=== PATIENT | female | born 1950 | race Caucasian/White ===

== ENCOUNTER 2017-04-28 20:31 | Inpatient (IN) | payer MEDICAID, MEDICARE ==
[2017-04-28 20:53] LABS: BASO # 0.1 K/uL (0.0-0.2); BASO % 1.2 % (0.0-2.0); EOS # 0.2 K/uL (0.0-0.7); EOS % 3.2 % (0.0-4.0); HEMATOCRIT 38.4 % (34.0-47.0); LYMPH # 2.4 K/uL (1.0-4.3); LYMPH % 37.8 % (20.0-40.0); MEAN CELL VOLUME 84.5 fL (81.0-99.0); MEAN CORPUSCULAR HEMOGLOBIN 29.3 pg (27.0-31.0); MEAN CORPUSCULAR HGB CONC 34.7 g/dL (33.0-37.0); MEAN PLATELET VOLUME 7.5 fL (7.2-11.7); MONO # 0.4 K/uL (0.0-0.8); MONO % 5.9 % (0.0-10.0); NRBC % 0.1 % (0.0-2.0); WHITE BLOOD COUNT 6.5 K/uL (4.8-10.8)
[2017-04-28] MEDS ORDERED: Alum-Mag Hydrox-Simethicone Susp (30 mL) PO STA (20:58)
[2017-04-28 20:59] LABS: CHLORIDE 104 mmol/L (98-107)
[2017-04-28 21:00] LABS: POTASSIUM 4.1 mmol/L (3.6-5.2); SODIUM 141 mmol/L (132-148)
[2017-04-28] MEDS ORDERED: Aluminum Hydroxide/Magnesium Hydroxide Susp (30 mL) ONE (21:01)
[2017-04-28 21:02] LABS: ALB/GLOB RATIO 1.2 (1.0-2.1); ALKALINE PHOSPHATASE 115 U/L (38-126); AST/SGOT 27 U/L (14-36); BILIRUBIN,TOTAL 0.5 mg/dL (0.2-1.3); BLOOD UREA NITROGEN 9 mg/dL (7-17); CARBON DIOXIDE 24 mmol/L (22-30); GFR AFRICAN-AMERICAN > 60; TOTAL PROTEIN 7.3 g/dL (6.3-8.3)
[2017-04-28 21:03] LABS: ALT/SGPT 38 U/L (9-52); CALCIUM 8.7 mg/dl (8.6-10.4); GLUCOSE,RANDOM 200 mg/dL (65-105)
[2017-04-28] MEDS ORDERED: Nitroglycerin 2% Ointment Foilpak UD TOP STA (21:23)
[2017-04-28] MEDS ORDERED: Nitroglycerin 2% Ointment Foilpak UD TOP ONE (21:29)
[2017-04-28 21:36] LABS: MAGNESIUM 1.8 mg/dL (1.6-2.3)
--- NOTE | 2017-04-28 21:43 | C.PDOC ---
Time Seen by Provider: 04/28/17 20:42 Chief Complaint (Nursing): Chest Pain History Per: Patient Onset/Duration Of Symptoms: Days (about 3 weeks), Intermittent Episodes Current Symptoms Are (Timing): Still Present Severity: Moderate Quality: Burning, Pressure, "Pain" Associated Symptoms: Dyspnea Modifying Factors: Other Indicated Below Alleviating Factors: None Nitro Therapy Administered: 1, Per ED, Complete Relief Additional History Per: Prior Records Past Medical History Reviewed: Historical Data, Nursing Documentation, Vital Signs Vital Signs: Last Vital Signs Temp 98.2 F 04/28/17 20:43 Pulse 88 04/28/17 21:57 Resp 18 04/28/17 21:57 BP 154/70 H 04/28/17 21:57 Pulse Ox 96 04/28/17 21:57 - Medical History PMH: Arthritis, Asthma, Bipolar Disorder, Diabetes, Gastritis, HTN, Schizophrenia Surgical History: Cholecystectomy Family History: States: Unknown Family Hx - Social History Hx Tobacco Use: No Hx Alcohol Use: No Hx Substance Use: No - Immunization History Hx Tetanus Toxoid Vaccination: No Hx Influenza Vaccination: No Hx Pneumococcal Vaccination: No Review Of Systems Except As Marked, All Systems Reviewed And Found Negative. Constitutional: Negative for: Fever Cardiovascular: Positive for: Chest Pain Respiratory: Negative for: Hemoptysis Gastrointestinal: Positive for: Nausea. Negative for: Vomiting Genitourinary: Negative for: Dysuria Musculoskeletal: Positive for: Back Pain. Negative for: Neck Pain, Leg Pain Skin: Negative for: Rash Neurological: Negative for: Weakness, Numbness, Seizures, Altered Mental Status Physical Exam - Physical Exam Appears: In Acute Distress (mild) Skin: Normal Color, Warm, Dry, No Rash Head: Atraumatic, Normacephalic Eye(s): bilateral: Normal Inspection, PERRL, EOMI Neck: Normal ROM, Supple Chest: Symmetrical, No Deformity Cardiovascular: Rhythm Regular Respiratory: Normal Breath Sounds, No Accessory Muscle Use Gastrointestinal/Abdominal: Soft, No Tenderness Back: No CVA Tenderness Extremity: Normal ROM, No Pedal Edema, No Calf Tenderness Neurological/Psych: Oriented x3, Normal Motor, Normal Sensation ED Course And Treatment - Laboratory Results Result Diagrams: 04/28/17 20:45 04/28/17 20:45 Lab Interpretation: No Acute Changes ECG: Interpreted By Me, Viewed By Me ECG Rhythm: Sinus Tachycardia, Nonspecific Changes ECG Interpretation: Abnormal Interpretation Of ECG: Prolonged QTc Rate From EC O2 Sat by Pulse Oximetry: 98 Pulse Ox Interpretation: Normal - Radiology CXR: Interpreted by Me, Viewed By Me CXR Interpretation: Yes: No Acute Disease Progress - Interventions Interventions:: Observation, Oxygen - Medications Administered Oral: Antacid, Other (Plavix) - Data Reviewed Data Reviewed: Lab, Diagnostic imaging, EKG, Old records - Patient Status Patient status: Mostly improved - Critical Care Citical Care: Excluding Proc Time Critical Care Time: 45 minutes - Continuity of Care Discussed patient case with:: Patient, ED Nurse Disposition Discussed With : Darwin Arredondo Comment: He accepted pt on his service and gave admitting orders to the nurse. Doctor Will See Patient In The: Hospital Counseled Patient/Family Regarding: Studies Performed, Diagnosis - Disposition Disposition: HOSPITALIZED Disposition Time: 22:34 Condition: FAIR - Clinical Impression Clinical Impression: Chest pain, Hypertension
[2017-04-28] MEDS: QUEtiapine 200 mg XR Tab PO SCH (23:15)
[2017-04-29] MEDS: Oxycodone/Acetaminophen 5/325 mg Tab PO PRN ×3 (03:53→21:07)
--- NOTE | 2017-04-29 08:40 | RAD ---
HISTORY: chest pain htn COMPARISON: S radiographs 01/21/2015 FINDINGS: LUNGS: No active pulmonary disease. PLEURA: No significant pleural effusion identified, no pneumothorax apparent. CARDIOVASCULAR: Normal. OSSEOUS STRUCTURES: No significant abnormalities. VISUALIZED UPPER ABDOMEN: Normal. OTHER FINDINGS: None. IMPRESSION: No acute cardiopulmonary disease or significant interval change compared to 01/21/2015 radiographs.
--- NOTE | 2017-04-29 11:22 | CP.PCM.PN ---
Subjective - Date & Time of Evaluation Date of Evaluation: 04/29/17 Time of Evaluation: 07:45 - Subjective Subjective: PGY-[address] Arredondo Patient seen and examined at bedside. Patient reports to have an episode chest pain early in the morning. Pain medication was given and pain was resolved. Patient reports she had a stress test done many years ago and does not remember the results. Patient reports that she has many family members had cardiovascular disease. Patient denies headache, fever, chills, shortness of breath, nausea, vomiting or diarrhea. Objective - Vital Signs/Intake and Output Vital Signs (last 24 hours): Temp Pulse Resp BP Pulse Ox 97.4 F L 85 20 118/64 98 04/29/17 07:15 04/29/17 07:15 04/29/17 07:15 04/29/17 07:15 04/29/17 07:15 Intake and Output: 04/29/17 04/29/17 06:59 18:59 Intake Total 240 Balance 240 - Medications Medications: Current Medications Clonazepam (Klonopin) 0.5 mg PO TID [facility] Last Admin: 04/29/17 09:52 Dose: 0.5 mg Clopidogrel Bisulfate (Plavix) 75 mg PO DAILY [facility] Last Admin: 04/29/17 09:52 Dose: 75 mg Gabapentin (Neurontin) 1,200 mg PO BID [facility] Last Admin: 04/29/17 09:52 Dose: 1,200 mg Heparin Sodium/Sodium Chloride (Heparin 18255 Units/250ml 1/2 Normal Saline) 25 ,000 units in 250 mls @ 8.981 mls/hr IV .Q24H PRN; Protocol; 12 UNITS/KG/HR PRN Reason: PROTOCOL Metoprolol Tartrate (Lopressor) 50 mg PO BID [facility] Last Admin: 04/29/17 09:52 Dose: 50 mg Nitroglycerin (Nitrostat Sl Tab) 0.4 mg SL Q5M PRN PRN Reason: chest pain Oxycodone/Acetaminophen (Percocet 5/325 Mg Tab) 1 tab PO Q4H PRN PRN Reason: Pain, moderate (4-7) Stop: 05/01/17 22:39 Last Admin: 04/29/17 08:58 Dose: 1 tab Pneumococcal Polyvalent Vaccine (Pneumovax 23 Vaccine) 0.5 ml IM .ONCE ONE Stop: 05/01/17 14:01 Quetiapine Fumarate (Seroquel Xr) 600 mg PO HS [facility] Last Admin: 04/28/17 23:15 Dose: 600 mg - Labs Labs: PT 11.6 SECONDS (9.7-12.2) 04/28/17 20:45 INR 1.0 04/28/17 20:45 APTT 34 SECONDS (21-34) 04/28/17 20:45 - Constitutional Appears: Non-toxic, No Acute Distress - Head Exam Head Exam: ATRAUMATIC - Eye Exam Eye Exam: Normal appearance - ENT Exam ENT Exam: Mucous Membranes Moist - Neck Exam Neck Exam: Normal Inspection - Respiratory Exam Respiratory Exam: Clear to Ausculation Bilateral, NORMAL BREATHING PATTERN. absent: Respiratory Distress - Cardiovascular Exam Cardiovascular Exam: REGULAR RHYTHM, +S1, +S2 - GI/Abdominal Exam GI & Abdominal Exam: Soft, Normal Bowel Sounds. absent: Tenderness - Extremities Exam Extremities Exam: Full ROM, Normal Capillary Refill, Normal Inspection. absent : Joint Swelling, Pedal Edema - Neurological Exam Neurological Exam: Alert, Awake, Oriented x3 - Psychiatric Exam Psychiatric exam: Normal Affect, Normal Mood - Skin Skin Exam: Normal Color, Warm Assessment and Plan - Assessment and Plan (Free Text) Assessment: Chest pain -Cardiology consult, Dr. Rowe help appreciated -Planned for cardiac cath on Tuesday -Positive troponin at 0.1920 x2 -EKG showed sinus tachycardia at [address] changes -CXR no active disease -Plavix 75mg po, allergic to ASA -Heparin 1000 unit/hr, after 5000 unit bolus -Nitroglycerin 0.4mg Q5m prn -O2 via NC HTN -metoprolol 50mg po BID DM -A1c 8.6 -ISS -accucheck ACHS -Januvia 100mg (pt takes Onglyza 5mg po, pharmacy confirmed) Bipolar disorder -Seroquel 600mg hs PPX -Heparin -Protonix Case discussed with Dr. Arredondo
[2017-04-29] MEDS: Heparin25000 units/250ml 1/2NS 25,000 UNITS/250 ML BAG IV PRN (12:06)
[2017-04-29] MEDS: (Novolog) Insulin Aspart, Recombinant 100 u/ml 10 ml vial SC SCH ×3 (12:44→21:51)
[2017-04-29 17:05] LABS: CHOLESTEROL 160 mg/dL (0-199)
--- NOTE | 2017-04-29 17:13 | CARD ---
APPROVED REPORT EXAM: Two-dimensional and M-mode echocardiogram with Doppler and color Doppler. Other Information Quality : GoodRhythm : NSR INDICATION Chest Pain Acute Coronary Syndrome RISK FACTORS Hypertension 2D DIMENSIONS IVSd1.3 (0.7-1.1cm)LVDd3.9 (3.9-5.9cm) PWd1.3 (0.7-1.1cm)LVDs2.7 (2.5-4.0cm) FS (%) 30.2 %LVEF (%)58.2 (>50%) M-Mode DIMENSIONS Left Atrium (MM)3.52 (2.5-4.0cm)IVSd0.96 (0.7-1.1cm) Aortic Root3.06 (2.2-3.7cm)LVDd4.86 (4.0-5.6cm) Aortic Cusp Exc.2.00 (1.5-2.0cm)PWd0.94 (0.7-1.1cm) FS (%) 32 %LVDs3.29 (2.0-3.8cm) LVEF (%)60 (>50%) Mitral Valve MV E Mweibzdk52.9cm/sMV A Jtacmyts067.1cm/sE/A ratio0.6 TDI E/Lateral E'0.0E/Medial E'0.0 LEFT VENTRICLE The left ventricle is normal size. There is mild concentric left ventricular hypertrophy. Left ventricle systolic function is normal. The Ejection Fraction is 55-60%. There is normal LV segmental wall motion. Tissue Doppler imaging reveals abnormal left ventricular diastolic dysfunction. RIGHT VENTRICLE The right ventricle is normal size. There is normal right ventricular wall thickness. The right ventricular systolic function is normal. ATRIA The left atrium size is normal. The right atrium size is normal. The interatrial septum is intact with no evidence for an atrial septal defect. AORTIC VALVE The aortic valve is normal in structure. No aortic regurgitation is present. There is no aortic valvular stenosis. There is no aortic valvular vegetation. MITRAL VALVE The mitral valve is normal in structure. There is no evidence of mitral valve prolapse. There is no mitral valve stenosis. There is no mitral valve regurgitation noted. TRICUSPID VALVE The tricuspid valve is normal in structure. There is no tricuspid valve regurgitation noted. There is no tricuspid valve prolapse or vegetation. There is no tricuspid valve stenosis. PULMONIC VALVE The pulmonic valve is not well visualized. There is no pulmonic valvular regurgitation. GREAT VESSELS The aortic root is normal in size. PERICARDIAL EFFUSION There is no significant pericardial effusion. <Conclusion> Left ventricle systolic function is normal. The Ejection Fraction is 55-60%. Hypertensive heart disease. Diastolic dysfunction. No aortic regurgitation is present. There is no mitral valve regurgitation noted. There is no tricuspid valve regurgitation noted. There is no pulmonic valvular regurgitation.
[2017-04-29] MEDS: QUEtiapine 200 mg XR Tab PO SCH (21:00)
[2017-04-29] MEDS ORDERED: QUEtiapine 200 mg XR Tab PO SCH ×2 (22:00)
--- NOTE | 2017-04-29 22:21 | HP ---
HISTORY OF PRESENT ILLNESS: A 66-year-old female admitted to the hospital with chief complaint of chest pain, which is sternal. The patient came to the emergency room, advised admission. The patient has hypertension and diabetes. The patient is a nonsmoker. PHYSICAL EXAMINATION: GENERAL: The patient is awake, obese. VITAL SIGNS: Temperature 98, pulse 90. HEENT: Within normal limits. NECK: Supple. CHEST: Symmetrical. HEART: Regular. ABDOMEN: Soft. EXTREMITIES: No edema. IMPRESSION: The patient suffers from acute coronary syndrome . Darwin Arredondo MD
--- NOTE | 2017-04-30 06:46 | CP.PCM.CON ---
History of Present Illness - History of Present Illness History of Present Illness: CC: Consult for Non St elevation [place] HPI: 66 F with strong F Hx of CAD/[place], HTN, Hyperlipidemia and Obesity admitted for chest pain radiating to back. susequently ruled in for [place] Patient allergic to ASA. started on IV Heparin, Plavix, Statins and B blockers Will check ECHO For cath Tuesday D/W Patient Review of Systems - Cardiovascular Cardiovascular: Chest Pain - Respiratory Respiratory: Dyspnea - Gastrointestinal Gastrointestinal: absent: Abdominal Pain Past Patient History - Past Medical History & Family History Past Medical History?: Yes - Past Social History Smoking Status: Former Smoker - CARDIAC Hx Cardiac Disorders: Yes Hx Angina: No Hx Atrial Fibrillation: No Hx Cardia Arrhythmia: No Hx Circulatory Problems: No Hx Congestive Heart Failure: No Hx Heart Attack: No Hx Heart Murmur: No Hx Heart Transplant: No Hx Hypercholesterolemia: No Hx Hypertension: Yes Hx Hypotension: No Hx Internal Defibrillator: No Hx Mitral Valve Prolapse: No Hx Pacemaker: No Hx Peripheral Edema: No Hx Peripheral Vascular Disease: No - PULMONARY Hx Respiratory Disorders: Yes Hx Asthma: Yes Hx Bronchitis: No Hx Chronic Obstructive Pulmonary Disease (COPD): No Hx Emphysema: No Hx Lung Cancer: No Hx Pneumonia: No Hx Pulmonary Edema: No Hx Pulmonary Embolism: No Hx Respiratory Aspiration: No Hx Respiratory Tract Infection: No Hx Sleep Apnea: No Hx Tuberculosis: No - NEUROLOGICAL Hx Neurological Disorder: No Hx Alzheimer's Disease: No HX Cerebrovascular Accident: No Hx Dementia: No Hx Dizziness: No Hx Meningitis: No Hx Migraine: No Hx Multiple Sclerosis: No Hx Paralysis: No Hx Parkinson's Disease: No Hx Seizures: No Hx Syncope: No Hx Transient Ischemic Attacks (TIA): No Hx Vertigo: No - HEENT Hx HEENT Problems: No Hx Blind: No Hx Cataracts: No Hx Deafness: No Hx Difficulty Chewing: No Hx Epistaxis: No Hx Glaucoma: No Hx Macular Degeneration: No Hx Sinusitis: No - RENAL Hx Chronic Kidney Disease: No Hx Dialysis: No Hx Kidney Stones: No Hx Neurogenic Bladder: No Hx Pyelonephritis: No Hx Renal (Kidney) Cancer: No Hx Renal Failure: No - ENDOCRINE/METABOLIC Hx Endocrine Disorders: Yes Hx Adrenal Cancer: No Hx Diabetes Insipidus: No Hx Diabetes Mellitus Type 1: No Hx Diabetes Mellitus Type 2: Yes Hx Hyperthyroidism: No Hx Hypothyroidism: No Hx Systemic Lupus Erythematosus: No - HEMATOLOGICAL/ONCOLOGICAL Hx Blood Disorders: No Hx AIDS: No Hx Anemia: No Hx Blood Transfusions: No Hx Blood Transfusion Reaction: No Hx Bruising: No Hx Cancer: No Hx Chemotherapy: No Hx Cirrhosis: No Hx Gum Bleeding: No Hx Hemophilia: No Hx Hepatitis A: No Hx Hepatitis B: No Hx Hepatitis C: No Hx Human Immunodeficiency Virus (HIV): No Hx Leukemia: No Hx Metastesis: No Hx Shingles: No Hx Sickle Cell Disease: No Hx Unexplained Bleeding: No Hx von Willebrand's Disease: No - INTEGUMENTARY Hx Dermatological Problems: No Hx Basil Cell: No Hx Whatley: No Hx Cellulitis: No Hx Eczema: No Hx Melanoma: No Hx Psoriasis: No Hx Squamous Cell: No - MUSCULOSKELETAL/RHEUMATOLOGICAL Hx Musculoskeletal Disorders: Yes Hx Arthritis: Yes Hx Back Pain: No Hx Degenerative Joint Disease: No Hx Falls: No Hx Fractures: No Hx Gout: No Hx Herniated Disk: No Hx Myasthenia Gravis: No Hx Osteoarthritis: No Hx Osteomyelitis: No Hx Osteoporosis: No Hx Rhabdomyolysis: No Hx Rheumatoid Arthritis: No Hx Spinal Stenosis: No Hx Unsteady Gait: No - GASTROINTESTINAL Hx Gastrointestinal Disorders: Yes Hx Bowel Surgery: No Hx Clostridium Difficile: No Hx Colitis: No Hx Colostomy: No Hx Constipation: No Hx Crohn's Disease: No Hx Diarrhea: No Hx Diverticulitis: No Hx Esophageal Varices: No Hx Fatty Liver Disease: No Hx Gall Bladder Disease: No Hx Gastritis: Yes Hx Gastroesophageal Reflux: No Hx Hemorrhoids: No Hx Ileostomy: No Hx Irritable Bowel: No Hx Liver Failure: No Hx Nausea: No Hx Pancreatitis: No HX Swallowing Problems: No Hx Ulcer: No Hx Vomiting: No - GENITOURINARY/GYNECOLOGICAL Hx Genitourinary Disorders: No Hx Bladder Cancer: No Hx Bladder Stone: No Hx Cervical Cancer: No Hx Hematuria: No Hx Incontinence: No Hx Ovarian Cancer: No Hx Postmenopausal Bleeding: No Hx Reproductive Disorders: No Hx Sexually Transmitted Disorders: No Hx Uterine Cancer: No Hx Urinary Tract Infection: No - PSYCHIATRIC Hx Psychophysiologic Disorder: Yes Hx Anxiety: No Hx Bipolar Disorder: Yes Hx Depression: No Hx Emotional Abuse: No Hx Hallucinations: No Hx Panic Symptoms: No Hx Paranoia: No Hx Post Traumatic Stress Disorder: No Hx Psychosis: No Hx Physical Abuse: No Hx Schizophrenia: Yes Hx Sexual Abuse: No Hx Substance Use: No - SURGICAL HISTORY Hx Surgeries: Yes Hx Abdominal Aortic Aneurysm Repair: No Hx Amputation: No Hx Angiogram: No Hx Angioplasty: No Hx Appendectomy: No Hx Arteriovenous Shunt: No Hx Arthroscopy: No Hx Bile Duct Stent: No Hx Breast Biopsy: No Hx Cataract Extraction: No Hx Cardiac Catheterization: No Hx Carotid Endarterectomy: No Hx Section: No Hx Cholecystectomy: Yes Hx Coronary Artery Bypass Graft: No Hx Coronary Stent: No Hx Dilation and Curettage: No Hx Eye Surgery: No Hx Femoral-Popliteal Bypass Graft: No Hx Gastric Bypass Surgery: No Hx Herniorrhaphy: No Hx Hysterectomy: No Hx Joint Replacement: No Hx Kidney Transplant: No Hx Liver Transplant: No Hx Mastectomy: No Hx Musculoskeletal Surgery: No Hx Open Heart Surgery: No Hx Open Reduction Internal Fixation: No Hx Orthopedic Surgery: No Hx Parathyroidectomy: No Hx Penile Implant: No Hx Pulmonary Surgery: No Hx Splenectomy: No Hx Thyroidectomy: No Hx Tonsillectomy: No Hx Tubal Ligation: No Hx Valve Replacement: No Hx Vascular Surgery: No Hx Vascular Access Device: No Meds Allergies/Adverse Reactions: Allergies Allergy/AdvReac Type Severity Reaction Status Date / Time aspirin Allergy Severe hives Verified 04/28/17 20:41 seafood Allergy Severe hives Uncoded 04/28/17 20:41 - Medications Medications: Current Medications Clonazepam (Klonopin) 0.5 mg PO TID [facility] Last Admin: 04/29/17 17:37 Dose: 0.5 mg Clopidogrel Bisulfate (Plavix) 75 mg PO DAILY [facility] Last Admin: 04/29/17 09:52 Dose: 75 mg Famotidine (Pepcid) 20 mg PO DAILY [facility] Gabapentin (Neurontin) 1,200 mg PO BID [facility] Last Admin: 04/29/17 17:37 Dose: 1,200 mg Heparin Sodium/Sodium Chloride (Heparin 64107 Units/250ml 1/2 Normal Saline) 25 ,000 units in 250 mls @ 8.981 mls/hr IV .Q24H PRN; Protocol; 12 UNITS/KG/HR PRN Reason: PROTOCOL Last Admin: 04/29/17 12:06 Dose: 12 units/kg/hr, 8.981 mls/hr Insulin Aspart (Novolog) 0 unit SC ACHS REPLACED BY [facility] PRN Reason: Protocol Last Admin: 04/29/17 21:51 Dose: Not Given Metoprolol Tartrate (Lopressor) 50 mg PO BID [facility] Last Admin: 04/29/17 17:38 Dose: 50 mg Nitroglycerin (Nitrostat Sl Tab) 0.4 mg SL Q5M PRN PRN Reason: chest pain Oxycodone/Acetaminophen (Percocet 5/325 Mg Tab) 1 tab PO Q4H PRN PRN Reason: Pain, moderate (4-7) Stop: 05/01/17 22:39 Last Admin: 04/29/17 21:07 Dose: 1 tab Pneumococcal Polyvalent Vaccine (Pneumovax 23 Vaccine) 0.5 ml IM .ONCE ONE Stop: 05/01/17 14:01 Quetiapine Fumarate (Seroquel Xr) 600 mg PO [facility] Last Admin: 04/29/17 21:00 Dose: 600 mg Sitagliptin Phosphate (Januvia) 100 mg PO DAILY [facility] Physical Exam - Head Exam Head Exam: ATRAUMATIC, NORMAL INSPECTION - Eye Exam Eye Exam: EOMI, PERRL Pupil Exam: NORMAL ACCOMODATION - ENT Exam ENT Exam: Mucous Membranes Moist, Normal Exam - Neck Exam Neck exam: Positive for: Normal Inspection - Respiratory Exam Respiratory Exam: Clear to Auscultation Bilateral, NORMAL BREATHING PATTERN - Cardiovascular Exam Cardiovascular Exam: REGULAR RHYTHM, +S1, +S2 - GI/Abdominal Exam GI & Abdominal Exam: Normal Bowel Sounds, Soft - Back Exam Back exam: NORMAL INSPECTION - Neurological Exam Neurological exam: Alert, CN II-XII Intact, Oriented x3 - Psychiatric Exam Psychiatric exam: Normal Mood - Skin Skin Exam: Warm Results - Vital Signs Recent Vital Signs: Last Vital Signs Temp 97.9 F 04/29/17 23:40 Pulse 81 04/30/17 00:26 Resp 20 04/29/17 23:40 BP 122/63 04/29/17 23:40 Pulse Ox 97 04/29/17 23:40 - Labs Result Diagrams: 05/01/17 07:18 05/01/17 07:18 Labs: Laboratory Results - last 24 hr 04/29/17 04/29/17 04/29/17 06:23 07:09 11:06 APTT POC Glucose (mg/dL) 151 H 168 H Total Creatine Kinase 51 CK-MB (Mass) 1.82 Troponin I, Quant 0.1920 H* Triglycerides Cholesterol LDL Cholesterol Direct HDL Cholesterol 04/29/17 04/29/17 04/29/17 13:46 16:21 16:54 APTT POC Glucose (mg/dL) 115 H Total Creatine Kinase 47 CK-MB (Mass) 1.47 Troponin I, Quant 0.1920 H* Triglycerides 276 H Cholesterol 160 LDL Cholesterol Direct 100 HDL Cholesterol 34 04/29/17 04/29/17 04/29/17 18:25 21:09 23:55 APTT 78 H D 86 H D POC Glucose (mg/dL) 182 H Total Creatine Kinase CK-MB (Mass) Troponin I, Quant Triglycerides Cholesterol LDL Cholesterol Direct HDL Cholesterol Assessment & Plan - Assessment and Plan (Free Text) Assessment: 1. Chest Pain 2. Non St elevation [place] 3. Obesity 4. Hx of tobacco use 5. Hyperlipidemia 6. strong F hx of CAD/[place] Patient on anti ischemic therapy For cath Tuesday
[2017-04-30] MEDS: (Novolog) Insulin Aspart, Recombinant 100 u/ml 10 ml vial SC SCH ×4 (07:33→21:55)
[2017-04-30 08:11] LABS: BASO # 0.1 K/uL (0.0-0.2); EOS # 0.2 K/uL (0.0-0.7); EOS % 3.2 % (0.0-4.0); LYMPH # 1.7 K/uL (1.0-4.3); LYMPH % 30.8 % (20.0-40.0); MEAN CELL VOLUME 83.7 fL (81.0-99.0); MEAN CORPUSCULAR HEMOGLOBIN 28.8 pg (27.0-31.0); MEAN CORPUSCULAR HGB CONC 34.4 g/dL (33.0-37.0); MEAN PLATELET VOLUME 7.5 fL (7.2-11.7); MONO # 0.4 K/uL (0.0-0.8); MONO % 6.7 % (0.0-10.0); NRBC % 0.1 % (0.0-2.0); RED CELL DISTRIBUTION WIDTH 13.2 % (11.5-14.5); WHITE BLOOD COUNT 5.6 K/uL (4.8-10.8)
[2017-04-30 08:31] LABS: ALB/GLOB RATIO 1.1 (1.0-2.1); ALKALINE PHOSPHATASE 121 U/L (38-126); ALT/SGPT 39 U/L (9-52); AST/SGOT 23 U/L (14-36); BILIRUBIN,TOTAL 0.4 mg/dL (0.2-1.3); BLOOD UREA NITROGEN 10 mg/dL (7-17); CALCIUM 9.1 mg/dl (8.6-10.4); CARBON DIOXIDE 28 mmol/L (22-30); CHLORIDE 99 mmol/L (98-107); GFR AFRICAN-AMERICAN > 60; GLUCOSE,RANDOM 148 mg/dL (65-105); POTASSIUM 4.2 mmol/L (3.6-5.2); SODIUM 138 mmol/L (132-148); TOTAL PROTEIN 6.7 g/dL (6.3-8.3)
[2017-04-30] MEDS: Oxycodone/Acetaminophen 5/325 mg Tab PO PRN ×2 (08:36→21:37)
[2017-04-30] MEDS: Heparin25000 units/250ml 1/2NS 25,000 UNITS/250 ML BAG IV PRN (17:06)
--- NOTE | 2017-04-30 21:30 | CP.PCM.PN ---
Subjective - Date & Time of Evaluation Date of Evaluation: 04/30/17 Time of Evaluation: 13:05 - Subjective Subjective: Patient seen and evaluated Feels better No more chest discomfort Objective - Vital Signs/Intake and Output Vital Signs (last 24 hours): Temp Pulse Resp BP Pulse Ox 98.5 F 81 20 123/76 95 04/30/17 16:19 04/30/17 16:19 04/30/17 16:19 04/30/17 16:19 04/30/17 16:19 Intake and Output: 04/30/17 05/01/17 18:59 06:59 Intake Total 250 Balance 250 - Medications Medications: Current Medications Clonazepam (Klonopin) 0.5 mg PO TID [facility] Last Admin: 04/30/17 17:08 Dose: 0.5 mg Clopidogrel Bisulfate (Plavix) 75 mg PO DAILY [facility] Last Admin: 04/30/17 09:46 Dose: 75 mg Famotidine (Pepcid) 20 mg PO DAILY [facility] Last Admin: 04/30/17 09:47 Dose: 20 mg Gabapentin (Neurontin) 1,200 mg PO BID [facility] Last Admin: 04/30/17 17:08 Dose: 1,200 mg Heparin Sodium/Sodium Chloride (Heparin 69504 Units/250ml 1/2 Normal Saline) 25 ,000 units in 250 mls @ 8.981 mls/hr IV .Q24H PRN; Protocol; 12 UNITS/KG/HR PRN Reason: PROTOCOL Last Admin: 04/30/17 17:06 Dose: 12 units/kg/hr, 8.981 mls/hr Insulin Aspart (Novolog) 0 unit SC ACHS [facility] PRN Reason: Protocol Last Admin: 04/30/17 19:42 Dose: Not Given Metoprolol Tartrate (Lopressor) 50 mg PO BID [facility] Last Admin: 04/30/17 17:10 Dose: 50 mg Nitroglycerin (Nitrostat Sl Tab) 0.4 mg SL Q5M PRN PRN Reason: chest pain Oxycodone/Acetaminophen (Percocet 5/325 Mg Tab) 1 tab PO Q4H PRN PRN Reason: Pain, moderate (4-7) Stop: 05/01/17 22:39 Last Admin: 04/30/17 08:36 Dose: 1 tab Pneumococcal Polyvalent Vaccine (Pneumovax 23 Vaccine) 0.5 ml IM .ONCE ONE Stop: 05/01/17 14:01 Quetiapine Fumarate (Seroquel Xr) 600 mg PO HS [facility] Last Admin: 04/29/17 21:00 Dose: 600 mg Sitagliptin Phosphate (Januvia) 100 mg PO DAILY [facility] Last Admin: 04/30/17 09:47 Dose: 100 mg - Labs Labs: 04/30/17 07:56 04/30/17 07:56 PT 11.6 SECONDS (9.7-12.2) 04/28/17 20:45 INR 1.0 04/28/17 20:45 APTT 86 SECONDS (21-34) H D 04/29/17 23:55 - Head Exam Head Exam: ATRAUMATIC, NORMAL INSPECTION, NORMOCEPHALIC - Eye Exam Eye Exam: EOMI, Normal appearance, PERRL Pupil Exam: NORMAL ACCOMODATION - ENT Exam ENT Exam: Mucous Membranes Moist, Normal Exam - Neck Exam Neck Exam: Normal Inspection - Respiratory Exam Respiratory Exam: Clear to Ausculation Bilateral, NORMAL BREATHING PATTERN - Cardiovascular Exam Cardiovascular Exam: REGULAR RHYTHM, +S1, +S2 - GI/Abdominal Exam GI & Abdominal Exam: Soft, Normal Bowel Sounds - Extremities Exam Extremities Exam: Full ROM - Neurological Exam Neurological Exam: Alert, CN II-XII Intact, Oriented x3 - Skin Skin Exam: Warm Assessment and Plan - Assessment and Plan (Free Text) Assessment: 1. Chest Pain 2. Non St elevation [place] 3. Obesity 4. Hx of tobacco use 5. Hyperlipidemia 6. strong F hx of CAD/[place] Patient on anti ischemic therapy For cath Tuesday Change Heparin IV to DVT prophylaxis
[2017-04-30] MEDS: QUEtiapine 200 mg XR Tab PO SCH (21:38)
[2017-05-01] MEDS: Oxycodone/Acetaminophen 5/325 mg Tab PO PRN ×2 (06:18→16:41)
[2017-05-01] MEDS: (Novolog) Insulin Aspart, Recombinant 100 u/ml 10 ml vial SC SCH ×4 (07:40→23:45)
[2017-05-01 07:45] LABS: BASO # 0.1 K/uL (0.0-0.2); EOS # 0.2 K/uL (0.0-0.7); EOS % 3.2 % (0.0-4.0); HEMATOCRIT 38.8 % (34.0-47.0); LYMPH # 2.2 K/uL (1.0-4.3); LYMPH % 40.1 % (20.0-40.0); MEAN CELL VOLUME 84.4 fL (81.0-99.0); MEAN CORPUSCULAR HEMOGLOBIN 28.9 pg (27.0-31.0); MEAN CORPUSCULAR HGB CONC 34.3 g/dL (33.0-37.0); MEAN PLATELET VOLUME 7.6 fL (7.2-11.7); MONO # 0.4 K/uL (0.0-0.8); MONO % 7.1 % (0.0-10.0); NRBC % 0.2 % (0.0-2.0); WHITE BLOOD COUNT 5.4 K/uL (4.8-10.8)
[2017-05-01 07:54] LABS: ALB/GLOB RATIO 1.2 (1.0-2.1); ALKALINE PHOSPHATASE 118 U/L (38-126); ALT/SGPT 33 U/L (9-52); AST/SGOT 23 U/L (14-36); BILIRUBIN,TOTAL 0.4 mg/dL (0.2-1.3); BLOOD UREA NITROGEN 12 mg/dL (7-17); CALCIUM 9.4 mg/dl (8.6-10.4); CARBON DIOXIDE 26 mmol/L (22-30); CHLORIDE 98 mmol/L (98-107); GFR AFRICAN-AMERICAN > 60; GLUCOSE,RANDOM 163 mg/dL (65-105); POTASSIUM 3.9 mmol/L (3.6-5.2); SODIUM 136 mmol/L (132-148); TOTAL PROTEIN 6.9 g/dL (6.3-8.3)
[2017-05-01] MEDS ORDERED: Pneumococcal 23-Valent Vaccine IM ONE (14:00)
--- NOTE | 2017-05-01 14:47 | US ---
PROCEDURE: Ultrasound of the Bladder HISTORY: right flank pain COMPARISON: None available. TECHNIQUE: Sonographic evaluation of the bladder was performed. FINDINGS: Unremarkable without wall thickening or intraluminal debris. No calculus or gross mass lesion. No free fluid in pelvis. Prevoid Volume: 215.6 cc. Post void residual: 36.3 cc. IMPRESSION: Unremarkable sonogram of the bladder.
[2017-05-01 17:48] LABS: RBC URINE 1 /hpf (0-3); URINE BILIRUBIN NEGATIVE (NEGATIVE); URINE BLOOD NEGATIVE (NEGATIVE); URINE COLOR Colorless (YELLOW); URINE GLUCOSE (UA) NORMAL (Normal); URINE KETONE NEGATIVE (NEGATIVE); URINE LEUKOCYTE ESTERASE NEG Leu/uL (Negative); URINE PROTEIN NEGATIVE (NEGATIVE); URINE UROBILINOGEN NORMAL mg/dL (0.2-1.0); WBC URINE 1 /hpf (0-5)
--- NOTE | 2017-05-01 19:48 | CP.PCM.PN ---
Subjective - Date & Time of Evaluation Date of Evaluation: 05/01/17 Time of Evaluation: 14:30 - Subjective Subjective: Patient seen and evaluated Denies chest pain and dyspnea Objective - Vital Signs/Intake and Output Vital Signs (last 24 hours): Temp Pulse Resp BP Pulse Ox 98.2 F 78 20 124/82 94 L 05/01/17 15:00 05/01/17 15:30 05/01/17 15:00 05/01/17 15:00 05/01/17 15:00 Intake and Output: 05/01/17 05/02/17 18:59 06:59 Intake Total 0 Balance 0 - Medications Medications: Current Medications Clonazepam (Klonopin) 0.5 mg PO TID [facility] Last Admin: 05/01/17 17:23 Dose: 0.5 mg Clopidogrel Bisulfate (Plavix) 75 mg PO DAILY [facility] Last Admin: 05/01/17 10:01 Dose: 75 mg Famotidine (Pepcid) 20 mg PO DAILY [facility] Last Admin: 05/01/17 10:01 Dose: 20 mg Gabapentin (Neurontin) 1,200 mg PO BID [facility] Last Admin: 05/01/17 17:23 Dose: 1,200 mg Heparin Sodium/Sodium Chloride (Heparin 94989 Units/250ml 1/2 Normal Saline) 25 ,000 units in 250 mls @ 8.981 mls/hr IV .Q24H PRN; Protocol; 12 UNITS/KG/HR PRN Reason: PROTOCOL Last Titration: 05/01/17 10:21 Dose: 12 units/kg/hr, 8.981 mls/hr Insulin Aspart (Novolog) 0 unit SC ACHS [facility] PRN Reason: Protocol Last Admin: 05/01/17 16:42 Dose: Not Given Metoprolol Tartrate (Lopressor) 50 mg PO BID [facility] Last Admin: 05/01/17 18:54 Dose: 50 mg Nitroglycerin (Nitrostat Sl Tab) 0.4 mg SL Q5M PRN PRN Reason: chest pain Oxycodone/Acetaminophen (Percocet 5/325 Mg Tab) 1 tab PO Q4H PRN PRN Reason: Pain, moderate (4-7) Stop: 05/01/17 22:39 Last Admin: 05/01/17 16:41 Dose: 1 tab Quetiapine Fumarate (Seroquel Xr) 600 mg PO [facility] Last Admin: 04/30/17 21:38 Dose: 600 mg Sitagliptin Phosphate (Januvia) 100 mg PO DAILY [facility] Last Admin: 05/01/17 10:02 Dose: 100 mg - Labs Labs: 05/01/17 07:18 05/01/17 07:18 PT 11.6 SECONDS (9.7-12.2) 04/28/17 20:45 INR 1.0 04/28/17 20:45 APTT 68 SECONDS (21-34) H D 05/01/17 07:18 - Head Exam Head Exam: ATRAUMATIC, NORMAL INSPECTION, NORMOCEPHALIC - Eye Exam Eye Exam: EOMI, PERRL Pupil Exam: NORMAL ACCOMODATION - ENT Exam ENT Exam: Mucous Membranes Moist, Normal Exam - Neck Exam Neck Exam: Full ROM, Normal Inspection - Respiratory Exam Respiratory Exam: Clear to Ausculation Bilateral, NORMAL BREATHING PATTERN - Cardiovascular Exam Cardiovascular Exam: REGULAR RHYTHM, +S1, +S2 - GI/Abdominal Exam GI & Abdominal Exam: Soft, Normal Bowel Sounds - Back Exam Back Exam: NORMAL INSPECTION - Neurological Exam Neurological Exam: Alert, Awake, CN II-XII Intact, Normal Gait, Oriented x3 - Psychiatric Exam Psychiatric exam: Normal Affect, Normal Mood - Skin Skin Exam: Normal Color, Warm Assessment and Plan - Assessment and Plan (Free Text) Assessment: 1. Chest Pain 2. Non St elevation VT 3. Obesity 4. Hx of tobacco use 5. Hyperlipidemia 6. strong F hx of CAD/VT Patient on anti ischemic therapy Orders written Hold Heparin from midnight NPO after mid night For cath Tomorrow
[2017-05-01] MEDS: QUEtiapine 200 mg XR Tab PO SCH (21:23)
[2017-05-02 07:34] LABS: INR 1.1
[2017-05-02 07:35] LABS: BASO # 0.1 K/uL (0.0-0.2); BASO % 1.1 % (0.0-2.0); EOS # 0.2 K/uL (0.0-0.7); EOS % 3.3 % (0.0-4.0); HEMATOCRIT 39.6 % (34.0-47.0); LYMPH # 1.8 K/uL (1.0-4.3); LYMPH % 34.2 % (20.0-40.0); MEAN CELL VOLUME 83.8 fL (81.0-99.0); MEAN CORPUSCULAR HEMOGLOBIN 28.8 pg (27.0-31.0); MEAN CORPUSCULAR HGB CONC 34.3 g/dL (33.0-37.0); MEAN PLATELET VOLUME 7.6 fL (7.2-11.7); MONO # 0.5 K/uL (0.0-0.8); MONO % 8.9 % (0.0-10.0); WHITE BLOOD COUNT 5.1 K/uL (4.8-10.8)
[2017-05-02] MEDS: (Novolog) Insulin Aspart, Recombinant 100 u/ml 10 ml vial SC SCH ×4 (08:00→22:54)
[2017-05-02 08:11] LABS: CHLORIDE 98 mmol/L (98-107); SODIUM 135 mmol/L (132-148)
[2017-05-02 08:13] LABS: ALB/GLOB RATIO 1.1 (1.0-2.1); AST/SGOT 27 U/L (14-36); BILIRUBIN,TOTAL 0.5 mg/dL (0.2-1.3); BLOOD UREA NITROGEN 11 mg/dL (7-17); CARBON DIOXIDE 27 mmol/L (22-30); GFR AFRICAN-AMERICAN > 60; TOTAL PROTEIN 7.3 g/dL (6.3-8.3)
[2017-05-02 08:14] LABS: ALKALINE PHOSPHATASE 115 U/L (38-126); ALT/SGPT 36 U/L (9-52); CALCIUM 9.4 mg/dl (8.6-10.4); GLUCOSE,RANDOM 155 mg/dL (65-105)
--- NOTE | 2017-05-02 09:28 | CP.PCM.PN ---
Subjective - Date & Time of Evaluation Date of Evaluation: 05/02/17 Time of Evaluation: 09:26 - Subjective Subjective: Medicine Note for Dr. Arredondo's Service Pt seen and examined at bedside. She has nagging chest tightness. She denies any radiation of the pain. She denies SOB. No acute events overnight reported. All other ROS negative. Pt has been maintained NPO and she is being taken for Cath today with Dr. Rowe. Objective - Vital Signs/Intake and Output Vital Signs (last 24 hours): Temp Pulse Resp BP Pulse Ox 98.1 F 96 H 20 123/74 100 05/02/17 08:35 05/02/17 08:35 05/02/17 08:35 05/02/17 08:35 05/02/17 08:35 Intake and Output: 05/02/17 05/02/17 06:59 18:59 Intake Total 0 Balance 0 - Medications Medications: Current Medications Clonazepam (Klonopin) 0.5 mg PO TID [facility] Last Admin: 05/02/17 09:22 Dose: 0.5 mg Clopidogrel Bisulfate (Plavix) 75 mg PO DAILY [facility] Last Admin: 05/01/17 10:01 Dose: 75 mg Famotidine (Pepcid) 20 mg PO DAILY [facility] Last Admin: 05/01/17 10:01 Dose: 20 mg Gabapentin (Neurontin) 1,200 mg PO BID [facility] Last Admin: 05/02/17 09:22 Dose: 1,200 mg Heparin Sodium/Sodium Chloride (Heparin 06746 Units/250ml 1/2 Normal Saline) 25 ,000 units in 250 mls @ 8.981 mls/hr IV .Q24H PRN; Protocol; 12 UNITS/KG/HR PRN Reason: PROTOCOL Last Titration: 05/01/17 10:21 Dose: 12 units/kg/hr, 8.981 mls/hr Insulin Aspart (Novolog) 0 unit SC ACHS [facility] PRN Reason: Protocol Last Admin: 05/02/17 08:00 Dose: Not Given Metoprolol Tartrate (Lopressor) 50 mg PO BID [facility] Last Admin: 05/02/17 09:23 Dose: 50 mg Nitroglycerin (Nitrostat Sl Tab) 0.4 mg SL Q5M PRN PRN Reason: chest pain Quetiapine Fumarate (Seroquel Xr) 600 mg PO HS [facility] Last Admin: 05/01/17 21:23 Dose: 600 mg Sitagliptin Phosphate (Januvia) 100 mg PO DAILY [facility] Last Admin: 05/02/17 09:22 Dose: 100 mg - Labs Labs: 05/02/17 07:18 05/02/17 07:18 PT 12.4 SECONDS (9.7-12.2) H 05/02/17 07:18 INR 1.1 05/02/17 07:18 APTT 36 SECONDS (21-34) H D 05/02/17 07:18 - Constitutional Appears: No Acute Distress - Head Exam Head Exam: ATRAUMATIC, NORMAL INSPECTION - Eye Exam Eye Exam: Normal appearance - ENT Exam ENT Exam: Mucous Membranes Moist - Respiratory Exam Respiratory Exam: Clear to Ausculation Bilateral - Cardiovascular Exam Cardiovascular Exam: REGULAR RHYTHM - GI/Abdominal Exam GI & Abdominal Exam: Soft. absent: Tenderness - Neurological Exam Neurological Exam: Alert, Awake, Oriented x3 Assessment and Plan - Assessment and Plan (Free Text) Plan: NSTEMI -Cardiac Cath today with Dr. Rowe- follow up results -Positive troponin 0.107->0.192->0.192 -EKG: sinus tachycardia at [address] changes -Echo: Diastolic disease; EF 55-60% -CXR no active disease -Plavix 75mg -No ASA- allergic -Heparin 1000 unit/hr, after 5000 unit bolus -Nitroglycerin 0.4mg Q5m prn -O2 via NC -Lipid panel Total Cholesterol: 160 LDL: 100 HDL: 34 Triglycerides: 276 HTN -metoprolol 50mg po BID DM -A1c 8.6 -ISS -accucheck ACHS -Januvia 100mg (pt takes Onglyza 5mg po, pharmacy confirmed) Bipolar disorder -Seroquel 600mg hs PPX -Heparin -Protonix Case discussed with Dr. Arredondo. All management as per Dr. Arredondo.
[2017-05-02] MEDS ORDERED: DiphenhydrAMINE 50 mg/ml Inj ONE (10:55)
[2017-05-02] MEDS ORDERED: Midazolam 2 MG/2 ML VIAL ONE (12:21)
[2017-05-02] MEDS ORDERED: Iohexol 350mg/ml 100 ML ONE (12:22)
[2017-05-02] MEDS ORDERED: Iodixanol 320 MG/ML 100 ML BOTTLE IV ONE (12:28)
[2017-05-02] MEDS ORDERED: Lidocaine 2% Inj (20ml) ONE (13:00)
--- NOTE | 2017-05-02 13:38 | CP.PCM.PN ---
Subjective - Date & Time of Evaluation Date of Evaluation: 05/02/17 Time of Evaluation: 13:38 - Subjective Subjective: Patient s/p cath L Cx mid 99% stenosis Other arteries are open EF 50% For PCI tomorrow ar [facility] Patient will come back after the procedure NPO after breakfast tomorrow Continue all meds Objective - Vital Signs/Intake and Output Vital Signs (last 24 hours): Temp Pulse Resp BP Pulse Ox 98.1 F 96 H 20 123/74 100 05/02/17 08:35 05/02/17 08:35 05/02/17 08:35 05/02/17 08:35 05/02/17 08:35 Intake and Output: 05/02/17 05/02/17 06:59 18:59 Intake Total 0 Balance 0 - Medications Medications: Current Medications Clonazepam (Klonopin) 0.5 mg PO TID [facility] Last Admin: 05/02/17 09:22 Dose: 0.5 mg Clopidogrel Bisulfate (Plavix) 75 mg PO DAILY [facility] Last Admin: 05/01/17 10:01 Dose: 75 mg Famotidine (Pepcid) 20 mg PO DAILY [facility] Last Admin: 05/01/17 10:01 Dose: 20 mg Gabapentin (Neurontin) 1,200 mg PO BID [facility] Last Admin: 05/02/17 09:22 Dose: 1,200 mg Heparin Sodium/Sodium Chloride (Heparin 50023 Units/250ml 1/2 Normal Saline) 25 ,000 units in 250 mls @ 8.981 mls/hr IV .Q24H PRN; Protocol; 12 UNITS/KG/HR PRN Reason: PROTOCOL Last Titration: 05/01/17 10:21 Dose: 12 units/kg/hr, 8.981 mls/hr Insulin Aspart (Novolog) 0 unit SC ACHS [facility] PRN Reason: Protocol Last Admin: 05/02/17 08:00 Dose: Not Given Metoprolol Tartrate (Lopressor) 50 mg PO BID [facility] Last Admin: 05/02/17 09:23 Dose: 50 mg Nitroglycerin (Nitrostat Sl Tab) 0.4 mg SL Q5M PRN PRN Reason: chest pain Quetiapine Fumarate (Seroquel Xr) 600 mg PO HS [facility] Last Admin: 05/01/17 21:23 Dose: 600 mg Sitagliptin Phosphate (Januvia) 100 mg PO DAILY [facility] Last Admin: 05/02/17 09:22 Dose: 100 mg - Labs Labs: 05/02/17 07:18 05/02/17 07:18 PT 12.4 SECONDS (9.7-12.2) H 05/02/17 07:18 INR 1.1 05/02/17 07:18 APTT 36 SECONDS (21-34) H D 05/02/17 07:18
[2017-05-02] MEDS ORDERED: Sodium Chloride 0.9% 1,000 ML IV SCH (14:15)
--- NOTE | 2017-05-02 16:40 | US ---
PROCEDURE: Ultrasound of the Kidneys HISTORY: R Flank Pain COMPARISON: None available. TECHNIQUE: Sonogram of the kidneys. FINDINGS: RIGHT KIDNEY: Measures: 10.2 x 4.2 x 4.9 cm. No obstructing calculus or hydronephrosis identified. 2.2 x 2.3 x 2.6 cm anechoic avascular lesion consistent with a cyst. LEFT KIDNEY: Measures: 10.5 x 5.4 x 6.8 cm. No obstructing calculus or hydronephrosis identified. OTHER FINDINGS: Partially imaged echogenic hepatic echotexture. Echogenic liver may be seen in setting of hepatic parenchymal disease or fatty infiltration. IMPRESSION: 2.6 cm probable right renal cyst. Partially imaged echogenic hepatic echotexture. Echogenic liver may be seen in setting of hepatic parenchymal disease or fatty infiltration.
[2017-05-02 17:07] VITALS: RESP 20
[2017-05-02] MEDS: Oxycodone/Acetaminophen 5/325 mg Tab PO PRN (19:46)
[2017-05-02] MEDS ORDERED: POLYETHYLENE GLYCOL 3350 17 GM/Dose PACKET PO ONE (21:41)
[2017-05-02] MEDS: QUEtiapine 200 mg XR Tab PO SCH (22:57)
[2017-05-03 06:36] LABS: BASO % 0.2 % (0.0-2.0); HEMATOCRIT 37.8 % (34.0-47.0); LYMPH # 1.1 K/uL (1.0-4.3); LYMPH % 12.3 % (20.0-40.0); MEAN CELL VOLUME 83.5 fL (81.0-99.0); MEAN CORPUSCULAR HEMOGLOBIN 28.6 pg (27.0-31.0); MEAN CORPUSCULAR HGB CONC 34.3 g/dL (33.0-37.0); MEAN PLATELET VOLUME 7.6 fL (7.2-11.7); MONO # 0.4 K/uL (0.0-0.8); MONO % 4.7 % (0.0-10.0); RED CELL DISTRIBUTION WIDTH 12.9 % (11.5-14.5)
[2017-05-03 07:05] LABS: CHLORIDE 99 mmol/L (98-107)
[2017-05-03 07:06] LABS: POTASSIUM 4.2 mmol/L (3.6-5.2); SODIUM 137 mmol/L (132-148)
[2017-05-03 07:08] LABS: ALB/GLOB RATIO 1.2 (1.0-2.1); ALKALINE PHOSPHATASE 114 U/L (38-126); AST/SGOT 29 U/L (14-36); BILIRUBIN,TOTAL 0.6 mg/dL (0.2-1.3); CARBON DIOXIDE 25 mmol/L (22-30); GFR AFRICAN-AMERICAN > 60; TOTAL PROTEIN 7.5 g/dL (6.3-8.3)
[2017-05-03 07:09] LABS: ALT/SGPT 40 U/L (9-52); BLOOD UREA NITROGEN 11 mg/dL (7-17); CALCIUM 9.5 mg/dl (8.6-10.4); GLUCOSE,RANDOM 225 mg/dL (65-105)
[2017-05-03] MEDS: (Novolog) Insulin Aspart, Recombinant 100 u/ml 10 ml vial SC SCH ×3 (08:29→23:10)
--- NOTE | 2017-05-03 09:15 | CP.PCM.PN ---
Subjective - Date & Time of Evaluation Date of Evaluation: 05/03/17 Time of Evaluation: 09:15 - Subjective Subjective: Medicine Note for Dr. Arredondo's Service Pt seen and examined at bedside. She was experiencing chest pain overnight that she describes as "tightness". She was given SL nitro x2 and states that this resolved her pain. She was otherwise well and does not report any other acute complaints. As per nursing staff there were no other acute events overnight, other than the aforementioned. Dr. Rowe completed a diagnostic cardia cath on this patient yesterday and identified 99% occlusion of L circumflex artery. [place] [facility]. Objective - Vital Signs/Intake and Output Vital Signs (last 24 hours): Temp Pulse Resp BP Pulse Ox 98.1 F 105 H 20 129/79 97 05/03/17 07:50 05/03/17 07:50 05/03/17 07:50 05/03/17 07:50 05/03/17 07:50 Intake and Output: 05/03/17 05/03/17 06:59 18:59 Intake Total 2160 Output Total 700 Balance 1460 - Medications Medications: Current Medications Clonazepam (Klonopin) 0.5 mg PO TID [facility] Last Admin: 05/02/17 18:13 Dose: 0.5 mg Clopidogrel Bisulfate (Plavix) 75 mg PO DAILY [facility] Last Admin: 05/02/17 14:29 Dose: 75 mg Famotidine (Pepcid) 20 mg PO DAILY [facility] Last Admin: 05/02/17 14:29 Dose: 20 mg Gabapentin (Neurontin) 1,200 mg PO BID [facility] Last Admin: 05/02/17 18:01 Dose: 1,200 mg Heparin Sodium/Sodium Chloride (Heparin 23371 Units/250ml 1/2 Normal Saline) 25 ,000 units in 250 mls @ 8.981 mls/hr IV .Q24H PRN; Protocol; 12 UNITS/KG/HR PRN Reason: PROTOCOL Last Titration: 05/01/17 10:21 Dose: 12 units/kg/hr, 8.981 mls/hr Insulin Aspart (Novolog) 0 unit SC ACHS [facility] PRN Reason: Protocol Last Admin: 05/03/17 08:29 Dose: Not Given Metoprolol Tartrate (Lopressor) 50 mg PO BID [facility] Last Admin: 05/02/17 18:13 Dose: 50 mg Nitroglycerin (Nitrostat Sl Tab) 0.4 mg SL Q5M PRN PRN Reason: chest pain Last Admin: 05/02/17 21:13 Dose: 0.4 mg Oxycodone/Acetaminophen (Percocet 5/325 Mg Tab) 1 tab PO Q4H PRN PRN Reason: Pain, moderate (4-7) Stop: 05/05/17 18:13 Last Admin: 05/02/17 19:46 Dose: 1 tab Quetiapine Fumarate (Seroquel Xr) 600 mg PO HS [facility] Last Admin: 05/02/17 22:57 Dose: 600 mg Sitagliptin Phosphate (Januvia) 100 mg PO DAILY [facility] Last Admin: 05/02/17 09:22 Dose: 100 mg - Labs Labs: 05/03/17 06:07 05/03/17 06:07 PT 12.4 SECONDS (9.7-12.2) H 05/02/17 07:18 INR 1.1 05/02/17 07:18 APTT 36 SECONDS (21-34) H D 05/02/17 07:18 - Constitutional Appears: No Acute Distress - Head Exam Head Exam: ATRAUMATIC, NORMAL INSPECTION - Eye Exam Eye Exam: EOMI, Normal appearance - ENT Exam ENT Exam: Mucous Membranes Moist - Respiratory Exam Respiratory Exam: Clear to Ausculation Bilateral, NORMAL BREATHING PATTERN - Cardiovascular Exam Cardiovascular Exam: REGULAR RHYTHM. absent: Rubs, Murmur - GI/Abdominal Exam GI & Abdominal Exam: Soft. absent: Distended, Tenderness - Neurological Exam Neurological Exam: Alert, Awake, Oriented x3 - Skin Skin Exam: Dry, Warm Assessment and Plan - Assessment and Plan (Free Text) Plan: NSTEMI -05/02- Pt continued with episodic chest pain overnight, responsive to sublingual Nitrolgycerin. Repeat EKG unchanged. -05/[address] Rowe: Left circumflex 99% occluded. EF 50%. NPO, continue medications. [place] [facility] [place] -Pt awaiting transfer [place] [facility] [place]. Follow up results. -Positive troponin 0.107-> 0.192-> 0.192 -EKG: sinus tachycardia at 102 -Echo: Diastolic disease; EF 55-60% -CXR: no active disease -Plavix 75mg PO daily -Allergy to ASA -Heparin held for procedure- PCI today w/ Dr. Rowe -Nitroglycerin 0.4mg Q5m PRN chest pain -Oxycodone/Acetaminophen 5/325mg 1 tab PO Q4H PRN moderate pain -O2 via NC -Lipid panel Total cholesterol: 160 LDL: 100 HDL: 34 Triglycerides: 276 Flank Pain -05/01 Renal US: 2.6 cm R renal cyst. (see full report) -05/01 Bladder US: Unremarkable sonogram of the bladder. (see full report) -05/01 UA: Negative -05/01 urine cx: gram positive cocci HTN -metoprolol 50mg PO BID DM with neuropathy -A1c: 8.6 -ISS -accucheck ACHS -Januvia 100mg (pt takes Onglyza 5mg po, pharmacy confirmed) -Gabapentin 1200mg PO BID Bipolar disorder with anxiety -Seroquel 600mg HS -Clonazepam 0.5mg PO TID Prophylaxis -Heparin held today for PCI -Pepcid 20mg PO daily Case discussed with Dr. Arredondo. All management as per Dr. Arredondo.
--- NOTE | 2017-05-03 14:52 | CP.PCM.PN ---
Subjective - Date & Time of Evaluation Date of Evaluation: 05/03/17 Time of Evaluation: 14:49 - Subjective Subjective: S/P successful BMS (Bare Metal Stent) of LAD Patiet is allergic to Aspirin Recommend Plavix, Statin and B blockers for life F/U Cardiology and Internal medicine in 1 month Objective - Vital Signs/Intake and Output Vital Signs (last 24 hours): Temp Pulse Resp BP Pulse Ox 98.1 F 103 H 20 142/83 97 05/03/17 07:50 05/03/17 09:35 05/03/17 07:50 05/03/17 09:35 05/03/17 07:50 Intake and Output: 05/03/17 05/03/17 06:59 18:59 Intake Total 2160 Output Total 700 Balance 1460 - Medications Medications: Current Medications Clonazepam (Klonopin) 0.5 mg PO TID [facility] Last Admin: 05/03/17 14:17 Dose: Not Given Clopidogrel Bisulfate (Plavix) 75 mg PO DAILY [facility] Last Admin: 05/03/17 09:34 Dose: 75 mg Enoxaparin Sodium (Lovenox) 40 mg SC DAILY [facility] Famotidine (Pepcid) 20 mg PO DAILY [facility] Last Admin: 05/03/17 09:35 Dose: 20 mg Gabapentin (Neurontin) 1,200 mg PO BID [facility] Last Admin: 05/03/17 09:34 Dose: 1,200 mg Sodium Chloride (Sodium Chloride 0.9%) 1,000 mls @ 100 mls/hr IV .Q10H [facility] Insulin Aspart (Novolog) 0 unit SC ACHS [facility] PRN Reason: Protocol Last Admin: 05/03/17 12:48 Dose: Not Given Metoprolol Tartrate (Lopressor) 50 mg PO BID [facility] Last Admin: 05/03/17 09:35 Dose: 50 mg Nitroglycerin (Nitrostat Sl Tab) 0.4 mg SL Q5M PRN PRN Reason: chest pain Last Admin: 05/02/17 21:13 Dose: 0.4 mg Oxycodone/Acetaminophen (Percocet 5/325 Mg Tab) 1 tab PO Q4H PRN PRN Reason: Pain, moderate (4-7) Stop: 05/05/17 18:13 Last Admin: 05/02/17 19:46 Dose: 1 tab Quetiapine Fumarate (Seroquel Xr) 600 mg PO HS [facility] Last Admin: 05/02/17 22:57 Dose: 600 mg Sitagliptin Phosphate (Januvia) 100 mg PO DAILY [facility] Last Admin: 05/03/17 09:35 Dose: Not Given - Labs Labs: 05/03/17 06:07 05/03/17 06:07 PT 12.4 SECONDS (9.7-12.2) H 05/02/17 07:18 INR 1.1 05/02/17 07:18 APTT 36 SECONDS (21-34) H D 05/02/17 07:18
[2017-05-03] MEDS: Sodium Chloride 0.9% 1,000 ML IV SCH (16:00)
[2017-05-04] MEDS: QUEtiapine 200 mg XR Tab PO SCH (01:24)
[2017-05-04] MEDS: Oxycodone/Acetaminophen 5/325 mg Tab PO PRN (01:25)
[2017-05-04] MEDS: (Novolog) Insulin Aspart, Recombinant 100 u/ml 10 ml vial SC SCH ×2 (08:25→12:09)
[2017-05-04 09:06] VITALS: TEMP 98; O2SAT 97
[2017-05-04 09:51] VITALS: BP 145/80
[2017-05-04] MEDS: Sodium Chloride 0.9% 1,000 ML IV SCH ×2 (09:52)
[2017-05-04] MEDS ORDERED: Enoxaparin 40 mg Syringe SC SCH (10:00)
--- NOTE | 2017-05-04 11:03 | CP.PCM.PN ---
Subjective - Date & Time of Evaluation Date of Evaluation: 05/04/17 Time of Evaluation: 09:00 - Subjective Subjective: PGY3 on medicine Dr. Arredondo service: Pt seen and examined at bedside this morning. Complains of mild tenderness on right wrist where the cath access was. No other complaints. DC today with Plavix , Lopressor and Atorvastatin. Objective - Vital Signs/Intake and Output Vital Signs (last 24 hours): Temp Pulse Resp BP Pulse Ox 98 F 102 H 20 145/80 97 05/04/17 07:00 05/04/17 09:50 05/04/17 07:00 05/04/17 09:50 05/04/17 07:00 Intake and Output: 05/04/17 05/04/17 06:59 18:59 Intake Total 820 Balance 820 - Medications Medications: Current Medications Clonazepam (Klonopin) 0.5 mg PO TID [facility] Last Admin: 05/04/17 09:51 Dose: 0.5 mg Clopidogrel Bisulfate (Plavix) 75 mg PO DAILY [facility] Last Admin: 05/04/17 09:51 Dose: 75 mg Enoxaparin Sodium (Lovenox) 40 mg SC DAILY [facility] Last Admin: 05/04/17 09:52 Dose: 40 mg Famotidine (Pepcid) 20 mg PO DAILY [facility] Last Admin: 05/04/17 09:51 Dose: 20 mg Gabapentin (Neurontin) 1,200 mg PO BID [facility] Last Admin: 05/04/17 09:52 Dose: 1,200 mg Sodium Chloride (Sodium Chloride 0.9%) 1,000 mls @ 100 mls/hr IV .Q10H [facility] Last Admin: 05/04/17 09:52 Dose: 100 mls/hr Insulin Aspart (Novolog) 0 unit SC ACHS [facility] PRN Reason: Protocol Last Admin: 05/04/17 08:25 Dose: 2 unit Metoprolol Tartrate (Lopressor) 50 mg PO BID [facility] Last Admin: 05/04/17 09:54 Dose: 50 mg Nitroglycerin (Nitrostat Sl Tab) 0.4 mg SL Q5M PRN PRN Reason: chest pain Last Admin: 05/02/17 21:13 Dose: 0.4 mg Oxycodone/Acetaminophen (Percocet 5/325 Mg Tab) 1 tab PO Q4H PRN PRN Reason: Pain, moderate (4-7) Stop: 05/05/17 18:13 Last Admin: 05/04/17 01:25 Dose: 1 tab Quetiapine Fumarate (Seroquel Xr) 600 mg PO HS [facility] Last Admin: 05/04/17 01:24 Dose: 600 mg Sitagliptin Phosphate (Januvia) 100 mg PO DAILY [facility] Last Admin: 05/04/17 09:51 Dose: 100 mg - Labs Labs: 05/03/17 06:07 05/03/17 06:07 PT 12.4 SECONDS (9.7-12.2) H 05/02/17 07:18 INR 1.1 05/02/17 07:18 APTT 36 SECONDS (21-34) H D 05/02/17 07:18 - Constitutional Appears: Non-toxic, No Acute Distress - Head Exam Head Exam: NORMOCEPHALIC - Eye Exam Eye Exam: Normal appearance - Respiratory Exam Respiratory Exam: Clear to Ausculation Bilateral, NORMAL BREATHING PATTERN. absent: Wheezes - Cardiovascular Exam Cardiovascular Exam: REGULAR RHYTHM, +S1, +S2. absent: Gallop, Rubs - GI/Abdominal Exam GI & Abdominal Exam: Soft, Normal Bowel Sounds - Extremities Exam Additional comments: right arm dressing c/d/i - Neurological Exam Neurological Exam: Alert, Awake, Oriented x3 Assessment and Plan - Assessment and Plan (Free Text) Assessment: NSTEMI 05/04: S/P bare metal stent placement in LAD yesterday. DC today with Plavix 75mg PO daily, Atorvastatin 20mg PO daily and Lopressor 50mg PO q12H as per Dr. Rowe. Patient instructed to follow up with Dr. Arredondo within 1 week of discharge and [address] Rowe. -05/02- Pt continued with episodic chest pain overnight, responsive to sublingual Nitrolgycerin. Repeat EKG unchanged. -05/[address] Rowe: Left circumflex 99% occluded. EF 50%. NPO, continue medications. PCI at [facility] today (05/03). -Pt awaiting transfer to [facility] [place] for PCI today. Follow up results. -Positive troponin 0.107-> 0.192-> 0.192 -EKG: sinus tachycardia at 102 -Echo: Diastolic disease; EF 55-60% -CXR: no active disease -Plavix 75mg PO daily -Allergy to ASA -Heparin held for procedure- PCI today w/ Dr. Rowe -Nitroglycerin 0.4mg Q5m PRN chest pain -Oxycodone/Acetaminophen 5/325mg 1 tab PO Q4H PRN moderate pain -O2 via NC -Lipid panel Total cholesterol: 160 LDL: 100 HDL: 34 Triglycerides: 276 Flank Pain -05/01 Renal US: 2.6 cm R renal cyst. (see full report) -05/01 Bladder US: Unremarkable sonogram of the bladder. (see full report) -05/01 UA: Negative -05/01 urine cx: gram positive cocci HTN -metoprolol 50mg PO BID DM with neuropathy -A1c: 8.6 -ISS -accucheck ACHS -Januvia 100mg (pt takes Onglyza 5mg po, pharmacy confirmed) -Gabapentin 1200mg PO BID Bipolar disorder with anxiety -Seroquel 600mg HS -Clonazepam 0.5mg PO TID Prophylaxis -Heparin held today for PCI -Pepcid 20mg PO daily Case discussed with Dr. Arredondo. All management as per Dr. Arredondo.
[2017-05-04 12:49] VITALS: PULSE 76
--- NOTE | 2017-05-04 17:10 | CP.PCM.PN ---
Subjective - Date & Time of Evaluation Date of Evaluation: 05/04/17 Time of Evaluation: 09:10 - Subjective Subjective: Patient seen and evaluated Denies chest pain and dyspnea Objective - Vital Signs/Intake and Output Vital Signs (last 24 hours): Temp Pulse Resp BP Pulse Ox 98 F 76 20 145/80 97 05/04/17 07:00 05/04/17 11:56 05/04/17 07:00 05/04/17 09:50 05/04/17 07:00 Intake and Output: 05/04/17 05/04/17 06:59 18:59 Intake Total 820 1000 Balance 820 1000 - Labs Labs: 05/03/17 06:07 05/03/17 06:07 PT 12.4 SECONDS (9.7-12.2) H 05/02/17 07:18 INR 1.1 05/02/17 07:18 APTT 36 SECONDS (21-34) H D 05/02/17 07:18 - Constitutional Appears: Well - Head Exam Head Exam: ATRAUMATIC, NORMAL INSPECTION - Eye Exam Eye Exam: EOMI, PERRL Pupil Exam: NORMAL ACCOMODATION - ENT Exam ENT Exam: Mucous Membranes Moist - Neck Exam Neck Exam: Full ROM - Respiratory Exam Respiratory Exam: Clear to Ausculation Bilateral, NORMAL BREATHING PATTERN - Cardiovascular Exam Cardiovascular Exam: REGULAR RHYTHM, +S1, +S2 - GI/Abdominal Exam GI & Abdominal Exam: Soft, Normal Bowel Sounds - Neurological Exam Neurological Exam: Alert, Oriented x3 - Psychiatric Exam Psychiatric exam: Normal Mood Assessment and Plan - Assessment and Plan (Free Text) Assessment: 1. CAD s/p L Cx stent (BMS) Patient allergic to ASA Continue Plavix for life time 2. HTN: B blockers 3. Hyperlipidemia: Statins F/U with my office in 2 -4 weeks
--- NOTE | 2017-05-10 20:02 | CARD ---
APPROVED REPORT EKG Measurement Heart [id number] <Conclusion> Sinus tachycardia ST & T wave abnormality, consider anterior ischemia Prolonged QT Abnormal ECG
--- NOTE | 2017-05-11 14:30 | CARD ---
APPROVED REPORT EKG Measurement Heart [id number] <Conclusion> Normal sinus rhythm Possible Inferior infarct, age undetermined Prolonged QT Abnormal ECG
--- NOTE | 2017-05-12 07:46 | CARDCATH ---
PROCEDURE DATE: 05/02/2017 PROCEDURES: 1. Left heart catheterization. 2. Coronary angiogram. REFERRING PHYSICIAN: Dr. Darwin Arredondo. PERFORMING PHYSICIAN: Dr. Evangelist Rowe. CLINICAL INDICATIONS: 1. Chest pain. 2. Non-ST elevated myocardial infarction. 3. Coronary artery disease. 4. Hypertension. 5. Hyperlipidemia. PROCEDURE: After informed consent, the patient was prepped and draped in the usual sterile fashion. A 2% lidocaine was given in the right groin for local anesthesia. Using micropuncture technique, a 6-Persian sheath was introduced into the right common femoral artery. Using the usual diagnostic catheter, left heart catheterization and coronary angiogram was performed. The patient tolerated the procedure well. FINDINGS: 1. Left main coronary artery is patent. 2. LAD and diagonal branches are patent. 3. Left circumflex has 99% mid concentric stenosis. Proximal and distal circumplex coronary arteries are patent. 4. Right coronary artery is dominant and patent. 5. LV ejection fraction is approximately 65%. No wall motion abnormalities noted. EDP is 18. No gradient across the aortic valve. IMPRESSION: 1. Single vessel coronary artery disease. 2. Normal LV systolic function. 3. We will consult the patient to left circumflex coronary artery. Evangelist Rowe MD
--- NOTE | 2017-05-13 11:06 | DS ---
HISTORY OF PRESENT ILLNESS: The patient is admitted to the hospital with chief complaint of generalized weakness, fatigue, tiredness. The patient came to the ER, advised admission. Treated with bedrest, supportive care, IV fluid. The patient showed improvement and discharged to be followed as outpatient. Darwin Arredondo MD
== END 2017-05-04 13:00 | disposition home or self-care (01) | DRG 853 ==
LOC: C.ER 20:31 → C.9E 22:38 → C.6T 23:06
PROVIDERS: ADMIT Internal Medicine Pulmonary Disease; ATTEND Internal Medicine Pulmonary Disease
PROC: 4A023N7 Measurement of Cardiac Sampling and Pressure, Left Heart, Percutaneous Approach (ICD-10-PCS; principal; 2017-05-02)
PROC: B2151ZZ Fluoroscopy of Left Heart using Low Osmolar Contrast (ICD-10-PCS; 2017-05-02)
PROC: B2111ZZ Fluoroscopy of Multiple Coronary Arteries using Low Osmolar Contrast (ICD-10-PCS; 2017-05-02)
PROC: 027034Z Dilation of Coronary Artery, One Artery with Drug-eluting Intraluminal Device, Percutaneous Approach (ICD-10-PCS; 2017-05-03)
DX: I21.4 Non-ST elevation (NSTEMI) myocardial infarction (principal); I25.10 Atherosclerotic heart disease of native coronary artery without angina pectoris; E11.40 Type 2 diabetes mellitus with diabetic neuropathy, unspecified; I10 Essential (primary) hypertension; J45.909 Unspecified asthma, uncomplicated; N28.1 Cyst of kidney, acquired; F20.9 Schizophrenia, unspecified; F31.9 Bipolar disorder, unspecified; F41.9 Anxiety disorder, unspecified; E66.9 Obesity, unspecified; E78.5 Hyperlipidemia, unspecified; Z82.49 Family history of ischemic heart disease and other diseases of the circulatory system; Z88.6 Allergy status to analgesic agent; Z90.49 Acquired absence of other specified parts of digestive tract; Z87.891 Personal history of nicotine dependence

== ENCOUNTER 2017-06-23 09:45 | Observation (INO) | payer MEDICARE, MEDICAID ==
[2017-06-23 09:54] VITALS: RESP 20
--- NOTE | 2017-06-23 10:08 | C.PDOC ---
History Of Present Illness 66 year old female, with history of CAD/AK, HTN, Hyperlipidemia, Obesity and HO CATH 04/2017 S/P [place], presents to the ED for evaluation of recurrent chest pain and shortness of breath which began this morning at around 0700. Patient is s/p cardiac catheterization with stent placement on April 2017. Patient notes this is the first episode of chest pain that she's had since the procedure. She admits that she used to have similar episodes of chest pain prior to undergoing the procedure. Patient notes the onset of her symptoms while at rest and that pain was relieved after taking Nitroglycerin. Patient took her Plavix this morning as prescribed. She notes she is currently asymptomatic denies nausea, vomiting, extremity numbness/weakness. Time Seen by Provider: 06/23/17 09:49 Chief Complaint (Nursing): Chest Pain History Per: Patient History/Exam Limitations: no limitations Onset/Duration Of Symptoms: Hrs Current Symptoms Are (Timing): Better Quality: "Pain" Associated Symptoms: denies: Nausea Nitro Therapy Administered: Per EMS, Per Own Supply Additional History Per: Patient Past Medical History Reviewed: Historical Data, Nursing Documentation, Vital Signs Vital Signs: Last Vital Signs Temp 98.1 F 06/23/17 09:49 Pulse 84 06/23/17 09:49 Resp 20 06/23/17 09:49 BP 114/65 06/23/17 09:49 Pulse Ox 94 L 06/23/17 11:30 - Medical History PMH: Arthritis, Asthma, Bipolar Disorder, Diabetes, Gastritis, HTN, Schizophrenia Denies: Anemia, Anxiety, Atrial Fibrillation, Bronchitis, Cardia Arrhythmia, CHF, COPD, Crohn's Disease, Dementia, Depression, Diverticulitis, Emphysema, Fractures, Gall Bladder Disease, Hypercholesterolemia, Hyperthyroidism, Hypothyroidism, Kidney Stones, Migraine, Mitral Valve Prolapse, Multiple Sclerosis, Osteoporosis, Pancreatitis, Paranoia, Parkinson's Disease, Peripheral Edema, Pneumonia, Post Traumatic Stress Disorder, Pulmonary Embolism , Chronic Kidney Disease, Rheumatoid Arthritis, Seizures, Sickle Cell Disease, Sexually Transmitted Disease, Sleep Apnea, TIA Surgical History: Cholecystectomy Denies: Appendectomy, CABG, Carotid Endarterectomy, Coronary Stent, Pacemaker , Tonsillectomy - [facility] Procedures DILATION OF 1 COR ART WITH DRUG-ELUT INTRA, PERC APPROACH (04/28/17) FLUOROSCOPY OF LEFT HEART USING LOW OSMOLAR CONTRAST (04/28/17) FLUOROSCOPY OF MULT COR ART USING L OSM CONTRAST (04/28/17) MEASURE OF CARDIAC SAMPL & PRESSURE, L HEART, PERC APPROACH (04/28/17) Family History: States: Unknown Family Hx - Social History Hx Tobacco Use: No Hx Alcohol Use: No Hx Substance Use: No - Immunization History Hx Tetanus Toxoid Vaccination: No Hx Influenza Vaccination: Yes (06/18/2017) Hx Pneumococcal Vaccination: Yes (06/18/2017) Review Of Systems Cardiovascular: Positive for: Chest Pain Respiratory: Positive for: Shortness of Breath Gastrointestinal: Negative for: Nausea, Vomiting Neurological: Negative for: Weakness, Numbness Physical Exam - Physical Exam Appears: Non-toxic, No Acute Distress Skin: Normal Color, Warm, Dry Head: Atraumatic, Normacephalic Eye(s): bilateral: Normal Inspection Oral Mucosa: Moist Neck: Supple Chest: Symmetrical, No Deformity, No Tenderness Cardiovascular: Rhythm Regular, No Murmur Respiratory: Normal Breath Sounds, No Rales, No Rhonchi, No Wheezing Extremity: Normal ROM, Capillary Refill (less than 2 seconds ) Neurological/Psych: Oriented x3, Normal Speech, Normal Cognition Gait: Steady ED Course And Treatment - Laboratory Results Result Diagrams: 06/23/17 10:42 06/23/17 10:42 ECG: Interpreted By Me ECG Rhythm: Sinus Rhythm ECG Interpretation: Abnormal Interpretation Of ECG: QTC 499 Rate From EC O2 Sat by Pulse Oximetry: 94 - Radiology CXR: Interpreted by Me, Viewed By Me, Read By Radiologist CXR Interpretation: Yes: Other (negative ) Progress Note: EKG and CXR ordered and reviewed. Progress - Re-Evaluation Re-evaluation Note: 06/23/17 11:24 REMAINS ASYMPT D/W DR HACKETT WILL ADMIT - Data Reviewed Data Reviewed: Lab, Diagnostic imaging, EKG, Old records Disposition Counseled Patient/Family Regarding: Studies Performed, Diagnosis - Disposition Disposition: HOSPITALIZED Disposition Time: 11:24 Condition: STABLE Forms: [facility] (Maltese) - Clinical Impression Clinical Impression: Chest pain - Scribe Statement The provider has reviewed the documentation as recorded by the Scribe (Daniela Membreno) Provider Attestation: All medical record entries made by the Scribe were at my direction and personally dictated by me. I have reviewed the chart and agree that the record accurately reflects my personal performance of the history, physical exam, medical decision making, and the department course for this patient. I have also personally directed, reviewed, and agree with the discharge instructions and disposition. Decision To Admit - Pt Status Changed To: Hospital Disposition Of: Observation - . Bed Request Type: Telemetry Admitting Physician: Dariwn Hackett Patient Diagnosis: Chest pain
--- NOTE | 2017-06-23 10:41 | RAD ---
PROCEDURE: CHEST RADIOGRAPH, 1 VIEW HISTORY: chest pain COMPARISON: Portable chest 04/28/2017. FINDINGS: LUNGS: No infiltrate bilaterally. PLEURA: No pneumothorax or pleural fluid seen. CARDIOVASCULAR: Cardiac silhouette appears somewhat prominent however this could be on the basis of technical magnification given frontal technique. The overall mediastinal silhouette appears stable. No pulmonary vascular derangement. OSSEOUS STRUCTURES: No significant abnormalities. VISUALIZED UPPER ABDOMEN: Normal. OTHER FINDINGS: None. IMPRESSION: No definite acute infiltrate or pleural effusion. Cardiac silhouette appears somewhat prominent which may be a function of frontal technique. Clinically correlate. No pulmonary vascular derangement.
[2017-06-23 10:49] LABS: BASO % 0.8 % (0.0-2.0); EOS # 0.2 K/uL (0.0-0.7); EOS % 3.1 % (0.0-4.0); HEMATOCRIT 34.4 % (34.0-47.0); LYMPH # 1.7 K/uL (1.0-4.3); LYMPH % 31.5 % (20.0-40.0); MEAN CELL VOLUME 84.6 fL (81.0-99.0); MEAN CORPUSCULAR HEMOGLOBIN 29.1 pg (27.0-31.0); MEAN CORPUSCULAR HGB CONC 34.4 g/dL (33.0-37.0); MEAN PLATELET VOLUME 7.5 fL (7.2-11.7); MONO # 0.4 K/uL (0.0-0.8); MONO % 7.4 % (0.0-10.0); NRBC % 0.1 % (0.0-2.0); RED CELL DISTRIBUTION WIDTH 12.9 % (11.5-14.5); WHITE BLOOD COUNT 5.5 K/uL (4.8-10.8)
[2017-06-23 10:56] LABS: INR 1.1
[2017-06-23 10:57] LABS: CHLORIDE 102 mmol/L (98-107); SODIUM 135 mmol/L (132-148)
[2017-06-23 10:58] LABS: POTASSIUM 4.1 mmol/L (3.6-5.2)
[2017-06-23 11:00] LABS: ALB/GLOB RATIO 1.1 (1.0-2.1); ALKALINE PHOSPHATASE 103 U/L (38-126); ALT/SGPT 33 U/L (9-52); AST/SGOT 23 U/L (14-36); BILIRUBIN,TOTAL 0.5 mg/dL (0.2-1.3); BLOOD UREA NITROGEN 11 mg/dL (7-17); CARBON DIOXIDE 23 mmol/L (22-30); GFR AFRICAN-AMERICAN > 60; GLUCOSE,RANDOM 175 mg/dL (65-105); TOTAL PROTEIN 7.1 g/dL (6.3-8.3)
[2017-06-23 11:01] LABS: CALCIUM 8.8 mg/dl (8.6-10.4)
[2017-06-23] MEDS ORDERED: Albuterol-Ipratrop 3 mg / 0.5 (3 ml) UD INH PRN (15:19)
[2017-06-23] MEDS ORDERED: Pantoprazole 20 mg EC Tab PO STA (15:19)
[2017-06-23] MEDS ORDERED: Pantoprazole 20 mg EC Tab PO SCH (15:30)
--- NOTE | 2017-06-23 16:28 | CP.PCM.PN ---
Subjective - Date & Time of Evaluation Date of Evaluation: 06/23/17 Time of Evaluation: 15:00 - Subjective Subjective: CC: Chest Pain HPI: Patient is a 66 year old female with a history of HTN, DM, hyperlipidemia , CAD, anxiety, is here because she started having sudden left sided chest pain that was pressure like non radiating, she also complained of associated diaphoresis, nausea, and headache. She said the pain started when she was mopping the floor and ended when the medics in the ambulance gave her some medication through the IV though she does not know what the medication is. She had a stent placed by Dr. Rowe back in April and has been taking Aspirin ever since then. She does not take Aspirin due to an allergy to aspirin. She has not seen Dr. Rowe since her hospitalization. She says she has anxiety for which she takes multiple medication and also chronic constipation. She was feeling very anxious as well while she had the chest pain. She says the pain has resolved since getting the medication through the IV by the paramedics and has not returned. PMH: see above PSH: denies FH: Denies SH: denies smoking, etoh use, or drug use. Objective - Vital Signs/Intake and Output Vital Signs (last 24 hours): Temp Pulse Resp BP Pulse Ox 98.1 F 76 20 134/78 96 06/23/17 14:24 06/23/17 14:24 06/23/17 14:24 06/23/17 14:24 06/23/17 14:24 - Medications Medications: Current Medications Albuterol/Ipratropium (Duoneb 3 Mg/0.5 Mg (3 Ml) Ud) 3 ml INH RQ4 PRN PRN Reason: Wheezing Budesonide (Pulmicort Respules) 0.5 mg INH RQ12 [facility] Clonazepam (Klonopin) 0.5 mg PO TID PRN PRN Reason: Anxiety Clopidogrel Bisulfate (Plavix) 75 mg PO DAILY [facility] Divalproex Sodium (Depakote Er) 1,500 mg PO HS [facility] Gabapentin (Neurontin) 600 mg PO BID [facility] Heparin Sodium (Porcine) (Heparin) 5,000 units SC Q8 [facility] Insulin Human Regular (Novolin R) 0 unit SC ACHS [facility] PRN Reason: Protocol Magnesium Hydroxide (Milk Of Magnesia) 30 ml PO DAILY [facility] Metformin HCl (Glucophage) 1,000 mg PO BID [facility] Metoprolol Tartrate (Lopressor) 100 mg PO BID [facility] Nitroglycerin (Nitrostat Sl Tab) 0.4 mg SL Q5M PRN PRN Reason: Other Pantoprazole Sodium (Protonix Ec Tab) 20 mg PO DAILY [facility] Quetiapine Fumarate (Seroquel) 600 mg PO HS [facility] Rosuvastatin Calcium (Crestor) 10 mg PO HS [facility] Sitagliptin Phosphate (Januvia) 50 mg PO DAILY [facility] - Labs Labs: 06/23/17 10:42 06/23/17 10:42 PT 12.6 SECONDS (9.7-12.2) H 06/23/17 10:42 INR 1.1 06/23/17 10:42 APTT 33 SECONDS (21-34) 06/23/17 10:42 - Constitutional Appears: Non-toxic, No Acute Distress - Eye Exam Eye Exam: Normal appearance, PERRL. absent: Nystagmus, Scleral icterus Pupil Exam: NORMAL ACCOMODATION - Respiratory Exam Respiratory Exam: Clear to Ausculation Bilateral. absent: Rales, Rhonchi, Wheezes - Cardiovascular Exam Cardiovascular Exam: REGULAR RHYTHM, RRR, +S1, +S2. absent: Gallop, Rubs - GI/Abdominal Exam GI & Abdominal Exam: Soft, Normal Bowel Sounds. absent: Distended, Guarding, Tenderness - Extremities Exam Extremities Exam: Normal Inspection. absent: Pedal Edema - Back Exam Back Exam: NORMAL INSPECTION. absent: CVA tenderness (L), CVA tenderness (R) - Neurological Exam Neurological Exam: Oriented x3 - Psychiatric Exam Psychiatric exam: Normal Affect, Normal Mood - Skin Skin Exam: Normal Color, Warm. absent: Pallor Assessment and Plan (1) Chest pain Assessment & Plan: EKG and labs reviewed EKG showed NSR with prolonged QT, which could be from her psych medication. Dr. Rowe consulted Admitted to tele/obs floor. Cardiac enzymes q8h x2, first set were negative Echo from April 2017 was also reviewed. continue with her plavix, and monitor her tele floor Follow up morning cbc, cmp, mag, phos, lipid panel, hbg a1c, tsh/free t4 Nitro as needed for chest pain. Status: Acute (2) CAD (coronary artery disease) Assessment & Plan: stent placed in April continue with Plavix 75mg, Dr. Rowe consulted. Lopressor 100mg bid Status: Acute (3) Diabetes mellitus Assessment & Plan: accu checks, sliding scale, hypoglycemia protocol prn, home Metformin and Januvia Hbg a1C Status: Chronic (4) Hyperlipidemia Assessment & Plan: Crestor 40mg, lipid panel Status: Chronic (5) Hypertension Assessment & Plan: Lopressor 100mg bid Status: Chronic (6) Asthma Assessment & Plan: Symbicort INH Q12H home medication and also duoneb as needed. Status: Chronic (7) Schizophrenia Assessment & Plan: Seroquel 600mg HS and also Depakoate 1500mg HS Status: Acute (8) Prophylactic measure Assessment & Plan: heparin 5000 units sc q8h, SCDS, and Pepcid 20mg Status: Acute
[2017-06-23] MEDS: (Novolin R) Insulin Human Regular 100 units/ml vial SC SCH (17:30)
[2017-06-23] MEDS: Budesonide 0.5 mg/2 ml Inhal Susp UD INH SCH (19:19)
[2017-06-23] MEDS ORDERED: Divalproex 500 mg ER Tab PO SCH (22:00)
--- NOTE | 2017-06-23 22:31 | CP.PCM.CON ---
History of Present Illness - History of Present Illness History of Present Illness: 66 F with hx of recent stent admitted with chest pain Atypocal. Tropx 2 negative EKG prolonged QT May need revision of psych medications Continue Plavix, Statins and b blockers CC: Chest Pain HPI: Patient is a 66 year old female with a history of HTN, DM, hyperlipidemia , CAD, anxiety, is here because she started having sudden left sided chest pain that was pressure like non radiating, she also complained of associated diaphoresis, nausea, and headache. She said the pain started when she was mopping the floor and ended when the medics in the ambulance gave her some medication through the IV though she does not know what the medication is. She had a stent placed by Dr. Rowe back in April and has been taking Aspirin ever since then. She does not take Aspirin due to an allergy to aspirin. She has not seen Dr. Rowe since her hospitalization. She says she has anxiety for which she takes multiple medication and also chronic constipation. She was feeling very anxious as well while she had the chest pain. She says the pain has resolved since getting the medication through the IV by the paramedics and has not returned. PMH: see above PSH: denies FH: Denies SH: denies smoking, etoh use, or drug use. Physical Examination - Constitutional Appears: Non-toxic, No Acute Distress - Eye Exam Eye Exam: Normal appearance, PERRL. absent: Nystagmus, Scleral icterus Pupil Exam: NORMAL ACCOMODATION - Respiratory Exam Respiratory Exam: Clear to Ausculation Bilateral. absent: Rales, Rhonchi, Wheezes - Cardiovascular Exam Cardiovascular Exam: REGULAR RHYTHM, RRR, +S1, +S2. absent: Gallop, Rubs - GI/Abdominal Exam GI & Abdominal Exam: Soft, Normal Bowel Sounds. absent: Distended, Guarding, Tenderness - Extremities Exam Extremities Exam: Normal Inspection. absent: Pedal Edema - Back Exam Back Exam: NORMAL INSPECTION. absent: CVA tenderness (L), CVA tenderness (R) - Neurological Exam Neurological Exam: Oriented x3 - Psychiatric Exam Psychiatric exam: Normal Affect, Normal Mood - Skin Skin Exam: Normal Color, Warm. absent: Pallor Past Patient History - Past Medical History & Family History Past Medical History?: Yes - Past Social History Smoking Status: Former Smoker - CARDIAC Hx Atrial Fibrillation: No Hx Cardia Arrhythmia: No Hx Congestive Heart Failure: No Hx Hypercholesterolemia: No Hx Hypertension: Yes Hx Mitral Valve Prolapse: No Hx Pacemaker: No Hx Peripheral Edema: No - PULMONARY Hx Asthma: Yes Hx Bronchitis: No Hx Chronic Obstructive Pulmonary Disease (COPD): No Hx Emphysema: No Hx Pneumonia: No Hx Pulmonary Embolism: No Hx Sleep Apnea: No - NEUROLOGICAL Hx Dementia: No Hx Migraine: No Hx Multiple Sclerosis: No Hx Parkinson's Disease: No Hx Seizures: No Hx Transient Ischemic Attacks (TIA): No - HEENT Hx HEENT Problems: No Hx Blind: No Hx Cataracts: No Hx Deafness: No Hx Difficulty Chewing: No Hx Epistaxis: No Hx Glaucoma: No Hx Macular Degeneration: No - RENAL Hx Chronic Kidney Disease: No Hx Kidney Stones: No - ENDOCRINE/METABOLIC Hx Hyperthyroidism: No Hx Hypothyroidism: No - HEMATOLOGICAL/ONCOLOGICAL Hx Anemia: No Hx Sickle Cell Disease: No - INTEGUMENTARY Hx Dermatological Problems: No Hx Basil Cell: No Hx [place]: No Hx Cellulitis: No Hx Eczema: No Hx Melanoma: No Hx Psoriasis: No Hx Squamous Cell: No - MUSCULOSKELETAL/RHEUMATOLOGICAL Hx Arthritis: Yes Hx Falls: No Hx Fractures: No Hx Osteoporosis: No Hx Rheumatoid Arthritis: No - GASTROINTESTINAL Hx Crohn's Disease: No Hx Diverticulitis: No Hx Gall Bladder Disease: No Hx Gastritis: Yes Hx Pancreatitis: No - GENITOURINARY/GYNECOLOGICAL Hx Sexually Transmitted Disorders: No - PSYCHIATRIC Hx Anxiety: No Hx Bipolar Disorder: Yes Hx Depression: No Hx Paranoia: No Hx Post Traumatic Stress Disorder: No Hx Schizophrenia: Yes Hx Substance Use: No - SURGICAL HISTORY Hx Appendectomy: No Hx Carotid Endarterectomy: No Hx Cholecystectomy: Yes Hx Coronary Artery Bypass Graft: No Hx Coronary Stent: No Hx Tonsillectomy: No - ANESTHESIA Hx Anesthesia: Yes Hx Anesthesia Reactions: No Meds Home Medications: Home Medication List Medication Instructions Recorded Confirmed Type Aspirin [Ecotrin] 81 mg PO DAILY #30 tablet.dr 06/25/17 Rx Clopidogrel [Plavix] 75 mg PO DAILY #30 tab 06/25/17 Rx Allergies/Adverse Reactions: Allergies Allergy/AdvReac Type Severity Reaction Status Date / Time aspirin Allergy Severe hives Verified 06/23/17 09:53 seafood Allergy Severe hives Uncoded 06/23/17 09:53 - Medications Medications: Current Medications Albuterol/Ipratropium (Duoneb 3 Mg/0.5 Mg (3 Ml) Ud) 3 ml INH RQ4 PRN PRN Reason: Wheezing Last Admin: 06/23/17 19:19 Dose: 3 ml Budesonide (Pulmicort Respules) 0.5 mg INH RQ12 [facility] Last Admin: 06/23/17 19:19 Dose: 0.5 mg Clonazepam (Klonopin) 0.5 mg PO TID PRN PRN Reason: Anxiety Clopidogrel Bisulfate (Plavix) 75 mg PO DAILY [facility] Last Admin: 06/23/17 14:30 Dose: 75 mg Divalproex Sodium (Depakote Er) 1,500 mg PO HS [facility] Last Admin: 06/23/17 21:21 Dose: Not Given Famotidine (Pepcid) 20 mg PO DAILY [facility] Gabapentin (Neurontin) 600 mg PO TID [facility] Last Admin: 06/23/17 17:53 Dose: 600 mg Heparin Sodium (Porcine) (Heparin) 5,000 units SC Q8 [facility] Last Admin: 06/23/17 21:23 Dose: 5,000 units Insulin Human Regular (Novolin R) 0 unit SC ACHS [facility] PRN Reason: Protocol Last Admin: 06/23/17 17:30 Dose: Not Given Magnesium Hydroxide (Milk Of Magnesia) 30 ml PO DAILY [facility] Metformin HCl (Glucophage) 1,000 mg PO BID [facility] Last Admin: 06/23/17 17:53 Dose: 1,000 mg Metoprolol Tartrate (Lopressor) 100 mg PO BID [facility] Last Admin: 06/23/17 17:55 Dose: 100 mg Nitroglycerin (Nitrostat Sl Tab) 0.4 mg SL Q5M PRN PRN Reason: Other Quetiapine Fumarate (Seroquel) 600 mg PO HS [facility] Last Admin: 06/23/17 21:22 Dose: 600 mg Rosuvastatin Calcium (Crestor) 10 mg PO HS [facility] Last Admin: 06/23/17 21:23 Dose: 10 mg Sitagliptin Phosphate (Januvia) 50 mg PO DAILY [facility] Last Admin: 06/23/17 14:30 Dose: 50 mg Results - Vital Signs Recent Vital Signs: Last Vital Signs Temp 98.2 F 06/23/17 15:28 Pulse 75 06/23/17 17:55 Resp 20 06/23/17 15:28 BP 160/76 H 06/23/17 17:55 Pulse Ox 96 06/23/17 15:28 - Labs Result Diagrams: 06/25/17 07:55 06/25/17 07:55 Labs: Laboratory Results - last 24 hr 06/23/17 06/23/17 06/23/17 10:42 10:42 10:42 WBC 5.5 RBC 4.07 Hgb 11.8 Hct 34.4 MCV 84.6 MCH 29.1 MCHC 34.4 RDW 12.9 Plt Count 210 MPV 7.5 Neut % (Auto) 57.2 Lymph % (Auto) 31.5 [place] % (Auto) 7.4 Eos % (Auto) 3.1 Baso % (Auto) 0.8 Neut # 3.1 Lymph # 1.7 [place] # 0.4 Eos # 0.2 Baso # 0.0 PT 12.6 H INR 1.1 APTT 33 Sodium 135 Potassium 4.1 Chloride 102 Carbon Dioxide 23 Anion Gap 15 BUN 11 Creatinine 0.7 Est GFR ( Amer) > 60 Est GFR (Non-Af Amer) > 60 POC Glucose (mg/dL) Random Glucose 175 H Calcium 8.8 Total Bilirubin 0.5 AST 23 ALT 33 Alkaline Phosphatase 103 Troponin I < 0.0120 Total Protein 7.1 Albumin 3.7 Globulin 3.3 Albumin/Globulin Ratio 1.1 06/23/17 06/23/17 06/23/17 16:47 18:09 20:58 WBC RBC Hgb Hct MCV MCH MCHC RDW Plt Count MPV Neut % (Auto) Lymph % (Auto) [place] % (Auto) Eos % (Auto) Baso % (Auto) Neut # Lymph # [place] # Eos # Baso # PT INR APTT Sodium Potassium Chloride Carbon Dioxide Anion Gap BUN Creatinine Est GFR ( Amer) Est GFR (Non-Af Amer) POC Glucose (mg/dL) 146 H 139 H Random Glucose Calcium Total Bilirubin AST ALT Alkaline Phosphatase Troponin I < 0.0120 Total Protein Albumin Globulin Albumin/Globulin Ratio Assessment & Plan - Assessment and Plan (Free Text) Assessment: (1) Chest pain Assessment & Plan: EKG and labs reviewed EKG showed NSR with prolonged QT, which could be from her psych medication. Cardiac enzymes q8h x2, first set were negative Echo from April 2017 was also reviewed. continue with her plavix, and monitor her tele floor Follow up morning cbc, cmp, mag, phos, lipid panel, hbg a1c, tsh/free t4 Nitro as needed for chest pain. Status: Acute (2) CAD (coronary artery disease) Assessment & Plan: stent placed in April continue with Plavix 75mg Lopressor 100mg bid Status: Acute (3) Diabetes mellitus Assessment & Plan: accu checks, sliding scale, hypoglycemia protocol prn, home Metformin and Januvia Hbg a1C Status: Chronic (4) Hyperlipidemia Assessment & Plan: Crestor 40mg, lipid panel Status: Chronic (5) Hypertension Assessment & Plan: Lopressor 100mg bid Status: Chronic (6) Asthma Assessment & Plan: Symbicort INH Q12H home medication and also duoneb as needed. Status: Chronic (7) Schizophrenia Assessment & Plan: Seroquel 600mg HS and also Depakoate 1500mg HS Status: Acute (8) Prophylactic measure Assessment & Plan: heparin 5000 units sc q8h, SCDS, and Pepcid 20mg Status: Acute
[2017-06-24] MEDS: Budesonide 0.5 mg/2 ml Inhal Susp UD INH SCH ×2 (07:22→19:49)
[2017-06-24 08:45] LABS: BASO % 0.7 % (0.0-2.0); EOS # 0.2 K/uL (0.0-0.7); EOS % 3.1 % (0.0-4.0); HEMATOCRIT 34.9 % (34.0-47.0); LYMPH # 1.6 K/uL (1.0-4.3); LYMPH % 28.2 % (20.0-40.0); MEAN CELL VOLUME 84.4 fL (81.0-99.0); MEAN CORPUSCULAR HEMOGLOBIN 29.2 pg (27.0-31.0); MEAN CORPUSCULAR HGB CONC 34.5 g/dL (33.0-37.0); MEAN PLATELET VOLUME 7.3 fL (7.2-11.7); MONO # 0.4 K/uL (0.0-0.8); MONO % 6.8 % (0.0-10.0); NRBC % 0.1 % (0.0-2.0); RED CELL DISTRIBUTION WIDTH 12.9 % (11.5-14.5); WHITE BLOOD COUNT 5.7 K/uL (4.8-10.8)
[2017-06-24 08:50] LABS: CHLORIDE 102 mmol/L (98-107); SODIUM 138 mmol/L (132-148)
[2017-06-24 08:51] LABS: POTASSIUM 4.1 mmol/L (3.6-5.2)
[2017-06-24 08:52] LABS: CHOLESTEROL 127 mg/dL (0-199); GFR AFRICAN-AMERICAN > 60
[2017-06-24 08:53] LABS: ALKALINE PHOSPHATASE 99 U/L (38-126); ALT/SGPT 35 U/L (9-52); AST/SGOT 20 U/L (14-36); BILIRUBIN,TOTAL 0.3 mg/dL (0.2-1.3); BLOOD UREA NITROGEN 13 mg/dL (7-17); CARBON DIOXIDE 26 mmol/L (22-30); GLUCOSE,RANDOM 117 mg/dL (65-105); PHOSPHOROUS 3.9 mg/dL (2.5-4.5); TOTAL PROTEIN 7.4 g/dL (6.3-8.3)
[2017-06-24 08:54] LABS: CALCIUM 9.2 mg/dl (8.6-10.4); MAGNESIUM 1.5 mg/dL (1.6-2.3)
--- NOTE | 2017-06-24 09:20 | CP.PCM.PN ---
Subjective - Date & Time of Evaluation Date of Evaluation: 06/24/17 Time of Evaluation: 09:06 - Subjective Subjective: PGY-[address] Arredondo's service: Pt seen and examined at bedside. Nursing reports no acute events overnight. Patient denies any additional episodes of chest pain, palpitations, SOB, overnight. She admits she is able to walk to the bathroom without discomfort. Objective - Vital Signs/Intake and Output Vital Signs (last 24 hours): Temp Pulse Resp BP Pulse Ox 98.4 F 88 20 129/72 98 06/24/17 07:00 06/24/17 07:00 06/24/17 07:00 06/24/17 07:00 06/24/17 07:00 - Medications Medications: Current Medications Albuterol/Ipratropium (Duoneb 3 Mg/0.5 Mg (3 Ml) Ud) 3 ml INH RQ4 PRN PRN Reason: Wheezing Last Admin: 06/23/17 19:19 Dose: 3 ml Budesonide (Pulmicort Respules) 0.5 mg INH RQ12 [facility] Last Admin: 06/24/17 07:22 Dose: 0.5 mg Clonazepam (Klonopin) 0.5 mg PO TID PRN PRN Reason: Anxiety Clopidogrel Bisulfate (Plavix) 75 mg PO DAILY [facility] Last Admin: 06/23/17 14:30 Dose: 75 mg Divalproex Sodium (Depakote Er) 1,500 mg PO HS [facility] Last Admin: 06/23/17 21:21 Dose: Not Given Famotidine (Pepcid) 20 mg PO DAILY [facility] Gabapentin (Neurontin) 600 mg PO TID [facility] Last Admin: 06/23/17 17:53 Dose: 600 mg Heparin Sodium (Porcine) (Heparin) 5,000 units SC Q8 [facility] Last Admin: 06/24/17 07:11 Dose: 5,000 units Insulin Human Regular (Novolin R) 0 unit SC ACHS [facility] PRN Reason: Protocol Last Admin: 06/23/17 17:30 Dose: Not Given Magnesium Hydroxide (Milk Of Magnesia) 30 ml PO DAILY [facility] Metformin HCl (Glucophage) 1,000 mg PO BID [facility] Last Admin: 06/23/17 17:53 Dose: 1,000 mg Metoprolol Tartrate (Lopressor) 100 mg PO BID [facility] Last Admin: 06/23/17 17:55 Dose: 100 mg Nitroglycerin (Nitrostat Sl Tab) 0.4 mg SL Q5M PRN PRN Reason: Other Quetiapine Fumarate (Seroquel) 600 mg PO HS [facility] Last Admin: 06/23/17 21:22 Dose: 600 mg Rosuvastatin Calcium (Crestor) 10 mg PO HS [facility] Last Admin: 06/23/17 21:23 Dose: 10 mg Sitagliptin Phosphate (Januvia) 50 mg PO DAILY [facility] Last Admin: 06/23/17 14:30 Dose: 50 mg - Labs Labs: 06/24/17 08:33 06/24/17 08:33 PT 12.6 SECONDS (9.7-12.2) H 06/23/17 10:42 INR 1.1 06/23/17 10:42 APTT 33 SECONDS (21-34) 06/23/17 10:42 - Additional Findings Additional findings: - Constitutional Appears: Non-toxic, No Acute Distress - Eye Exam Eye Exam: Normal appearance, PERRL. absent: Nystagmus, Scleral icterus Pupil Exam: NORMAL ACCOMODATION - Respiratory Exam Respiratory Exam: Clear to Ausculation Bilateral. absent: Rales, Rhonchi, Wheezes - Cardiovascular Exam Cardiovascular Exam: REGULAR RHYTHM, RRR, +S1, +S2. absent: Gallop, Rubs - GI/Abdominal Exam GI & Abdominal Exam: Soft, Normal Bowel Sounds. absent: Distended, Guarding, Tenderness - Extremities Exam Extremities Exam: Normal Inspection. absent: Pedal Edema - Back Exam Back Exam: NORMAL INSPECTION. absent: CVA tenderness (L), CVA tenderness (R) - Neurological Exam Neurological Exam: Oriented x3 - Psychiatric Exam Psychiatric exam: Normal Affect, Normal Mood - Skin Skin Exam: Normal Color, Warm. absent: Pallor Assessment and Plan - Assessment and Plan (Free Text) Plan: Chest pain Admitted to tele/obs Dr. Rwoe consulted, help appreciated - continue Plavix, Statin, Beta lakesha EKG: NSR with prolonged QT, which could be from her psych medication. JERRY negative x 3 Echo (April 2017): EF 55-60%, HTN heart disease, diastolic dysfunction continue Plavix, Statin, Beta lakesha Nitro as needed for chest pain Long QT syndrome EKG: NSR with prolonged QT, which could be from her psych medication Dr. Jacinto, Psych consult - home med Seroquel 600mg HS decreased to 400mg HS - f/u EKG in AM CAD (coronary artery disease) stent placed in April with Plavix 75mg, Dr. Rowe consulted. Lopressor 100mg bid Diabetes mellitus Mediocre BG control, A1C 8.2 accu checks, sliding scale, hypoglycemia protocol prn home Metformin and Januvia CHF, dystolic dysfunction Echo (April 2017): EF 55-60%, HTN heart disease, disastolic dysfunction Hyperlipidemia Crestor 40mg Lipid panel: Low HDL, LDL well controlled Hypertriglyceridemia Triglycerides: 221 - encouraged exercise Hypertension Well-controlled Lopressor 100mg bid Asthma Symbicort INH Q12H home medication and also duoneb as needed. Schizophrenia Dr. Jacinto consulted, help appreciated - home med Seroquel 600mg HS decreased to 400mg HS Prophylactic measure heparin 5000 units sc q8h, SCDS, and Pepcid 20mg Michael Huerta PGY-2 All medical management per Dr. Arredondo.
[2017-06-24 09:24] LABS: THYROID STIMULATING HORMONE 2.64 mIU/L (0.46-4.68)
[2017-06-24] MEDS ORDERED: Magnesium Sulfate 1 gm in D5W 1 GM/100 ML BAG IVPB ONE (10:00)
[2017-06-24] MEDS ORDERED: Omega-3-Acid Ethyl Esters 1 GM Cap PO SCH (10:00)
[2017-06-24] MEDS: (Novolin R) Insulin Human Regular 100 units/ml vial SC SCH ×4 (10:56→22:22)
[2017-06-24] MEDS: Magnesium Hydroxide Susp 30 ml UD PO SCH (10:57)
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
[2017-06-25] MEDS: Budesonide 0.5 mg/2 ml Inhal Susp UD INH SCH (07:46)
[2017-06-25] MEDS: (Novolin R) Insulin Human Regular 100 units/ml vial SC SCH ×3 (07:59→17:49)
[2017-06-25 08:12] LABS: BASO % 0.7 % (0.0-2.0); EOS # 0.1 K/uL (0.0-0.7); EOS % 1.8 % (0.0-4.0); HEMATOCRIT 35.9 % (34.0-47.0); LYMPH # 1.3 K/uL (1.0-4.3); LYMPH % 19.1 % (20.0-40.0); MEAN CELL VOLUME 84.3 fL (81.0-99.0); MEAN CORPUSCULAR HEMOGLOBIN 29.4 pg (27.0-31.0); MEAN CORPUSCULAR HGB CONC 34.8 g/dL (33.0-37.0); MEAN PLATELET VOLUME 7.5 fL (7.2-11.7); MONO # 0.4 K/uL (0.0-0.8); MONO % 5.4 % (0.0-10.0); RED CELL DISTRIBUTION WIDTH 13.1 % (11.5-14.5); WHITE BLOOD COUNT 6.8 K/uL (4.8-10.8)
[2017-06-25 08:29] LABS: CHLORIDE 100 mmol/L (98-107)
[2017-06-25 08:30] LABS: POTASSIUM 4.7 mmol/L (3.6-5.2); SODIUM 134 mmol/L (132-148)
[2017-06-25 08:32] LABS: BILIRUBIN,TOTAL 0.5 mg/dL (0.2-1.3); CARBON DIOXIDE 23 mmol/L (22-30); GFR AFRICAN-AMERICAN > 60
[2017-06-25 08:33] LABS: ALB/GLOB RATIO 1.2 (1.0-2.1); ALKALINE PHOSPHATASE 111 U/L (38-126); ALT/SGPT 32 U/L (9-52); AST/SGOT 23 U/L (14-36); BLOOD UREA NITROGEN 20 mg/dL (7-17); CALCIUM 8.9 mg/dl (8.6-10.4); GLUCOSE,RANDOM 117 mg/dL (65-105); PHOSPHOROUS 2.9 mg/dL (2.5-4.5); TOTAL PROTEIN 7.3 g/dL (6.3-8.3)
[2017-06-25 08:34] LABS: MAGNESIUM 1.9 mg/dL (1.6-2.3)
[2017-06-25 08:40] VITALS: BP 118/72; PULSE 72; TEMP 98.7; O2SAT 99
[2017-06-25] MEDS: Magnesium Hydroxide Susp 30 ml UD PO SCH (09:37)
--- NOTE | 2017-06-25 10:51 | CARD ---
APPROVED REPORT EKG Measurement Heart [id number] <Conclusion> Normal sinus rhythm Nonspecific T wave abnormality Prolonged QT Abnormal ECG
--- NOTE | 2017-06-25 18:39 | CP.PCM.PN ---
Subjective - Date & Time of Evaluation Date of Evaluation: 06/24/17 Time of Evaluation: 18:50 - Subjective Subjective: Patient seen and evaluated Denies chest pain and dyspnea Physical Examination - Constitutional Appears: Non-toxic, No Acute Distress - Eye Exam Eye Exam: Normal appearance, PERRL. absent: Nystagmus, Scleral icterus Pupil Exam: NORMAL ACCOMODATION - Respiratory Exam Respiratory Exam: Clear to Ausculation Bilateral. absent: Rales, Rhonchi, Wheezes - Cardiovascular Exam Cardiovascular Exam: REGULAR RHYTHM, RRR, +S1, +S2. absent: Gallop, Rubs - GI/Abdominal Exam GI & Abdominal Exam: Soft, Normal Bowel Sounds. absent: Distended, Guarding, Tenderness - Extremities Exam Extremities Exam: Normal Inspection. absent: Pedal Edema - Back Exam Back Exam: NORMAL INSPECTION. absent: CVA tenderness (L), CVA tenderness (R) - Neurological Exam Neurological Exam: Oriented x3 - Psychiatric Exam Psychiatric exam: Normal Affect, Normal Mood - Skin Skin Exam: Normal Color, Warm. absent: Pallor Objective - Vital Signs/Intake and Output Vital Signs (last 24 hours): Temp Pulse Resp BP Pulse Ox 98.7 F 72 20 118/72 99 06/25/17 08:39 06/25/17 08:39 06/25/17 08:39 06/25/17 08:39 06/25/17 08:39 Intake and Output: 06/25/17 06/25/17 06:59 18:59 Intake Total 320 Balance 320 - Medications Medications: Current Medications Albuterol/Ipratropium (Duoneb 3 Mg/0.5 Mg (3 Ml) Ud) 3 ml INH RQ4 PRN PRN Reason: Wheezing Last Admin: 06/23/17 19:19 Dose: 3 ml Budesonide (Pulmicort Respules) 0.5 mg INH RQ12 [facility] Last Admin: 06/25/17 07:46 Dose: 0.5 mg Clonazepam (Klonopin) 0.5 mg PO TID [facility] Last Admin: 06/25/17 17:51 Dose: 0.5 mg Clopidogrel Bisulfate (Plavix) 75 mg PO DAILY [facility] Last Admin: 06/25/17 09:38 Dose: 75 mg Dicyclomine HCl (Bentyl) 20 mg PO TID [facility] Last Admin: 06/25/17 17:53 Dose: 20 mg Famotidine (Pepcid) 20 mg PO DAILY [facility] Last Admin: 06/25/17 09:38 Dose: 20 mg Gabapentin (Neurontin) 600 mg PO TID [facility] Last Admin: 06/25/17 17:50 Dose: 600 mg Heparin Sodium (Porcine) (Heparin) 5,000 units SC Q8 [facility] Last Admin: 06/25/17 13:38 Dose: 5,000 units Insulin Human Regular (Novolin R) 0 unit SC ACHS [facility] PRN Reason: Protocol Last Admin: 06/25/17 17:49 Dose: Not Given Magnesium Hydroxide (Milk Of Magnesia) 30 ml PO DAILY [facility] Last Admin: 06/25/17 09:37 Dose: 30 ml Metformin HCl (Glucophage) 1,000 mg PO BID [facility] Last Admin: 06/25/17 17:51 Dose: 1,000 mg Metoprolol Tartrate (Lopressor) 100 mg PO BID [facility] Last Admin: 06/25/17 17:50 Dose: 100 mg Nitroglycerin (Nitrostat Sl Tab) 0.4 mg SL Q5M PRN PRN Reason: Other Quetiapine Fumarate (Seroquel) 400 mg PO HS [facility] Last Admin: 06/24/17 22:23 Dose: 400 mg Rosuvastatin Calcium (Crestor) 10 mg PO HS [facility] Last Admin: 06/24/17 22:23 Dose: 10 mg Sitagliptin Phosphate (Januvia) 50 mg PO DAILY [facility] Last Admin: 06/25/17 09:37 Dose: 50 mg - Labs Labs: 06/25/17 07:55 06/25/17 07:55 PT 12.6 SECONDS (9.7-12.2) H 06/23/17 10:42 INR 1.1 06/23/17 10:42 APTT 33 SECONDS (21-34) 06/23/17 10:42 Assessment and Plan - Assessment and Plan (Free Text) Assessment: Chest pain Admitted to tele/obs - continue Plavix, Statin, Beta lakesha EKG: NSR with prolonged QT, which could be from her psych medication. JERRY negative x 3 Echo (April 2017): EF 55-60%, HTN heart disease, diastolic dysfunction continue Plavix, Statin, Beta lakesha Nitro as needed for chest pain Long QT syndrome EKG: NSR with prolonged QT, which could be from her psych medication Dr. Jacinto, Psych consult - home med Seroquel 600mg HS decreased to 400mg HS - f/u EKG in AM CAD (coronary artery disease) stent placed in April with Plavix 75mg Lopressor 100mg bid Diabetes mellitus Mediocre BG control, A1C 8.2 accu checks, sliding scale, hypoglycemia protocol prn home Metformin and Januvia CHF, dystolic dysfunction Echo (April 2017): EF 55-60%, HTN heart disease, disastolic dysfunction Hyperlipidemia Crestor 40mg Lipid panel: Low HDL, LDL well controlled Hypertriglyceridemia Triglycerides: 221 - encouraged exercise Hypertension Well-controlled Lopressor 100mg bid Asthma Symbicort INH Q12H home medication and also duoneb as needed. Schizophrenia Dr. Jacinto consulted, help appreciated - home med Seroquel 600mg HS decreased to 400mg HS Prophylactic measure heparin 5000 units sc q8h, SCDS, and Pepcid 20mg
== END 2017-06-25 19:45 | disposition home or self-care (01) ==
LOC: C.ER 09:45 → C.9E 11:30 → C.5S 13:22 → C.6T 22:22
PROVIDERS: ADMIT Internal Medicine Pulmonary Disease; ATTEND Internal Medicine Pulmonary Disease
DX: R07.9 Chest pain, unspecified (principal); E11.9 Type 2 diabetes mellitus without complications; E78.1 Pure hyperglyceridemia; E78.5 Hyperlipidemia, unspecified; F20.9 Schizophrenia, unspecified; F31.9 Bipolar disorder, unspecified; F43.10 Post-traumatic stress disorder, unspecified; I11.0 Hypertensive heart disease with heart failure; I25.10 Atherosclerotic heart disease of native coronary artery without angina pectoris; I25.2 Old myocardial infarction; I50.9 Heart failure, unspecified; J45.909 Unspecified asthma, uncomplicated; Z79.82 Long term (current) use of aspirin; Z79.02 Long term (current) use of antithrombotics/antiplatelets; Z87.891 Personal history of nicotine dependence; Z79.899 Other long term (current) drug therapy; Z88.6 Allergy status to analgesic agent; Z90.49 Acquired absence of other specified parts of digestive tract; Z91.410 Personal history of adult physical and sexual abuse; Z91.5 Personal history of self-harm; Z95.5 Presence of coronary angioplasty implant and graft
CPT/HCPCS: 36415; 71010; 80053; 80061; 82948; 83036; 83735; 84100; 84439; 84443; 84484; 85025; 85610; 85730; 93005; 94640; 99285; G0378; J1644; J3475

== ENCOUNTER 2017-10-14 14:48 | Emergency (ER) | payer MEDICARE, MEDICAID | END 2017-10-14 16:11 | disposition left against medical advice (07) | LOC: C.ER 14:48 | DX: Z02.89 Encounter for other administrative examinations (principal); M79.602 Pain in left arm ==

== ENCOUNTER 2018-01-05 14:12 | Observation (INO) | payer MEDICARE, MEDICAID ==
[2018-01-05 15:13] LABS: BASO # 0.1 K/uL (0.0-0.2); BASO % 0.9 % (0.0-2.0); EOS # 0.2 K/uL (0.0-0.7); EOS % 3.2 % (0.0-4.0); HEMOGLOBIN 12.6 g/dL (11.0-16.0); LYMPH # 1.8 K/uL (1.0-4.3); MEAN CELL VOLUME 83.6 fL (81.0-99.0); MEAN CORPUSCULAR HEMOGLOBIN 28.3 pg (27.0-31.0); MEAN CORPUSCULAR HGB CONC 33.9 g/dL (33.0-37.0); MEAN PLATELET VOLUME 7.5 fL (7.2-11.7); MONO # 0.4 K/uL (0.0-0.8); MONO % 6.1 % (0.0-10.0); NEUT # 4.8 K/uL (1.8-7.0); NEUT % 64.8 % (50.0-75.0); RBC 4.46 Mil/uL (3.80-5.20); RED CELL DISTRIBUTION WIDTH 13.5 % (11.5-14.5); WHITE BLOOD COUNT 7.4 K/uL (4.8-10.8)
--- NOTE | 2018-01-05 15:21 | C.PDOC ---
History Of Present Illness 67 y/o female with history of HTN, DM and CAD with stents presents to ED with complaints of palpitations since yesterday and sob with exertion. Patient saw Dr. Rowe today had EKG and Echo, was sent to ED by Dr. Rowe for further evaluation. Patient denies cough, nausea, vomiting, leg swelling, back pain, weakness, numbness, tingling. Time Seen by Provider: 01/05/18 14:50 Chief Complaint (Nursing): Chest Pain History Per: Patient History/Exam Limitations: no limitations Onset/Duration Of Symptoms: Days Current Symptoms Are (Timing): Still Present Past Medical History Reviewed: Historical Data, Nursing Documentation, Vital Signs Vital Signs: Last Vital Signs Temp 98.0 F 01/05/18 14:32 Pulse 108 H 01/05/18 16:12 Resp 16 01/05/18 16:12 BP 106/84 01/05/18 16:12 Pulse Ox 96 01/05/18 16:27 - Medical History PMH: Arthritis, Asthma, Bipolar Disorder, Diabetes, Gastritis, HTN, Schizophrenia Surgical History: Cholecystectomy - [facility] Procedures DILATION OF 1 COR ART WITH DRUG-ELUT INTRA, PERC APPROACH (04/28/17) FLUOROSCOPY OF LEFT HEART USING LOW OSMOLAR CONTRAST (04/28/17) FLUOROSCOPY OF MULT COR ART USING L OSM CONTRAST (04/28/17) MEASURE OF CARDIAC SAMPL & PRESSURE, L HEART, PERC APPROACH (04/28/17) Family History: States: No Known Family Hx - Social History Hx Tobacco Use: No Hx Alcohol Use: No Hx Substance Use: No - Immunization History Hx Tetanus Toxoid Vaccination: No Hx Influenza Vaccination: Yes (06/18/2017) Hx Pneumococcal Vaccination: Yes (06/18/2017) Review Of Systems Except As Marked, All Systems Reviewed And Found Negative. Constitutional: Negative for: Fever, Chills Cardiovascular: Positive for: Chest Pain, Palpitations. Negative for: Edema, Light Headedness Respiratory: Positive for: SOB with Excertion. Negative for: Cough Gastrointestinal: Negative for: Nausea, Vomiting, Abdominal Pain, Diarrhea, Constipation Musculoskeletal: Positive for: Shoulder Pain (L side x 1 month) Skin: Negative for: Rash Neurological: Negative for: Weakness, Numbness, Incoordination, Confusion, Seizures, Altered Mental Status, Headache, Dizziness Physical Exam - Physical Exam Appears: Well, Non-toxic, No Acute Distress Skin: Warm, Dry, No Rash Head: Atraumatic, Normacephalic Eye(s): bilateral: Normal Inspection, PERRL, EOMI Oral Mucosa: Moist Neck: Normal ROM, Supple Chest: Symmetrical Cardiovascular: Rhythm Regular, Other (Tachycardic) Respiratory: Normal Breath Sounds, No Rales, No Rhonchi, No Wheezing Gastrointestinal/Abdominal: Soft, No Tenderness, No Guarding, No Rebound Back: Normal Inspection, No CVA Tenderness Extremity: Normal ROM (normal ROM but with pain to L shoulder), No Pedal Edema, Capillary Refill (<2 seconds), Other (equal distal pulses) Neurological/Psych: Oriented x3, Normal Speech, Normal Cognition Gait: Steady ED Course And Treatment - Laboratory Results Result Diagrams: 01/05/18 15:10 01/05/18 15:10 O2 Sat by Pulse Oximetry: 96 (RA) Pulse Ox Interpretation: Normal Medical Decision Making Medical Decision Making: Plan: CXR, ECG, Blood work ordered. IV fluids and Aspirin administered EKG shows sinus tachycardia at 112bpm with non-specific st changes, unchanged from prior. Trop x 1 negative. D-dimer negative. L shoulder xray also added because also complaining of chronic pain and decreased ROM x 1 month. More consistent with rotator cuff injury. Will need tele observation for further evaluation due to persistent tachycardia and multiple cardiac risk factors with known CAD 4:27 Dr. Schneider at bedside evaluating Disposition - Disposition Disposition: HOSPITALIZED Disposition Time: 16:09 Condition: FAIR - Clinical Impression Clinical Impression: Palpitations, Tachycardia, Chest pain - Scribe Statement The provider has reviewed the documentation as recorded by the Jennifer Garrett All medical record entries made by the Jennifer were at my direction and personally dictated by me. I have reviewed the chart and agree that the record accurately reflects my personal performance of the history, physical exam, medical decision making, and the department course for this patient. I have also personally directed, reviewed, and agree with the discharge instructions and disposition.
[2018-01-05 15:25] LABS: ALB/GLOB RATIO 1.2 (1.0-2.1); ALBUMIN 3.9 g/dL (3.5-5.0); ALT/SGPT 22 U/L (9-52); AST/SGOT 17 U/L (14-36); BLOOD UREA NITROGEN 9 mg/dL (7-17); GFR AFRICAN-AMERICAN > 60; GFR NON-AFRICAN AMERICAN > 60
[2018-01-05 15:31] LABS: D DIMER < 200 ng/mlDDU (0-243); PARTIAL THROMBOPLASTIN TIME 33 SECONDS (21-34); PROTHROMBIN TIME 11.7 SECONDS (9.7-12.2)
--- NOTE | 2018-01-05 16:33 | RAD ---
PROCEDURE: Radiographs of the Left Shoulder HISTORY: Left shoulder pain COMPARISON: No prior however correlation made with prior chest radiograph 06/23/2017 which imaged the left shoulder in AP projection. FINDINGS: BONES: Normal. No fracture. JOINTS: Mild degenerative osteoarthritis left acromioclavicular and glenohumeral joints. SOFT TISSUES: Small curvilinear calcification within the soft tissues adjacent to the superior margin left AC joint. OTHER FINDINGS: None. IMPRESSION: No evidence of acute displaced fracture nor dislocation. Mild DJD. No if symptoms persist or worsen consider follow-up MRI.
--- NOTE | 2018-01-05 16:34 | RAD ---
HISTORY: Chest pain. COMPARISON: Comparison chest dated 06/23/2017. FINDINGS: LUNGS: No active pulmonary disease. PLEURA: No significant pleural effusion identified, no pneumothorax apparent. CARDIOVASCULAR: Normal. OSSEOUS STRUCTURES: No significant abnormalities. VISUALIZED UPPER ABDOMEN: Normal. OTHER FINDINGS: None. IMPRESSION: No active disease.
--- NOTE | 2018-01-05 16:36 | CP.PCM.HP ---
History of Present Illness - History of Present Illness History of Present Illness: dictated Present on Admission - Present on Admission Any Indicators Present on Admission: No History of DVT/PE: No History of Uncontrolled Diabetes: No Urinary Catheter: No Decubitus Ulcer Present: No Past Patient History - Past Medical History & Family History Past Medical History?: Yes - Past Social History Smoking Status: Former Smoker - CARDIAC Hx Hypertension: Yes - PULMONARY Hx Asthma: Yes - NEUROLOGICAL Hx Alzheimer's Disease: No Hx Dementia: No Hx Migraine: No Hx Multiple Sclerosis: No Hx Parkinson's Disease: No Hx Seizures: No Hx Transient Ischemic Attacks (TIA): No - HEENT Hx HEENT Problems: No Hx Blind: No Hx Cataracts: No Hx Deafness: No Hx Difficulty Chewing: No Hx Epistaxis: No Hx Glaucoma: No Hx Macular Degeneration: No - RENAL Hx Chronic Kidney Disease: No Hx Kidney Stones: No - ENDOCRINE/METABOLIC Hx Hyperthyroidism: No Hx Hypothyroidism: No - HEMATOLOGICAL/ONCOLOGICAL Hx Anemia: No Hx Human Immunodeficiency Virus (HIV): No Hx Sickle Cell Disease: No - INTEGUMENTARY Hx Dermatological Problems: No Hx Basil Cell: No Hx Whatley: No Hx Cellulitis: No Hx Eczema: No Hx Melanoma: No Hx Psoriasis: No Hx Squamous Cell: No - MUSCULOSKELETAL/RHEUMATOLOGICAL Hx Arthritis: Yes - GASTROINTESTINAL Hx Gastritis: Yes - GENITOURINARY/GYNECOLOGICAL Hx Sexually Transmitted Disorders: No - PSYCHIATRIC Hx Bipolar Disorder: Yes Hx Schizophrenia: Yes Hx Substance Use: No - SURGICAL HISTORY Hx Cholecystectomy: Yes - ANESTHESIA Hx Anesthesia: Yes Hx Anesthesia Reactions: No Meds Allergies/Adverse Reactions: Allergies Allergy/AdvReac Type Severity Reaction Status Date / Time seafood Allergy Severe hives Uncoded 01/05/18 14:34 Results - Vital Signs Recent Vital Signs: Last Vital Signs Temp 98.0 F 01/05/18 14:32 Pulse 108 H 01/05/18 16:12 Resp 16 01/05/18 16:12 BP 106/84 01/05/18 16:12 Pulse Ox 96 01/05/18 16:35 - Labs Result Diagrams: 01/05/18 15:10 01/05/18 15:10 Labs: Laboratory Results - last 24 hr 01/05/18 01/05/18 01/05/18 15:10 15:10 15:10 WBC 7.4 RBC 4.46 Hgb 12.6 Hct 37.2 MCV 83.6 MCH 28.3 MCHC 33.9 RDW 13.5 Plt Count 219 MPV 7.5 Neut % (Auto) 64.8 Lymph % (Auto) 25.0 [place] % (Auto) 6.1 Eos % (Auto) 3.2 Baso % (Auto) 0.9 Neut # (Auto) 4.8 Lymph # (Auto) 1.8 [place] # (Auto) 0.4 Eos # (Auto) 0.2 Baso # (Auto) 0.1 PT 11.7 INR 1.0 APTT 33 D-Dimer, Quantitative < 200 Sodium 139 Potassium 4.1 Chloride 102 Carbon Dioxide 21 L Anion Gap 19 BUN 9 Creatinine 0.6 L Est GFR ( Amer) > 60 Est GFR (Non-Af Amer) > 60 Random Glucose 334 H Calcium 9.0 Total Bilirubin 0.4 AST 17 ALT 22 Alkaline Phosphatase 109 Troponin I < 0.0120 Total Protein 7.2 Albumin 3.9 Globulin 3.3 Albumin/Globulin Ratio 1.2 Free T4 TSH 3rd Generation 1.97 01/05/18 15:18 WBC RBC Hgb Hct MCV MCH MCHC RDW Plt Count MPV Neut % (Auto) Lymph % (Auto) [place] % (Auto) Eos % (Auto) Baso % (Auto) Neut # (Auto) Lymph # (Auto) [place] # (Auto) Eos # (Auto) Baso # (Auto) PT INR APTT D-Dimer, Quantitative Sodium Potassium Chloride Carbon Dioxide Anion Gap BUN Creatinine Est GFR ( Amer) Est GFR (Non-Af Amer) Random Glucose Calcium Total Bilirubin AST ALT Alkaline Phosphatase Troponin I Total Protein Albumin Globulin Albumin/Globulin Ratio Free T4 0.71 L TSH 3rd Generation
--- NOTE | 2018-01-05 18:12 | CT ---
PROCEDURE: CT Chest without contrast HISTORY: pleuritis COMPARISON: None. TECHNIQUE: Contiguous axial images were obtained through the chest without intravenous contrast enhancement. Sagittal and coronal reconstructions were performed. Radiation dose (DLP): 727.89 mGy-cm. This CT exam was performed using one or more of the following dose reduction techniques: Automated exposure control, adjustment of the mA and/or kV according to patient size, and/or use of iterative reconstruction technique. FINDINGS: LUNGS: Clear lungs. Visualized airway clear. MEDIASTINUM: Unremarkable thoracic aorta. No aneurysm. Normal sized heart. Main pulmonary artery unremarkable. No vascular congestion. No lymphadenopathy. PLEURA: No pleural fluid. No pneumothorax. BONES: No fracture. No destructive lesion. UPPER ABDOMEN: Grossly unremarkable. OTHER FINDINGS: None. IMPRESSION: Unremarkable non-contrast enhanced CT of the chest.
[2018-01-05] MEDS ORDERED: Albuterol-Ipratrop 3 mg / 0.5 (3 ml) UD INH PRN (20:00)
[2018-01-05 20:21] LABS: CK-MB < 0.22 ng/mL (0.0-3.38)
[2018-01-05] MEDS ORDERED: SEROQUEL PO SCH (22:00)
[2018-01-05] MEDS: Acetaminophen-Codeine 300/30 mg Tab PO PRN (22:23)
[2018-01-06 00:29] VITALS: RESP 20
--- NOTE | 2018-01-06 01:51 | HP ---
The patient was seen by me in the emergency room. CHIEF COMPLAINT: Chest pain, started yesterday night. HISTORY OF PRESENT ILLNESS: The patient is a 67-year-old female with history of bipolar disease, hypertension, hypercholesterolemia, CAD, status post stent came to the emergency room because of her chest pain. The patient started noticing sudden onset of chest discomfort last night, went to see the support engineer today and asked the patient to go to the emergency room because of the ongoing chest pain. The patient was also complaining of at least not feeling well for two weeks on and off cough, some running nose, fever and chills. The patient did not have any chest pain at that time, but she started having pain yesterday. She was also having minimal chest discomfort and the pain was actually radiating to the left shoulder and also in the back. She did not have any fall or injury. The patient lives by herself at home. She is using cane, walker, and she does take care of herself most of the time. She has no home health aid help at this time. The patient does shopping by herself and mostly independent. The patient is taking multiple medications and also she is being seen by psychiatrist for the control of bipolar disease. She has no GI symptoms currently. Does not have any leg swelling. She used to be a heavy smoker in the past. PAST MEDICAL HISTORY: Hypertension, hypercholesterolemia, CAD, status post stent. ALLERGIES: NO KNOWN DRUG ALLERGIES EXCEPT SEA FOOD. PERSONAL HISTORY: The patient used to be a heavy smoker at least she was saying that smoking five pack of cigarettes every day for more than 20 years and she quit 30 years ago. Denies any drug abuse. FAMILY HISTORY: Noncontributory. The patient has 7 children and many grand kids but most of them outside the city. MEDICATIONS: Reviewed. SURGICAL HISTORY: Appendectomy and cholecystectomy. REVIEW OF SYSTEMS: The patient has no headache or visual symptoms. Denies any shortness of breath but complaining of cough, chest pain, left shoulder pain, pain in the left arm. No GI symptoms. PHYSICAL EXAMINATION: GENERAL: The patient is not in any distress. HEENT: PERRLA. NECK: Supple. CHEST: Bilateral good entry. No wheezing or rales noted. CARDIAC: Regular heart. ABDOMEN: Nontender abdomen. EXTREMITIES: No pedal edema. GANG TAILER: Alert, awake, and oriented x3. No functional or neurological deficits. LABORATORY DATA: Reviewed. Elevated glucose noted. TSH is normal. Cardiac enzymes are negative. CBC nonspecific. Chest x-ray and shoulder x-ray showing no evidence of any acute fracture. No infiltrates noted. EKG normal sinus rhythm, but tachycardia noted. D-dimer noted to be less than 200. ASSESSMENT AND RECOMMENDATIONS: A 67-year-old female with history of hypertension, bronchial asthma, bipolar disease, diabetes, gastritis, history of gastric endoscopy, coronary artery disease and stent, admitted to the hospital now with acute chest pain and also relative history of possible acute and chronic bronchitis. The patient in the past has a remote history of smoking also. Less likely there is any deep venous thrombosis. We will continue to monitor the patient, telemetry monitoring, cardiac enzymes monitoring, Cardiology evaluation, DVT and GI prophylaxis. We will get a CAT scan of the chest and we will follow up the patient. 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 Jluis Schneider MD
[2018-01-06 07:19] LABS: BASO # 0.1 K/uL (0.0-0.2); BASO % 0.9 % (0.0-2.0); EOS # 0.3 K/uL (0.0-0.7); EOS % 4.9 % (0.0-4.0); HEMOGLOBIN 12.3 g/dL (11.0-16.0); LYMPH # 2.3 K/uL (1.0-4.3); LYMPH % 36.1 % (20.0-40.0); MEAN CELL VOLUME 83.3 fL (81.0-99.0); MEAN CORPUSCULAR HEMOGLOBIN 28.8 pg (27.0-31.0); MEAN CORPUSCULAR HGB CONC 34.6 g/dL (33.0-37.0); MEAN PLATELET VOLUME 7.8 fL (7.2-11.7); MONO # 0.4 K/uL (0.0-0.8); MONO % 6.7 % (0.0-10.0); NEUT # 3.2 K/uL (1.8-7.0); NEUT % 51.4 % (50.0-75.0); RBC 4.29 Mil/uL (3.80-5.20); RED CELL DISTRIBUTION WIDTH 13.7 % (11.5-14.5); WHITE BLOOD COUNT 6.3 K/uL (4.8-10.8)
[2018-01-06 07:38] LABS: LDL CHOLESTEROL 56 mg/dL (0-129)
[2018-01-06 07:39] LABS: ALB/GLOB RATIO 1.1 (1.0-2.1); ALBUMIN 3.8 g/dL (3.5-5.0); ALT/SGPT 25 U/L (9-52); AST/SGOT 19 U/L (14-36); BLOOD UREA NITROGEN 13 mg/dL (7-17); CALCIUM 8.9 mg/dl (8.6-10.4); GFR AFRICAN-AMERICAN > 60; GFR NON-AFRICAN AMERICAN > 60; HDL CHOLESTEROL 41 mg/dL (30-70)
[2018-01-06] MEDS: Acetaminophen-Codeine 300/30 mg Tab PO PRN (09:29)
[2018-01-06] MEDS: Vitamins A & D Oint UD Foilpak TOP PRN (11:34)
[2018-01-06 20:47] LABS: B-TYPE NATRIURETIC PEPTIDE 52.6 pg/mL (0-900)
[2018-01-06 21:00] LABS: CK-MB < 0.22 ng/mL (0.0-3.38)
--- NOTE | 2018-01-06 21:54 | CP.PCM.PN ---
Subjective - Date & Time of Evaluation Date of Evaluation: 01/06/18 Time of Evaluation: 21:52 - Subjective Subjective: pt has pain in the left shoulder and chest area but no sweating or dizziness no palpitation vitals stable will watch cardiology consult echo ct chest f/u Objective - Vital Signs/Intake and Output Vital Signs (last 24 hours): Temp Pulse Resp BP Pulse Ox 97.9 F 86 20 129/68 95 01/06/18 16:12 01/06/18 17:51 01/06/18 16:12 01/06/18 17:51 01/06/18 16:12 Intake and Output: 01/06/18 01/07/18 18:59 06:59 Intake Total 720 Balance 720 - Medications Medications: Current Medications Acetaminophen/Codeine Phosphate (Tylenol/Codeine 300 Mg/30 Mg) 1 ea PO Q4 PRN PRN Reason: Pain, moderate (4-7) Last Admin: 01/06/18 09:29 Dose: 1 ea Albuterol/Ipratropium (Duoneb 3 Mg/0.5 Mg (3 Ml) Ud) 3 ml INH RQ6 PRN PRN Reason: Cough Aspirin (Ecotrin) 81 mg PO DAILY [facility] Last Admin: 01/06/18 09:26 Dose: 81 mg Clonazepam (Klonopin) 0.5 mg PO TID [facility] Last Admin: 01/06/18 17:49 Dose: 0.5 mg Clopidogrel Bisulfate (Plavix) 75 mg PO DAILY [facility] Last Admin: 01/06/18 09:26 Dose: 75 mg Famotidine (Pepcid) 20 mg PO BID [facility] Last Admin: 01/06/18 17:49 Dose: 20 mg Gabapentin (Neurontin) 1,200 mg PO BID [facility] Last Admin: 01/06/18 17:49 Dose: 1,200 mg Heparin Sodium (Porcine) (Heparin) 5,000 units SC Q8 [facility] Last Admin: 01/06/18 21:26 Dose: 5,000 units Levothyroxine Sodium (Synthroid) 25 mcg PO DAILY@0630 [facility] Metoprolol Tartrate (Lopressor) 50 mg PO BID [facility] Last Admin: 01/06/18 17:49 Dose: 50 mg Quetiapine Fumarate (Seroquel) 100 mg PO HS [facility] Last Admin: 01/06/18 21:25 Dose: 100 mg Rosuvastatin Calcium (Crestor) 10 mg PO HS [facility] Last Admin: 01/06/18 21:25 Dose: 10 mg Vitamin A (Vitamin A & D Oint Ud Foilpak) 0.5 ea TOP Q4 PRN PRN Reason: Dry skin Last Admin: 01/06/18 11:34 Dose: 0.5 ea - Labs Labs: 01/06/18 06:59 01/06/18 06:59 PT 11.7 SECONDS (9.7-12.2) 01/05/18 15:10 INR 1.0 01/05/18 15:10 APTT 33 SECONDS (21-34) 01/05/18 15:10
[2018-01-07] MEDS ORDERED: Levothyroxine 25 MCG TAB PO SCH (06:30)
[2018-01-07 08:26] VITALS: BP 114/64; TEMP 98; O2SAT 98
[2018-01-07 08:30] VITALS: PULSE 79
--- NOTE | 2018-01-07 10:57 | CP.PCM.CON ---
History of Present Illness - History of Present Illness History of Present Illness: 67 y/o female with history of HTN, DM and CAD with stents presents to ED with complaints of palpitations since yesterday and sob with exertion. Currently feels better denies chest pain and dyspnea - Medical History PMH: Arthritis, Asthma, Bipolar Disorder, Diabetes, Gastritis, HTN, Schizophrenia Surgical History: Cholecystectomy - [facility] Procedures DILATION OF 1 COR ART WITH DRUG-ELUT INTRA, PERC APPROACH (04/28/17) FLUOROSCOPY OF LEFT HEART USING LOW OSMOLAR CONTRAST (04/28/17) FLUOROSCOPY OF MULT COR ART USING L OSM CONTRAST (04/28/17) MEASURE OF CARDIAC SAMPL & PRESSURE, L HEART, PERC APPROACH (04/28/17) Family History: States: No Known Family Hx - Social History Hx Tobacco Use: No Hx Alcohol Use: No Hx Substance Use: No - Immunization History Hx Tetanus Toxoid Vaccination: No Hx Influenza Vaccination: Yes (06/18/2017) Hx Pneumococcal Vaccination: Yes (06/18/2017) Review Of Systems Except As Marked, All Systems Reviewed And Found Negative. Constitutional: Negative for: Fever, Chills Cardiovascular: Positive for: Chest Pain, Palpitations. Negative for: Edema, Light Headedness Respiratory: Positive for: SOB with Excertion. Negative for: Cough Gastrointestinal: Negative for: Nausea, Vomiting, Abdominal Pain, Diarrhea, Constipation Musculoskeletal: Positive for: Shoulder Pain (L side x 1 month) Skin: Negative for: Rash Neurological: Negative for: Weakness, Numbness, Incoordination, Confusion, Seizures, Altered Mental Status, Headache, Dizziness Physical Exam - Physical Exam Appears: Well, Non-toxic, No Acute Distress Skin: Warm, Dry, No Rash Head: Atraumatic, Normacephalic Eye(s): bilateral: Normal Inspection, PERRL, EOMI Oral Mucosa: Moist Neck: Normal ROM, Supple Chest: Symmetrical Cardiovascular: Rhythm Regular, Other (Tachycardic) Respiratory: Normal Breath Sounds, No Rales, No Rhonchi, No Wheezing Gastrointestinal/Abdominal: Soft, No Tenderness, No Guarding, No Rebound Back: Normal Inspection, No CVA Tenderness Extremity: Normal ROM (normal ROM but with pain to L shoulder), No Pedal Edema, Capillary Refill (<2 seconds), Other (equal distal pulses) Neurological/Psych: Oriented x3, Normal Speech, Normal Cognition Gait: Steady Past Patient History - Past Medical History & Family History Past Medical History?: Yes - Past Social History Smoking Status: Former Smoker - CARDIAC Hx Hypertension: Yes - PULMONARY Hx Asthma: Yes - NEUROLOGICAL Hx Alzheimer's Disease: No Hx Dementia: No Hx Migraine: No Hx Multiple Sclerosis: No Hx Parkinson's Disease: No Hx Seizures: No Hx Transient Ischemic Attacks (TIA): No - HEENT Hx HEENT Problems: No Hx Blind: No Hx Cataracts: No Hx Deafness: No Hx Difficulty Chewing: No Hx Epistaxis: No Hx Glaucoma: No Hx Macular Degeneration: No - RENAL Hx Chronic Kidney Disease: No Hx Kidney Stones: No - ENDOCRINE/METABOLIC Hx Hyperthyroidism: No Hx Hypothyroidism: No - HEMATOLOGICAL/ONCOLOGICAL Hx Anemia: No Hx Human Immunodeficiency Virus (HIV): No Hx Sickle Cell Disease: No - INTEGUMENTARY Hx Dermatological Problems: No Hx Basil Cell: No Hx Whatley: No Hx Cellulitis: No Hx Eczema: No Hx Melanoma: No Hx Psoriasis: No Hx Squamous Cell: No - MUSCULOSKELETAL/RHEUMATOLOGICAL Hx Arthritis: Yes - GASTROINTESTINAL Hx Gastritis: Yes - GENITOURINARY/GYNECOLOGICAL Hx Sexually Transmitted Disorders: No - PSYCHIATRIC Hx Bipolar Disorder: Yes Hx Schizophrenia: Yes Hx Substance Use: No - SURGICAL HISTORY Hx Cholecystectomy: Yes - ANESTHESIA Hx Anesthesia: Yes Hx Anesthesia Reactions: No Meds Allergies/Adverse Reactions: Allergies Allergy/AdvReac Type Severity Reaction Status Date / Time seafood Allergy Severe hives Uncoded 01/05/18 14:34 - Medications Medications: Current Medications Acetaminophen/Codeine Phosphate (Tylenol/Codeine 300 Mg/30 Mg) 1 ea PO Q4 PRN PRN Reason: Pain, moderate (4-7) Last Admin: 01/06/18 09:29 Dose: 1 ea Albuterol/Ipratropium (Duoneb 3 Mg/0.5 Mg (3 Ml) Ud) 3 ml INH RQ6 PRN PRN Reason: Cough Aspirin (Ecotrin) 81 mg PO DAILY [facility] Last Admin: 01/07/18 10:09 Dose: 81 mg Clonazepam (Klonopin) 0.5 mg PO TID [facility] Last Admin: 01/07/18 10:09 Dose: 0.5 mg Clopidogrel Bisulfate (Plavix) 75 mg PO DAILY [facility] Last Admin: 01/07/18 10:09 Dose: 75 mg Docusate Sodium (Colace) 100 mg PO TID [facility] Last Admin: 04/21/18 10:09 Dose: 100 mg Famotidine (Pepcid) 20 mg PO BID [facility] Last Admin: 01/07/18 10:09 Dose: 20 mg Gabapentin (Neurontin) 1,200 mg PO BID [facility] Last Admin: 01/07/18 10:09 Dose: 1,200 mg Heparin Sodium (Porcine) (Heparin) 5,000 units SC Q8 [facility] Last Admin: 01/07/18 06:12 Dose: 5,000 units Levothyroxine Sodium (Synthroid) 25 mcg PO DAILY@0630 [facility] Last Admin: 01/07/18 06:10 Dose: 25 mcg Metoprolol Tartrate (Lopressor) 50 mg PO BID [facility] Last Admin: 01/07/18 10:09 Dose: 50 mg Quetiapine Fumarate (Seroquel) 100 mg PO HS [facility] Last Admin: 01/06/18 21:25 Dose: 100 mg Rosuvastatin Calcium (Crestor) 10 mg PO [facility] Last Admin: 01/06/18 21:25 Dose: 10 mg Vitamin A (Vitamin A & D Oint Ud Foilpak) 0.5 ea TOP Q4 PRN PRN Reason: Dry skin Last Admin: 01/06/18 11:34 Dose: 0.5 ea Results - Vital Signs Recent Vital Signs: Last Vital Signs Temp 98 F 01/07/18 07:00 Pulse 79 01/07/18 08:00 Resp 20 01/07/18 07:00 BP 114/64 01/07/18 07:00 Pulse Ox 98 01/07/18 07:00 - Labs Result Diagrams: 01/06/18 06:59 01/06/18 06:59 Labs: Laboratory Results - last 24 hr 01/06/18 01/06/18 01/06/18 17:16 20:04 21:13 POC Glucose (mg/dL) 177 H 204 H Total Creatine Kinase 42 CK-MB (Mass) < 0.22 Troponin I < 0.0120 NT-Pro-B Natriuret Pep 52.6 01/07/18 06:32 POC Glucose (mg/dL) 147 H Total Creatine Kinase CK-MB (Mass) Troponin I NT-Pro-B Natriuret Pep Assessment & Plan - Assessment and Plan (Free Text) Assessment: CAD HTN Hyperlipdemia symptoms have resolved Will d/c patient in am
[2018-01-07] MEDS: Vitamins A & D Oint UD Foilpak TOP PRN (12:36)
--- NOTE | 2018-01-07 12:37 | CP.PCM.PN ---
Subjective - Date & Time of Evaluation Date of Evaluation: 01/07/18 Time of Evaluation: 12:00 - Subjective Subjective: MOBILE PAINT SPECIALIST NOTES Patient seen today, denies any chest pain, sb, dizziness, palpitations, headache, No overnight events reported by RN Objective - Vital Signs/Intake and Output Vital Signs (last 24 hours): Temp Pulse Resp BP Pulse Ox 98 F 79 20 114/64 98 01/07/18 07:00 01/07/18 08:00 01/07/18 07:00 01/07/18 07:00 01/07/18 07:00 Intake and Output: 01/07/18 01/07/18 06:59 18:59 Intake Total 820 Balance 820 - Medications Medications: Current Medications Acetaminophen/Codeine Phosphate (Tylenol/Codeine 300 Mg/30 Mg) 1 ea PO Q4 PRN PRN Reason: Pain, moderate (4-7) Last Admin: 01/06/18 09:29 Dose: 1 ea Albuterol/Ipratropium (Duoneb 3 Mg/0.5 Mg (3 Ml) Ud) 3 ml INH RQ6 PRN PRN Reason: Cough Aspirin (Ecotrin) 81 mg PO DAILY [facility] Last Admin: 01/07/18 10:09 Dose: 81 mg Clonazepam (Klonopin) 0.5 mg PO TID [facility] Last Admin: 01/07/18 10:09 Dose: 0.5 mg Clopidogrel Bisulfate (Plavix) 75 mg PO DAILY [facility] Last Admin: 01/07/18 10:09 Dose: 75 mg Docusate Sodium (Colace) 100 mg PO TID [facility] Last Admin: 01/07/18 10:09 Dose: 100 mg Famotidine (Pepcid) 20 mg PO BID [facility] Last Admin: 01/07/18 10:09 Dose: 20 mg Gabapentin (Neurontin) 1,200 mg PO BID [facility] Last Admin: 01/07/18 10:09 Dose: 1,200 mg Heparin Sodium (Porcine) (Heparin) 5,000 units SC Q8 [facility] Last Admin: 01/07/18 06:12 Dose: 5,000 units Levothyroxine Sodium (Synthroid) 25 mcg PO DAILY@0630 [facility] Last Admin: 01/07/18 06:10 Dose: 25 mcg Metoprolol Tartrate (Lopressor) 50 mg PO BID [facility] Last Admin: 01/07/18 10:09 Dose: 50 mg Quetiapine Fumarate (Seroquel) 100 mg PO HS [facility] Last Admin: 01/06/18 21:25 Dose: 100 mg Rosuvastatin Calcium (Crestor) 10 mg PO HS [facility] Last Admin: 01/06/18 21:25 Dose: 10 mg Vitamin A (Vitamin A & D Oint Ud Foilpak) 0.5 ea TOP Q4 PRN PRN Reason: Dry skin Last Admin: 01/07/18 12:36 Dose: 0.5 ea - Labs Labs: 01/06/18 06:59 01/06/18 06:59 PT 11.7 SECONDS (9.7-12.2) 01/05/18 15:10 INR 1.0 01/05/18 15:10 APTT 33 SECONDS (21-34) 01/05/18 15:10 Assessment and Plan - Assessment and Plan (Free Text) Assessment: a/p 67 y/o female with history of HTN, DM and CAD with stents admitted with palpitations, and sob with exertion. troponin x 3 - negative CT - chest - Unremarkable non-contrast enhanced CT of the chest. TSH- elevated - on synthroid seen by Dr. Schneider today , stable for discharge home today and f/u with Dr. Schneider office in 1 week Discharge plan discussed with patient who understands and agrees with plan
== END 2018-01-07 13:03 | disposition home or self-care (01) ==
LOC: C.ER 14:12 → C.9E 16:08 → C.6T 17:33
PROVIDERS: ADMIT Internal Medicine; ATTEND Internal Medicine
DX: R00.2 Palpitations (principal); R07.9 Chest pain, unspecified; R00.0 Tachycardia, unspecified; J45.909 Unspecified asthma, uncomplicated; I10 Essential (primary) hypertension; F31.9 Bipolar disorder, unspecified; F20.9 Schizophrenia, unspecified; E78.00 Pure hypercholesterolemia, unspecified; E11.9 Type 2 diabetes mellitus without complications; M19.90 Unspecified osteoarthritis, unspecified site; K29.70 Gastritis, unspecified, without bleeding; I25.10 Atherosclerotic heart disease of native coronary artery without angina pectoris; Z95.5 Presence of coronary angioplasty implant and graft; Z79.82 Long term (current) use of aspirin; Z87.891 Personal history of nicotine dependence
CPT/HCPCS: 36415; 71045; 71250; 73030; 80053; 80061; 82948; 83036; 83880; 84439; 84443; 84484; 85025; 85378; 85610; 85730; 99285; G0378; J1644

== ENCOUNTER 2018-04-22 23:39 | Observation (INO) | payer MEDICARE, MEDICAID ==
[2018-04-23 00:25] LABS: BASO # 0.1 K/uL (0.0-0.2); BASO % 1.1 % (0.0-2.0); EOS # 0.1 K/uL (0.0-0.7); EOS % 2.1 % (0.0-4.0); HEMOGLOBIN 12.9 g/dL (11.0-16.0); INR 1.2; LYMPH # 2.3 K/uL (1.0-4.3); LYMPH % 39.3 % (20.0-40.0); MEAN CELL VOLUME 83.3 fL (81.0-99.0); MEAN CORPUSCULAR HEMOGLOBIN 28.9 pg (27.0-31.0); MEAN CORPUSCULAR HGB CONC 34.7 g/dL (33.0-37.0); MEAN PLATELET VOLUME 7.5 fL (7.2-11.7); MONO # 0.4 K/uL (0.0-0.8); MONO % 7.1 % (0.0-10.0); NEUT # 2.9 K/uL (1.8-7.0); NEUT % 50.4 % (50.0-75.0); NRBC % 0.1 % (0.0-2.0); PROTHROMBIN TIME 12.7 SECONDS (9.7-12.2); RBC 4.47 Mil/uL (3.80-5.20); RED CELL DISTRIBUTION WIDTH 13.5 % (11.5-14.5); WHITE BLOOD COUNT 5.8 K/uL (4.8-10.8)
[2018-04-23 01:01] LABS: ALB/GLOB RATIO 1.4 (1.0-2.1); ALBUMIN 4.1 g/dL (3.5-5.0); ALT/SGPT 41 U/L (9-52); AST/SGOT 23 U/L (14-36); BLOOD UREA NITROGEN 9 mg/dL (7-17); CALCIUM 10.1 mg/dl (8.6-10.4); GFR AFRICAN-AMERICAN > 60; GFR NON-AFRICAN AMERICAN > 60
--- NOTE | 2018-04-23 01:26 | C.PDOC ---
Time Seen by Provider: 04/22/18 23:55 Chief Complaint (Nursing): Chest Pain History Per: Patient, EMS Onset/Duration Of Symptoms: Hrs (tonight) Current Symptoms Are (Timing): Better Severity: Moderate Quality: Pressure, "Pain" Associated Symptoms: Nausea, Dyspnea Modifying Factors: Other Indicated Below Nitro Therapy Administered: 2, Per Own Supply, Partial Relief Additional History Per: Prior Records Past Medical History Reviewed: Historical Data, Nursing Documentation, Vital Signs Vital Signs: Last Vital Signs Temp 98.7 F 04/22/18 23:42 Pulse 88 04/22/18 23:42 Resp 16 04/22/18 23:42 BP 98/77 L 04/22/18 23:42 Pulse Ox 98 04/22/18 23:42 - Medical History PMH: Arthritis, Asthma, Bipolar Disorder, Diabetes, Gastritis, HTN, Hyperlipidemia, Schizophrenia Surgical History: Cholecystectomy, Coronary Stent - [facility] Procedures DILATION OF 1 COR ART WITH DRUG-ELUT INTRA, PERC APPROACH (04/28/17) FLUOROSCOPY OF LEFT HEART USING LOW OSMOLAR CONTRAST (04/28/17) FLUOROSCOPY OF MULT COR ART USING L OSM CONTRAST (04/28/17) MEASURE OF CARDIAC SAMPL & PRESSURE, L HEART, PERC APPROACH (04/28/17) Family History: States: Unknown Family Hx - Social History Hx Tobacco Use: No Hx Alcohol Use: No Hx Substance Use: No - Immunization History Hx Tetanus Toxoid Vaccination: No Hx Influenza Vaccination: Yes (06/18/2017) Hx Pneumococcal Vaccination: Yes (06/18/2017) Review Of Systems Except As Marked, All Systems Reviewed And Found Negative. Constitutional: Negative for: Fever Cardiovascular: Positive for: Chest Pain Respiratory: Negative for: Hemoptysis Gastrointestinal: Negative for: Vomiting, Abdominal Pain Musculoskeletal: Negative for: Neck Pain, Leg Pain Neurological: Negative for: Weakness, Numbness Physical Exam - Physical Exam Appears: Non-toxic, No Acute Distress Skin: Normal Color, Warm, Dry, No Rash Head: Atraumatic, Normacephalic Eye(s): bilateral: PERRL, EOMI Neck: Normal ROM, Supple Chest: Symmetrical Cardiovascular: Rhythm Regular Respiratory: Normal Breath Sounds, No Accessory Muscle Use Gastrointestinal/Abdominal: Soft, No Tenderness Back: No CVA Tenderness Extremity: Normal ROM, No Pedal Edema, No Calf Tenderness Neurological/Psych: Oriented x3, Normal Motor, Normal Sensation ED Course And Treatment - Laboratory Results Result Diagrams: 04/23/18 00:11 04/23/18 00:11 Lab Interpretation: No Acute Changes ECG: Interpreted By Me, Viewed By Me ECG Rhythm: Sinus Rhythm, Nonspecific Changes ECG Interpretation: Abnormal Interpretation Of ECG: Q wave in lead III. Rate From EC O2 Sat by Pulse Oximetry: 98 Pulse Ox Interpretation: Normal - Radiology CXR: Interpreted by Me, Viewed By Me CXR Interpretation: Yes: No Acute Disease Progress - Interventions Interventions:: Observation, Oxygen - Medications Administered Oral: Aspirin (given by EMS) - Data Reviewed Data Reviewed: Lab, Diagnostic imaging, EKG, Old records - Patient Status Patient status: Mostly improved - Continuity of Care Discussed patient case with:: Patient, ED Nurse, On-call PMD-pt unassigned Disposition Discussed With : Nallely Herr Comment: She accepted pt on her service. Doctor Will See Patient In The: Hospital Counseled Patient/Family Regarding: Studies Performed, Diagnosis - Disposition Disposition: HOSPITALIZED Disposition Time: 01:28 Condition: FAIR - Clinical Impression Clinical Impression: Acute chest pain
[2018-04-23 03:04] VITALS: O2SAT 98
[2018-04-23 04:02] LABS: HDL CHOLESTEROL 34 mg/dL (30-70)
[2018-04-23 04:13] LABS: LDL CHOLESTEROL 44 mg/dL (0-129)
[2018-04-23 04:31] LABS: CK-MB < 0.22 ng/mL (0.0-3.38)
[2018-04-23] MEDS: Levothyroxine 25 MCG TAB PO SCH (06:56)
--- NOTE | 2018-04-23 08:39 | RAD ---
Date of service: 04/23/2018 PROCEDURE: CHEST RADIOGRAPH, 1 VIEW HISTORY: Chest pain COMPARISON: Portable chest 01/05/2018. FINDINGS: LUNGS: No acute pulmonary disease appreciated bilaterally. PLEURA: No pneumothorax or pleural fluid seen. CARDIOVASCULAR: Prominent cardiomediastinal silhouette appears stable. No pulmonary vascular congestion. OSSEOUS STRUCTURES: No significant abnormalities. VISUALIZED UPPER ABDOMEN: Normal. OTHER FINDINGS: None. IMPRESSION: No interval acute cardiopulmonary disease appreciated.
[2018-04-23] MEDS: Enoxaparin 30 mg Syringe SC SCH (10:21)
--- NOTE | 2018-04-23 13:52 | CP.PCM.CON ---
History of Present Illness - History of Present Illness History of Present Illness: Middle aged female with history of CAD, hyperlipidemia, HTN and Psych issues who came to hospital for chest pain and was admitted for management. Chest pian is resolved now, no associated diaphoresis or palpitation. Review of Systems - Constitutional Constitutional: As Per HPI - Cardiovascular Cardiovascular: As Per HPI - Respiratory Respiratory: As Per HPI - Gastrointestinal Gastrointestinal: As Per HPI - Neurological Neurological: As Per HPI Past Patient History - Past Medical History & Family History Past Medical History?: Yes - Past Social History Smoking Status: Former Smoker - CARDIAC Hx Hypertension: Yes - PULMONARY Hx Asthma: Yes - NEUROLOGICAL Hx Alzheimer's Disease: No Hx Dementia: No Hx Migraine: No Hx Multiple Sclerosis: No Hx Parkinson's Disease: No Hx Seizures: No Hx Transient Ischemic Attacks (TIA): No - HEENT Hx HEENT Problems: No Hx Blind: No Hx Cataracts: No Hx Deafness: No Hx Difficulty Chewing: No Hx Epistaxis: No Hx Glaucoma: No Hx Macular Degeneration: No - RENAL Hx Chronic Kidney Disease: No Hx Kidney Stones: No - ENDOCRINE/METABOLIC Hx Hyperthyroidism: No Hx Hypothyroidism: No - HEMATOLOGICAL/ONCOLOGICAL Hx Anemia: No Hx Human Immunodeficiency Virus (HIV): No Hx Sickle Cell Disease: No - INTEGUMENTARY Hx Dermatological Problems: No Hx Basil Cell: No Hx Whatley: No Hx Cellulitis: No Hx Eczema: No Hx Melanoma: No Hx Psoriasis: No Hx Squamous Cell: No - MUSCULOSKELETAL/RHEUMATOLOGICAL Hx Arthritis: Yes - GASTROINTESTINAL Hx Gastritis: Yes - GENITOURINARY/GYNECOLOGICAL Hx Sexually Transmitted Disorders: No - PSYCHIATRIC Hx Bipolar Disorder: Yes Hx Schizophrenia: Yes Hx Substance Use: No - SURGICAL HISTORY Hx Cholecystectomy: Yes Hx Coronary Stent: Yes - ANESTHESIA Hx Anesthesia: Yes Hx Anesthesia Reactions: No Meds Allergies/Adverse Reactions: Allergies Allergy/AdvReac Type Severity Reaction Status Date / Time seafood Allergy Severe hives Uncoded 01/05/18 14:34 - Medications Medications: Current Medications Aspirin (Ecotrin) 81 mg PO DAILY [facility] Last Admin: 04/23/18 09:13 Dose: 81 mg Clonazepam (Klonopin) 0.5 mg PO TID [facility] Last Admin: 04/23/18 09:13 Dose: 0.5 mg Clopidogrel Bisulfate (Plavix) 75 mg PO DAILY [facility] Last Admin: 04/23/18 09:13 Dose: 75 mg Enoxaparin Sodium (Lovenox) 30 mg SC DAILY [facility] Last Admin: 04/23/18 10:21 Dose: 30 mg Famotidine (Pepcid) 20 mg PO DAILY [facility] Last Admin: 04/23/18 09:13 Dose: 20 mg Gabapentin (Neurontin) 1,200 mg PO BID [facility] Last Admin: 04/23/18 09:13 Dose: 1,200 mg Levothyroxine Sodium (Synthroid) 25 mcg PO DAILY@0630 [facility] Last Admin: 04/23/18 06:56 Dose: 25 mcg [facility] Last Admin: 04/23/18 09:13 Dose: 500 mg Metoprolol Tartrate (Lopressor) 50 mg PO BID [facility] Last Admin: 04/23/18 09:13 Dose: 50 mg Quetiapine Fumarate (Seroquel Xr) 600 mg PO [facility] Rosuvastatin Calcium (Crestor) 10 mg PO DAILY [facility] Physical Exam - Head Exam Head Exam: NORMOCEPHALIC - Eye Exam Pupil Exam: NORMAL ACCOMODATION - Neck Exam Neck exam: Positive for: Normal Inspection - Respiratory Exam Respiratory Exam: NORMAL BREATHING PATTERN - Cardiovascular Exam Cardiovascular Exam: REGULAR RHYTHM - Extremities Exam Extremities exam: Positive for: normal inspection - Neurological Exam Neurological exam: Alert, Oriented x3 Results - Vital Signs Recent Vital Signs: Last Vital Signs Temp 97.8 F 04/23/18 07:30 Pulse 79 04/23/18 08:00 Resp 20 04/23/18 07:30 BP 121/66 04/23/18 07:30 Pulse Ox 98 04/23/18 08:00 - Labs Result Diagrams: 04/23/18 00:11 04/23/18 00:11 Labs: Laboratory Results - last 24 hr 04/23/18 04/23/18 04/23/18 00:11 00:11 00:11 WBC 5.8 RBC 4.47 Hgb 12.9 Hct 37.2 MCV 83.3 MCH 28.9 MCHC 34.7 RDW 13.5 Plt Count 211 MPV 7.5 Neut % (Auto) 50.4 Lymph % (Auto) 39.3 [place] % (Auto) 7.1 Eos % (Auto) 2.1 Baso % (Auto) 1.1 Neut # (Auto) 2.9 Lymph # (Auto) 2.3 [place] # (Auto) 0.4 Eos # (Auto) 0.1 Baso # (Auto) 0.1 PT 12.7 H INR 1.2 APTT 36 H Sodium 143 Potassium 4.3 Chloride 104 Carbon Dioxide 25 Anion Gap 18 BUN 9 Creatinine 0.8 Est GFR ( Amer) > 60 Est GFR (Non-Af Amer) > 60 Random Glucose 173 H Calcium 10.1 Total Bilirubin 0.5 AST 23 ALT 41 Alkaline Phosphatase 117 Total Creatine Kinase CK-MB (Mass) Troponin I < 0.0120 Total Protein 7.1 Albumin 4.1 Globulin 3.0 Albumin/Globulin Ratio 1.4 Triglycerides Cholesterol LDL Cholesterol Direct HDL Cholesterol 04/23/18 03:51 WBC RBC Hgb Hct MCV MCH MCHC RDW Plt Count MPV Neut % (Auto) Lymph % (Auto) [place] % (Auto) Eos % (Auto) Baso % (Auto) Neut # (Auto) Lymph # (Auto) [place] # (Auto) Eos # (Auto) Baso # (Auto) PT INR APTT Sodium Potassium Chloride Carbon Dioxide Anion Gap BUN Creatinine Est GFR ( Amer) Est GFR (Non-Af Amer) Random Glucose Calcium Total Bilirubin AST ALT Alkaline Phosphatase Total Creatine Kinase 47 CK-MB (Mass) < 0.22 Troponin I < 0.0120 Total Protein Albumin Globulin Albumin/Globulin Ratio Triglycerides 123 D Cholesterol 112 LDL Cholesterol Direct 44 HDL Cholesterol 34 - Impressions Impression: Sinus with non-specific ST-T- changes. Assessment & Plan (1) Acute chest pain Assessment and Plan: Significant history of CAD, S/P PTCA/Stent. However troponin is negative so far. IF troponin are negative X3 may D/C home. Follow-up and work-up can be done as out patient. Status: Acute (2) CAD (coronary artery disease) Assessment and Plan: Continue DAPT. Obtain old record from primary physician. If patient is in the hospital for any other reason, echocardiogram to assess LV function. Status: Acute
[2018-04-23 20:45] LABS: % IRON SATURATION 22 (20-55); IRON 77 ug/dL (37-170); TOTAL IRON BINDING CAPACITY 353 ug/dL (250-450)
[2018-04-23 21:45] LABS: FOLATE 8.5 ng/mL
[2018-04-23] MEDS ORDERED: QUEtiapine 200 mg XR Tab PO SCH (22:00)
[2018-04-24] MEDS: Levothyroxine 25 MCG TAB PO SCH (06:12)
--- NOTE | 2018-04-24 06:31 | HP ---
date 04/23/18 Copied To: Nallely Herr MD Attending MD: Nallely Herr MD CHIEF COMPLAINT: Chest pain. HISTORY OF PRESENT ILLNESS: Ms. Isaura Astudillo is a 67-year-old female with a history of asthma, bipolar disorder, gastritis, who came with gastric pain. According to her, this pain is worse . The patient is having symptoms of nausea and dyspnea. The patient was admitted , but still having chest pain off and on. No fever. No chills. No headaches. No dizziness. PAST MEDICAL HISTORY: Arthritis, asthma, bipolar, diabetes mellitus, gastritis, hypertension, and coronary artery disease. FAMILY HISTORY: Father and mother, noncontributory. HABITS: No smoking. No drug. No ethanol. ALLERGIES: THE PATIENT IS ALLERGIC TO THE SEAFOOD. REVIEW OF SYSTEMS: The patient was seen and examined at the bedside. Looking comfortable. No nausea, vomiting, or diarrhea. No hematuria. No hematochezia. No swelling of the legs. No chest pain. No palpitations. No headaches. No dizziness. PHYSICAL EXAMINATION: VITAL SIGNS: Temperature 98.1, pulse 77, blood pressure 119/72, respiratory rate 20. HEENT: Head is normocephalic and atraumatic. Eyes, PERRLA. Extraocular movements are intact. Conjunctivae clear. Nose patent. Mucous membranes are moist. NECK: Supple. No carotid bruits. No thyromegaly. CHEST: Bilaterally symmetrical. HEART: S1 and S2 positive. LUNGS: Clear to auscultation. ABDOMEN: Soft. Bowel sounds positive. No organomegaly. EXTREMITIES: No edema. No cyanosis. NEUROLOGICAL: The patient is awake and alert. Moving all 4 extremities. No focal deficits. LABORATORY DATA: White blood cell is 12.8, hemoglobin 12.9, hematocrit 7.2, and platelets 211. Sodium 143, potassium 4.3, BUN 9, creatinine 0.8, glucose 173. ASSESSMENT AND PLAN: Ms. Isaura Astudillo is a 67-year-old lady with hyperglycemia, troponin x2 is negative, came with chest pain, seen by Dr. Tiffany Pena, kindergartner, history of coronary artery disease, hypercholesterolemia, hypertension, psych issues, former smoker, GI and DVT prophylaxis, repeat labs. Continue taking Ecotrin for pain, Cardiology consult called. We will follow. Nallely Herr MD TOYA
[2018-04-24 06:54] LABS: HEMOGLOBIN 12.4 g/dL (11.0-16.0); MEAN CELL VOLUME 84.4 fL (81.0-99.0); MEAN CORPUSCULAR HEMOGLOBIN 28.8 pg (27.0-31.0); MEAN CORPUSCULAR HGB CONC 34.1 g/dL (33.0-37.0); MEAN PLATELET VOLUME 7.6 fL (7.2-11.7); RBC 4.32 Mil/uL (3.80-5.20); RED CELL DISTRIBUTION WIDTH 13.6 % (11.5-14.5); WHITE BLOOD COUNT 5.5 K/uL (4.8-10.8)
[2018-04-24 07:38] LABS: BLOOD UREA NITROGEN 20 mg/dL (7-17); CALCIUM 9.2 mg/dl (8.6-10.4); GFR AFRICAN-AMERICAN 54; GFR NON-AFRICAN AMERICAN 45
[2018-04-24 08:29] VITALS: BP 119/75; RESP 18; TEMP 97.9
[2018-04-24 08:35] VITALS: PULSE 101
[2018-04-24] MEDS ORDERED: Aritificial Tears (15ml) OU PRN (09:00)
[2018-04-24] MEDS: Enoxaparin 30 mg Syringe SC SCH (09:50)
[2018-04-24 10:21] LABS: CK-MB < 0.22 ng/mL (0.0-3.38)
--- NOTE | 2018-04-24 12:07 | CARD ---
APPROVED REPORT Date of service: 04/22/2018 EKG Measurement Heart [id number] <Conclusion> Normal sinus rhythm Possible Inferior infarct, age undetermined Abnormal ECG
[2018-04-24] MEDS ORDERED: Carboxymethylcellulose 1% Ophth Soln OU PRN (13:00)
== END 2018-04-24 16:27 | disposition home or self-care (01) ==
LOC: C.ER 23:39 → C.6T 04-23 01:29
PROVIDERS: ADMIT Internal Medicine; ATTEND Internal Medicine
DX: I25.10 Atherosclerotic heart disease of native coronary artery without angina pectoris (principal); E78.5 Hyperlipidemia, unspecified; E11.9 Type 2 diabetes mellitus without complications; F31.9 Bipolar disorder, unspecified; I10 Essential (primary) hypertension; F20.9 Schizophrenia, unspecified; J45.909 Unspecified asthma, uncomplicated; Z87.891 Personal history of nicotine dependence; Z90.49 Acquired absence of other specified parts of digestive tract; Z95.5 Presence of coronary angioplasty implant and graft
CPT/HCPCS: 36415; 71045; 80048; 80053; 80061; 82607; 82746; 82948; 83036; 83540; 83550; 84443; 84484; 85025; 85027; 85610; 85730; 93005; 99285; G0378; J1650

== ENCOUNTER 2018-05-03 14:43 | Inpatient (IN) | payer MEDICARE, MEDICAID ==
[2018-05-03 15:25] LABS: BASO # 0.1 K/uL (0.0-0.2); BASO % 1.4 % (0.0-2.0); EOS # 0.2 K/uL (0.0-0.7); EOS % 2.7 % (0.0-4.0); HEMOGLOBIN 12.8 g/dL (11.0-16.0); LYMPH # 1.5 K/uL (1.0-4.3); LYMPH % 26.9 % (20.0-40.0); MEAN CELL VOLUME 83.7 fL (81.0-99.0); MEAN CORPUSCULAR HEMOGLOBIN 28.8 pg (27.0-31.0); MEAN CORPUSCULAR HGB CONC 34.4 g/dL (33.0-37.0); MEAN PLATELET VOLUME 7.6 fL (7.2-11.7); MONO # 0.4 K/uL (0.0-0.8); MONO % 7.6 % (0.0-10.0); NEUT # 3.5 K/uL (1.8-7.0); NEUT % 61.4 % (50.0-75.0); RBC 4.45 Mil/uL (3.80-5.20); RED CELL DISTRIBUTION WIDTH 13.6 % (11.5-14.5); WHITE BLOOD COUNT 5.7 K/uL (4.8-10.8)
[2018-05-03 15:31] LABS: INR 1.2; PROTHROMBIN TIME 12.9 SECONDS (9.7-12.2)
[2018-05-03 15:39] LABS: ALB/GLOB RATIO 1.6 (1.0-2.1); ALBUMIN 4.7 g/dL (3.5-5.0); ALT/SGPT 31 U/L (9-52); AST/SGOT 21 U/L (14-36); BLOOD UREA NITROGEN 17 mg/dL (7-17); CALCIUM 9.1 mg/dl (8.6-10.4); GFR AFRICAN-AMERICAN > 60; GFR NON-AFRICAN AMERICAN > 60
--- NOTE | 2018-05-03 15:40 | RAD ---
Date of service: 05/03/2018 PROCEDURE: CHEST RADIOGRAPH, 1 VIEW HISTORY: SOB COMPARISON: 04/23/2018. FINDINGS: LUNGS: Macro cClear. PLEURA: No pneumothorax or pleural fluid seen. CARDIOVASCULAR: Normal. OSSEOUS STRUCTURES: No significant abnormalities. VISUALIZED UPPER ABDOMEN: Normal. OTHER FINDINGS: None. IMPRESSION: No active pulmonary disease.
[2018-05-03 15:42] LABS: SQUAMOUS EPITHIAL < 1 /hpf (0-5); URINE BILIRUBIN NEGATIVE (NEGATIVE); URINE BLOOD NEGATIVE (NEGATIVE); URINE CLARITY Clear (Clear); URINE COLOR Colorless (YELLOW); URINE GLUCOSE (UA) NORMAL (Normal); URINE LEUKOCYTE ESTERASE NEG Leu/uL (Negative); URINE PROTEIN NEGATIVE (NEGATIVE); URINE UROBILINOGEN NORMAL mg/dL (0.2-1.0)
[2018-05-03 15:47] LABS: CK-MB 0.22 ng/mL (0.0-3.38)
--- NOTE | 2018-05-03 15:52 | C.PDOC ---
History Of Present Illness 67-year-old female, sent to the emergency department from Dr Rowe's office for admission to Dr Schneider for evaluation of chest pain and left arm pain, associated with dizziness. She denies any nausea/vomiting, fever, chills. Time Seen by Provider: 05/03/18 14:59 Chief Complaint (Nursing): Chest Pain History Per: Patient History/Exam Limitations: no limitations Current Symptoms Are (Timing): Still Present Quality: Tightness Modifying Factors: None Recent travel outside of the [place]: No Past Medical History Reviewed: Historical Data, Nursing Documentation, Vital Signs Vital Signs: Last Vital Signs Temp 98.2 F 05/03/18 16:13 Pulse 81 05/03/18 16:13 Resp 18 05/03/18 16:13 BP 127/57 L 05/03/18 16:13 Pulse Ox 95 05/03/18 16:38 - Medical History PMH: Arthritis, Asthma, Bipolar Disorder, Diabetes, Gastritis, HTN, Hyperlipidemia, Schizophrenia Denies: Seizures Surgical History: Cholecystectomy, Coronary Stent - [facility] Procedures DILATION OF 1 COR ART WITH DRUG-ELUT INTRA, PERC APPROACH (04/28/17) FLUOROSCOPY OF LEFT HEART USING LOW OSMOLAR CONTRAST (04/28/17) FLUOROSCOPY OF MULT COR ART USING L OSM CONTRAST (04/28/17) MEASURE OF CARDIAC SAMPL & PRESSURE, L HEART, PERC APPROACH (04/28/17) Family History: States: No Known Family Hx - Social History Hx Tobacco Use: No Hx Alcohol Use: No Hx Substance Use: No - Immunization History Hx Tetanus Toxoid Vaccination: No Hx Influenza Vaccination: Yes (06/18/2017) Hx Pneumococcal Vaccination: Yes (06/18/2017) Review Of Systems Constitutional: Negative for: Fever Cardiovascular: Positive for: Chest Pain Musculoskeletal: Positive for: Arm Pain Neurological: Positive for: Dizziness Physical Exam - Physical Exam Appears: Non-toxic, No Acute Distress Skin: Normal Color, Warm, Dry Head: Atraumatic, Normacephalic Eye(s): bilateral: Normal Inspection, PERRL, EOMI Nose: Normal Oral Mucosa: Moist Lips: Normal Appearing Neck: Normal ROM Cardiovascular: Rhythm Regular, No Murmur Respiratory: Normal Breath Sounds, No Accessory Muscle Use Gastrointestinal/Abdominal: Soft, No Tenderness Back: Normal Inspection Extremity: Normal ROM, No Deformity Neurological/Psych: Oriented x3, Normal Speech Gait: Steady ED Course And Treatment - Laboratory Results Result Diagrams: 05/03/18 15:18 05/03/18 15:18 Lab Interpretation: No Acute Changes ECG: Interpreted By Me ECG Rhythm: Sinus Rhythm ECG Interpretation: No Acute Changes Rate From EC O2 Sat by Pulse Oximetry: 95 Pulse Ox Interpretation: Normal - Radiology CXR: Interpreted by Me CXR Interpretation: Yes: No Acute Disease Progress Note: Labs ordered. Case discussed with Dr Rowe who request admission to Dr Schneider Reassessment Condition: Unchanged - Physician Consult Information Physician Contacted: Jluis Schneider Outcome Of Conversation: admit to tele Disposition Discussed With : Jluis Schneider Doctor Will See Patient In The: Hospital - Disposition Disposition: HOSPITALIZED Disposition Time: 16:10 Condition: STABLE - POA Present On Arrival: None - Clinical Impression Clinical Impression: Chest pain - Scribe Statement The provider has reviewed the documentation as recorded by the Scribe (Paolo Viera) All medical record entries made by the Scribe were at my direction and personally dictated by me. I have reviewed the chart and agree that the record accurately reflects my personal performance of the history, physical exam, medical decision making, and the department course for this patient. I have also personally directed, reviewed, and agree with the discharge instructions and disposition. Decision To Admit - Pt Status Changed To: Hospital Disposition Of: Inpatient - Admit Certification Admit to Inpatient:: After my assessment, the patient will require hospitalization for at least two midnights. This is because of the severity of symptoms shown, intensity of services needed, and/or the medical risk in this patient being treated as an outpatient. - InPatient: Physician Admission Certification: I certify that this patient requires 2 or more midnights of care for the following reason:: Chest Pain - . Bed Request Type: Telemetry Admitting Physician: Jluis Schneider Patient Diagnosis: Chest pain
[2018-05-03 20:31] LABS: CK-MB < 0.22 ng/mL (0.0-3.38)
[2018-05-03] MEDS: QUEtiapine 200 mg XR Tab PO SCH (21:47)
[2018-05-03] MEDS: (Novolin R) Insulin Human Regular 100 units/ml vial SC SCH (21:53)
[2018-05-04 05:04] LABS: CK-MB < 0.22 ng/mL (0.0-3.38)
[2018-05-04] MEDS: Levothyroxine 25 MCG TAB PO SCH (06:12)
[2018-05-04] MEDS ORDERED: DiphenhydrAMINE 50 mg/ml Inj ONE (06:33)
[2018-05-04] MEDS ORDERED: Lidocaine 2% MPF (5 ml) Inj ONE (06:35)
[2018-05-04] MEDS ORDERED: Midazolam 2 MG/2 ML VIAL ONE (06:35)
[2018-05-04] MEDS ORDERED: Iodixanol 320 MG/ML 200 ML BOTTLE IV ONE (06:36)
[2018-05-04] MEDS: (Novolin R) Insulin Human Regular 100 units/ml vial SC SCH ×4 (06:36→21:11)
[2018-05-04] MEDS ORDERED: Verapamil 2 ML ONE (07:03)
[2018-05-04] MEDS ORDERED: Nitroglycerin 50mg in D5W 50 MG/250 ML BOTTLE IV ONE (07:04)
[2018-05-04] MEDS ORDERED: Iodixanol 320 MG/ML 100 ML BOTTLE IV ONE (07:08)
[2018-05-04] MEDS ORDERED: DiphenhydrAMINE 50 mg/ml Inj IVP ONE (09:30)
--- NOTE | 2018-05-04 11:01 | CARD ---
APPROVED REPORT Date of service: 05/03/2018 EKG Measurement Heart [id number] <Conclusion> Normal sinus rhythm Normal ECG
--- NOTE | 2018-05-04 21:00 | CP.PCM.HP ---
Past Patient History - Past Medical History & Family History Past Medical History?: Yes - Past Social History Smoking Status: Never Smoked - CARDIAC Hx Cardiac Disorders: Yes Hx Hypertension: Yes - PULMONARY Hx Respiratory Disorders: Yes Hx Asthma: Yes - NEUROLOGICAL Hx Neurological Disorder: No Hx Seizures: No - HEENT Hx HEENT Problems: No Hx Blind: No Hx Cataracts: No Hx Deafness: No Hx Difficulty Chewing: No Hx Epistaxis: No Hx Glaucoma: No Hx Macular Degeneration: No Hx Sinusitis: No - RENAL Hx Chronic Kidney Disease: No Hx Kidney Stones: No - ENDOCRINE/METABOLIC Hx Endocrine Disorders: Yes Hx Diabetes Mellitus Type 2: Yes Hx Hypothyroidism: Yes - HEMATOLOGICAL/ONCOLOGICAL Hx Blood Disorders: No Hx Anemia: No Hx Human Immunodeficiency Virus (HIV): No Hx Sickle Cell Disease: No - INTEGUMENTARY Hx Dermatological Problems: No Hx Basil Cell: No Hx Whatley: No Hx Cellulitis: No Hx Eczema: No Hx Melanoma: No Hx Psoriasis: No Hx Squamous Cell: No - MUSCULOSKELETAL/RHEUMATOLOGICAL Hx Musculoskeletal Disorders: No Hx Falls: No - GASTROINTESTINAL Hx Gastrointestinal Disorders: Yes Hx Gastritis: Yes - GENITOURINARY/GYNECOLOGICAL Hx Genitourinary Disorders: No Hx Sexually Transmitted Disorders: No - PSYCHIATRIC Hx Psychophysiologic Disorder: Yes Hx Anxiety: Yes Hx Schizophrenia: Yes Hx Substance Use: No - SURGICAL HISTORY Hx Surgeries: Yes Hx Cholecystectomy: Yes Hx Coronary Stent: Yes - ANESTHESIA Hx Anesthesia: Yes Hx Anesthesia Reactions: No Hx Malignant Hyperthermia: No Has any member of the family had a problem w/ anesthesia?: No Meds Allergies/Adverse Reactions: Allergies Allergy/AdvReac Type Severity Reaction Status Date / Time seafood Allergy Severe hives Uncoded 05/03/18 14:50 Results - Vital Signs Recent Vital Signs: Last Vital Signs Temp 98.1 F 05/04/18 15:00 Pulse 107 H 05/04/18 15:00 Resp 20 05/04/18 15:00 BP 128/74 05/04/18 15:00 Pulse Ox 94 L 05/04/18 15:00 - Labs Result Diagrams: 05/03/18 15:18 05/03/18 15:18 Labs: Laboratory Results - last 24 hr 05/03/18 05/04/18 05/04/18 21:35 04:27 06:12 POC Glucose (mg/dL) 257 H 169 H Total Creatine Kinase 61 CK-MB (Mass) < 0.22 Troponin I < 0.0120 05/04/18 05/04/18 05/04/18 06:36 08:24 12:20 POC Glucose (mg/dL) 182 H 198 H 289 H Total Creatine Kinase CK-MB (Mass) Troponin I
--- NOTE | 2018-05-04 21:00 | CP.PCM.PN ---
Subjective - Date & Time of Evaluation Date of Evaluation: 05/04/18 Objective - Vital Signs/Intake and Output Vital Signs (last 24 hours): Temp Pulse Resp BP Pulse Ox 98.1 F 107 H 20 128/74 94 L 05/04/18 15:00 05/04/18 15:00 05/04/18 15:00 05/04/18 15:00 05/04/18 15:00 - Medications Medications: Current Medications Aspirin (Ecotrin) 81 mg PO DAILY [facility] Last Admin: 05/04/18 11:51 Dose: 81 mg Clonazepam (Klonopin) 0.5 mg PO TID [facility] Last Admin: 05/04/18 17:23 Dose: 0.5 mg Clopidogrel Bisulfate (Plavix) 75 mg PO DAILY [facility] Last Admin: 05/04/18 11:51 Dose: 75 mg Insulin Human Regular (Novolin R) 0 unit SC [facility] PRN Reason: Protocol Last Admin: 05/04/18 17:23 Dose: 4 u Levothyroxine Sodium (Synthroid) 25 mcg PO DAILY@0630 [facility] Last Admin: 05/04/18 06:12 Dose: 25 mcg Metoprolol Tartrate (Lopressor) 50 mg PO BID [facility] Last Admin: 05/04/18 17:23 Dose: 50 mg Quetiapine Fumarate (Seroquel Xr) 600 mg PO HS [facility] Last Admin: 05/03/18 21:47 Dose: 600 mg Rosuvastatin Calcium (Crestor) 10 mg PO HS [facility] Last Admin: 05/03/18 21:48 Dose: 10 mg - Labs Labs: 05/03/18 15:18 05/03/18 15:18 PT 12.9 SECONDS (9.7-12.2) H 05/03/18 15:18 INR 1.2 05/03/18 15:18
[2018-05-04] MEDS: QUEtiapine 200 mg XR Tab PO SCH (21:12)
--- NOTE | 2018-05-04 22:47 | CP.PCM.PN ---
Subjective - Date & Time of Evaluation Date of Evaluation: 05/04/18 Time of Evaluation: 10:50 - Subjective Subjective: Patient s/p cath L Cx 70% stenosis For PCI as out patient Objective - Vital Signs/Intake and Output Vital Signs (last 24 hours): Temp Pulse Resp BP Pulse Ox 98.1 F 107 H 20 128/74 94 L 05/04/18 15:00 05/04/18 15:00 05/04/18 15:00 05/04/18 15:00 05/04/18 15:00 Intake and Output: 05/04/18 05/05/18 18:59 06:59 Output Total 1550 Balance -1550 - Medications Medications: Current Medications Aspirin (Ecotrin) 81 mg PO DAILY [facility] Last Admin: 05/04/18 11:51 Dose: 81 mg Clonazepam (Klonopin) 0.5 mg PO TID [facility] Last Admin: 05/04/18 17:23 Dose: 0.5 mg Clopidogrel Bisulfate (Plavix) 75 mg PO DAILY [facility] Last Admin: 05/04/18 11:51 Dose: 75 mg Insulin Human Regular (Novolin R) 0 unit SC [facility] PRN Reason: Protocol Last Admin: 05/04/18 21:11 Dose: Not Given Levothyroxine Sodium (Synthroid) 25 mcg PO DAILY@0630 [facility] Last Admin: 05/04/18 06:12 Dose: 25 mcg Metoprolol Tartrate (Lopressor) 50 mg PO BID [facility] Last Admin: 05/04/18 17:23 Dose: 50 mg Quetiapine Fumarate (Seroquel Xr) 600 mg PO [facility] Last Admin: 05/04/18 21:12 Dose: 600 mg Rosuvastatin Calcium (Crestor) 10 mg PO [facility] Last Admin: 05/04/18 21:11 Dose: 10 mg - Labs Labs: 05/03/18 15:18 05/03/18 15:18 PT 12.9 SECONDS (9.7-12.2) H 05/03/18 15:18 INR 1.2 05/03/18 15:18
[2018-05-05 00:52] VITALS: RESP 18; O2SAT 97
[2018-05-05] MEDS: Levothyroxine 25 MCG TAB PO SCH (05:59)
[2018-05-05] MEDS: (Novolin R) Insulin Human Regular 100 units/ml vial SC SCH ×2 (07:52→12:52)
[2018-05-05 08:03] VITALS: BP 119/71; PULSE 86; TEMP 97.7
--- NOTE | 2018-05-05 12:17 | CP.PCM.DIS ---
Provider - Provider Date of Admission: 05/03/18 15:36 Attending physician: Jluis Schneider MD Hospital Course - Lab Results Lab Results: Most Recent Lab Values WBC 5.7 K/uL (4.8-10.8) 05/03/18 15:18 RBC 4.45 Mil/uL (3.80-5.20) 05/03/18 15:18 Hgb 12.8 g/dL (11.0-16.0) 05/03/18 15:18 Hct 37.2 % (34.0-47.0) 05/03/18 15:18 MCV 83.7 fL (81.0-99.0) 05/03/18 15:18 MCH 28.8 pg (27.0-31.0) 05/03/18 15:18 MCHC 34.4 g/dL (33.0-37.0) 05/03/18 15:18 RDW 13.6 % (11.5-14.5) 05/03/18 15:18 Plt Count 215 K/uL (130-400) 05/03/18 15:18 MPV 7.6 fL (7.2-11.7) 05/03/18 15:18 Neut % (Auto) 61.4 % (50.0-75.0) 05/03/18 15:18 Lymph % (Auto) 26.9 % (20.0-40.0) 05/03/18 15:18 [place] % (Auto) 7.6 % (0.0-10.0) 05/03/18 15:18 Eos % (Auto) 2.7 % (0.0-4.0) 05/03/18:18 Baso % (Auto) 1.4 % (0.0-2.0) 05/03/18 15:18 Neut # (Auto) 3.5 K/uL (1.8-7.0) 05/03/18 15:18 Lymph # (Auto) 1.5 K/uL (1.0-4.3) 05/03/18 15:18 [place] # (Auto) 0.4 K/uL (0.0-0.8) 05/03/18 15:18 Eos # (Auto) 0.2 K/uL (0.0-0.7) 05/03/18 15:18 Baso # (Auto) 0.1 K/uL (0.0-0.2) 05/03/18 15:18 PT 12.9 SECONDS (9.7-12.2) H 05/03/18 15:18 INR 1.2 05/03/18 15:18 Sodium 140 mmol/L (132-148) 05/03/18 15:18 Potassium 4.1 mmol/L (3.6-5.2) 05/03/18 15:18 Chloride 102 mmol/L (98-107) 05/03/18 15:18 Carbon Dioxide 25 mmol/L (22-30) 05/03/18 15:18 Anion Gap 17 (10-20) 05/03/18 15:18 BUN 17 mg/dL (7-17) 05/03/18 15:18 Creatinine 0.8 mg/dL (0.7-1.2) 05/03/18 15:18 Est GFR ( Amer) > 60 05/03/18 15:18 Est GFR (Non-Af Amer) > 60 05/03/18 15:18 POC Glucose (mg/dL) 231 mg/dL (65-110) H 05/05/18 11:07 Random Glucose 193 mg/dL (65-105) H 05/03/18 15:18 Calcium 9.1 mg/dl (8.6-10.4) 05/03/18 15:18 Total Bilirubin 0.5 mg/dL (0.2-1.3) 05/03/18 15:18 AST 21 U/L (14-36) 05/03/18 15:18 ALT 31 U/L (9-52) 05/03/18 15:18 Alkaline Phosphatase 120 U/L (38-126) 05/03/18 15:18 Total Creatine Kinase 61 U/L (30-135) 05/04/18 04:27 CK-MB (Mass) < 0.22 ng/mL (0.0-3.38) 05/04/18 04:27 Troponin I < 0.0120 ng/mL (0.00-0.120) 05/04/18 04:27 Total Protein 7.6 g/dL (6.3-8.3) 05/03/18 15:18 Albumin 4.7 g/dL (3.5-5.0) 05/03/18: Globulin 3.0 gm/dL (2.2-3.9) 05/03/18: Albumin/Globulin Ratio 1.6 (1.0-2.1) 05/03/18 15:18 Urine Color Colorless (YELLOW) 05/03/18 15: Urine Clarity Clear (Clear) 05/03/18 15: Urine pH 6.0 (5.0-8.0) 05/03/18 15: Ur Specific [place] 1.003 (1.003-1.030) 05/03/18 15:32 Urine Protein Negative mg/dL (NEGATIVE) 05/03/18 15:32 Urine Glucose (UA) Normal mg/dL (Normal) 05/03/18: Urine Ketones Negative mg/dL (NEGATIVE) 05/03/18 15:32 Urine Blood Negative (NEGATIVE) 05/03/18 15:32 Urine Nitrate Negative (NEGATIVE) 05/03/18 15: Urine Bilirubin Negative (NEGATIVE) 05/03/18 15:32 Urine Urobilinogen Normal mg/dL (0.2-1.0) 05/03/18 15:32 Ur Leukocyte Esterase Neg [place]/uL (Negative) 05/03/18 15:32 Urine WBC (Auto) < 1 /hpf (0-5) 05/03/18 15:32 Ur Squamous Epith Cells < 1 /hpf (0-5) 05/03/18 15:32 Discharge Plan - Follow Up Plan Condition: STABLE Disposition: HOME/ ROUTINE
--- NOTE | 2018-05-05 13:45 | CP.PCM.PN ---
<Erin Thomson - Last Filed: 05/05/18 13:50> Subjective - Date & Time of Evaluation Date of Evaluation: 05/05/18 Time of Evaluation: 13:44 - Subjective Subjective: Cardiology Progress Note - Dr Rowe Patient seen and examined at bedside. Per nursing, no acute events overnight. Patient is s/p cardiac catheterization. Denies any chest pain or dyspnea. Objective - Vital Signs/Intake and Output Vital Signs (last 24 hours): Temp Pulse Resp BP Pulse Ox 97.7 F 86 18 119/71 97 05/05/18 07:45 05/05/18 07:45 05/05/18 07:45 05/05/18 07:45 05/05/18 07:45 Intake and Output: 05/05/18 05/05/18 06:59 18:59 Intake Total 100 Output Total 1550 Balance -1450 - Medications Medications: Current Medications Aspirin (Ecotrin) 81 mg PO DAILY [facility] Last Admin: 05/05/18 10:50 Dose: 81 mg Clonazepam (Klonopin) 0.5 mg PO TID [facility] Last Admin: 05/05/18 10:50 Dose: 0.5 mg Clopidogrel Bisulfate (Plavix) 75 mg PO DAILY [facility] Last Admin: 05/05/18 10:50 Dose: 75 mg Insulin Human Regular (Novolin R) 0 unit [facility] PRN Reason: Protocol Last Admin: 05/05/18 12:52 Dose: 3 u Levothyroxine Sodium (Synthroid) 25 mcg PO DAILY@0630 [facility] Last Admin: 05/05/18 05:59 Dose: 25 mcg Metoprolol Tartrate (Lopressor) 50 mg PO BID [facility] Last Admin: 05/05/18 10:50 Dose: 50 mg Quetiapine Fumarate (Seroquel Xr) 600 mg PO HS [facility] Last Admin: 05/04/18 21:12 Dose: 600 mg Rosuvastatin Calcium (Crestor) 10 mg PO HS [facility] Last Admin: 05/04/18 21:11 Dose: 10 mg - Labs Labs: 05/03/18 15:18 05/03/18 15:18 PT 12.9 SECONDS (9.7-12.2) H 05/03/18 15:18 INR 1.2 05/03/18 15:18 - Constitutional Appears: Non-toxic, No Acute Distress - Head Exam Head Exam: ATRAUMATIC, NORMAL INSPECTION - Eye Exam Eye Exam: EOMI, Normal appearance - ENT Exam ENT Exam: Mucous Membranes Moist - Neck Exam Neck Exam: Full ROM - Respiratory Exam Respiratory Exam: Clear to Ausculation Bilateral, NORMAL BREATHING PATTERN. absent: Rales, Rhonchi, Wheezes - Cardiovascular Exam Cardiovascular Exam: REGULAR RHYTHM, +S1, +S2 - GI/Abdominal Exam GI & Abdominal Exam: Soft. absent: Tenderness - Back Exam Back Exam: NORMAL INSPECTION - Neurological Exam Neurological Exam: Alert, Awake, Oriented x3 - Psychiatric Exam Psychiatric exam: Anxious, Normal Mood - Skin Skin Exam: Dry, Normal Color, Warm Assessment and Plan - Assessment and Plan (Free Text) Assessment: A/P: 67 year old female with past medical history of CAD s/p stent, HTN, HLD, Hypothyroidism, Bipolar disorder who was sent to the hospital to be evaluated for chest pain associated with dizziness. Patient underwent cardiac catherization. -S/P Cardiac cath that showed Patient L Cx 70% stenosis -For PCI as outpatient -Continue ASA 81mg and Plavix 75mg PO daily -Patient cleared for discharge home -Plan discussed with Dr Jae Thomson DO PGY-2 <Evangelist Rowe - Last Filed: 05/05/18 22:45> Objective - Vital Signs/Intake and Output Vital Signs (last 24 hours): Temp Pulse Resp BP Pulse Ox 97.7 F 86 18 119/71 97 05/05/18 07:45 05/05/18 07:45 05/05/18 07:45 05/05/18 07:45 05/05/18 07:45 - Labs Labs: 05/03/18 15:18 05/03/18 15:18 PT 12.9 SECONDS (9.7-12.2) H 05/03/18 15:18 INR 1.2 05/03/18 15:18 Assessment and Plan - Assessment and Plan (Free Text) Assessment: Patient seen and evaluated personally by me. Plan of care d/w the medical coder and as documented
--- NOTE | 2018-05-05 13:54 | RAD ---
Right wrist three views History: Swelling. Comparison: None available. Findings: Soft tissue swelling at the level of the wrist. Narrowing of the radiocarpal joint space. Degenerative changes noted at the STT joint space with subchondral sclerosis. Degenerative changes noted at the 1st carpometacarpal joint space. Mild productive change at the radial cortex of the distal radius. Subchondral cyst formation and or intraosseous ganglia at the distal pole of the scaphoid bone. Impression: Soft tissue swelling at the level of the wrist. Narrowing of the radiocarpal joint space. Degenerative changes noted at the STT joint space with subchondral sclerosis. Degenerative changes noted at the 1st carpometacarpal joint space. Mild productive change at the radial cortex of the distal radius. Subchondral cyst formation and or intraosseous ganglia at the distal pole of the scaphoid bone. If pain persists, consider MRI.
--- NOTE | 2018-05-08 00:38 | CARDCATH ---
Copied To: Evangelist Rowe MD Attending MD: Evangelist Rowe MD PROCEDURE DATE: 05/04/2018 PROCEDURES: 1. Left heart catheterization. 2. Coronary angiogram. CLINICAL INDICATIONS: 1. Unstable angina. 2. Hypertension. 3. Hyperlipidemia. 4. History of myocardial infraction, coronary artery disease, status post stent placement. REFERRING PHYSICIAN: Jluis Schneider MD PERFORMING PHYSICIAN: Evangelist Rowe MD DESCRIPTION OF PROCEDURE: After informed consent, the patient was prepped and draped in the usual sterile fashion. Lidocaine 2% was given in the right wrist for local anesthesia. Using micropuncture technique, a 6-Micronesian sheath was introduced into the right radial artery. A JR4 6-Micronesian diagnostic catheter crossed into the left ventricle. Left ventricular across aortic valve. LV end-diastolic pressure measured. Contrast injected and LV angiogram was done. Then, the same catheter was pulled back across the aortic valve. The gradient across the aortic valve. The variant across aortic valve measured. Then, the catheter was engaged into right coronary artery. Contrast injected and right coronary angiogram was done. Then, the catheter was exchanged to 6-Micronesian Macon catheter. [place] catheter engaged into the left main coronary artery. Contrast injected and left coronary angiogram was done. Then, the catheter was exchanged to pigtail catheter. Using power injector, aortic root angiogram was performed. FINDINGS: 1. Left main coronary artery is patent. 2. Mid LAD has a 30% to 40% narrowing. Otherwise proximal and distal LAD patent. Diagonal branches are patent. 3. Left circumflex has 70% in-stent restenosis in the mid circumflex region. Obtuse marginal branches are patent. 4. Right coronary artery is dominant and patent. 5. LV ejection fractions are 40% and 65%. No wall motion abnormalities noted. 6. Aortic root angiogram demonstrates no dissections or aneurysm. IMPRESSION: 1. Single-vessel coronary artery disease as described above. There is in-stent 70% narrowing in the left circumflex coronary artery stent. 2. Normal left ventricular systolic function with ejection fraction of 65%. PLAN: Recommend coronary intervention of the left circumflex coronary artery. Evangelist Rowe MD
== END 2018-05-05 16:32 | disposition home or self-care (01) | DRG 287 ==
LOC: C.ER 14:43 → C.9E 15:36 → C.6T 16:04
PROVIDERS: ADMIT Internal Medicine; ATTEND Internal Medicine
PROC: B211YZZ Fluoroscopy of Multiple Coronary Arteries using Other Contrast (ICD-10-PCS; 2018-05-04)
PROC: B215YZZ Fluoroscopy of Left Heart using Other Contrast (ICD-10-PCS; 2018-05-04)
PROC: 4A023N7 Measurement of Cardiac Sampling and Pressure, Left Heart, Percutaneous Approach (ICD-10-PCS; principal; 2018-05-04 06:30)
DX: I25.110 Atherosclerotic heart disease of native coronary artery with unstable angina pectoris (principal); T82.855A Stenosis of coronary artery stent, initial encounter; E03.9 Hypothyroidism, unspecified; E11.9 Type 2 diabetes mellitus without complications; E78.5 Hyperlipidemia, unspecified; F20.9 Schizophrenia, unspecified; F31.9 Bipolar disorder, unspecified; I10 Essential (primary) hypertension; J45.909 Unspecified asthma, uncomplicated; Y83.1 Surgical operation with implant of artificial internal device as the cause of abnormal reaction of the patient, or of later complication, without mention of misadventure at the time of the procedure; Z79.82 Long term (current) use of aspirin; Z90.49 Acquired absence of other specified parts of digestive tract; I25.2 Old myocardial infarction

== ENCOUNTER 2018-09-06 14:31 | Observation (INO) | payer MEDICARE, MEDICAID ==
[2018-09-06] MEDS ORDERED: Sodium Chloride 0.9% 1,000 ML IV ONE (15:04)
[2018-09-06 15:29] LABS: BASO # 0.1 K/uL (0.0-0.2); BASO % 0.8 % (0.0-2.0); EOS # 0.2 K/uL (0.0-0.7); EOS % 3.4 % (0.0-4.0); HEMOGLOBIN 12.3 g/dL (11.0-16.0); LYMPH # 1.7 K/uL (1.0-4.3); LYMPH % 27.6 % (20.0-40.0); MEAN CELL VOLUME 85.1 fL (81.0-99.0); MEAN CORPUSCULAR HEMOGLOBIN 28.9 pg (27.0-31.0); MEAN CORPUSCULAR HGB CONC 33.9 g/dL (33.0-37.0); MEAN PLATELET VOLUME 7.5 fL (7.2-11.7); MONO # 0.5 K/uL (0.0-0.8); MONO % 7.7 % (0.0-10.0); NEUT # 3.8 K/uL (1.8-7.0); NEUT % 60.5 % (50.0-75.0); RBC 4.28 Mil/uL (3.80-5.20); RED CELL DISTRIBUTION WIDTH 13.8 % (11.5-14.5); WHITE BLOOD COUNT 6.3 K/uL (4.8-10.8)
--- NOTE | 2018-09-06 15:40 | C.PDOC ---
History Of Present Illness 68 y/o female,w/PMhx of diabetes, presents to the ER complaining of feeling weak. Patient states that she has blurry vision today. She notes that she wears glasses, however she is not wearing glasses today. Patient is also complaining of headache, nausea, and vomiting which has been present for the past few weeks. She notes that she did not vomit today.Denies having fever, CP, SOB, and abdominal pain. Time Seen by Provider: 09/06/18 14:53 Chief Complaint (Nursing): Weakness/Neurological Deficit History Per: Patient History/Exam Limitations: no limitations Onset/Duration Of Symptoms: Days Current Symptoms Are (Timing): Still Present Severity: Moderate Past Medical History Reviewed: Historical Data, Nursing Documentation, Vital Signs Vital Signs: Last Vital Signs Temp 98.2 F 09/06/18 14:37 Pulse 66 09/06/18 14:37 Resp 16 09/06/18 14:37 BP 134/67 09/06/18 14:37 Pulse Ox 95 09/06/18 14:37 - Medical History PMH: Anxiety, Arthritis, Asthma, Bipolar Disorder, Diabetes, Gastritis, HTN, Hyperlipidemia, Hypothyroidism, Schizophrenia Denies: Alzheimer's Disease, Anemia, Dementia, HIV, Hyperthyroidism, Kidney Stones, Migraine, Multiple Sclerosis, Parkinson's Disease, Chronic Kidney Disease, Seizures, Sickle Cell Disease, Sexually Transmitted Disease, TIA Surgical History: Cholecystectomy, Coronary Stent - [facility] Procedures DILATION OF 1 COR ART WITH DRUG-ELUT INTRA, PERC APPROACH (04/28/17) FLUOROSCOPY OF LEFT HEART USING LOW OSMOLAR CONTRAST (04/28/17) FLUOROSCOPY OF LEFT HEART USING OTHER CONTRAST (05/03/18) FLUOROSCOPY OF MULT COR ART USING L OSM CONTRAST (04/28/17) FLUOROSCOPY OF MULTIPLE CORONARY ARTERIES USING OTH CONTRAST (05/03/18) MEASURE OF CARDIAC SAMPL & PRESSURE, L HEART, PERC APPROACH (05/03/18) Family History: States: No Known Family Hx - Social History Hx Tobacco Use: No Hx Alcohol Use: No Hx Substance Use: No - Immunization History Hx Tetanus Toxoid Vaccination: No Hx Influenza Vaccination: Yes (06/18/2017) Hx Pneumococcal Vaccination: Yes (06/18/2017) Review Of Systems Except As Marked, All Systems Reviewed And Found Negative. Constitutional: Positive for: Weakness Eyes: Positive for: Vision Change Cardiovascular: Negative for: Chest Pain Respiratory: Negative for: Shortness of Breath Gastrointestinal: Positive for: Nausea, Vomiting. Negative for: Abdominal Pain Neurological: Positive for: Headache Physical Exam - Physical Exam Appears: Non-toxic, No Acute Distress Skin: Normal Color, Warm, Dry Head: Atraumatic, Normacephalic Eye(s): bilateral: Normal Inspection Nose: Normal Oral Mucosa: Moist Neck: Supple Chest: Symmetrical Cardiovascular: Rhythm Regular Respiratory: Normal Breath Sounds, No Rales, No Rhonchi, No Wheezing Neurological/Psych: Oriented x3, Normal Speech, Normal Motor, Normal Sensation, Other (finger to nose normal) ED Course And Treatment - Laboratory Results Result Diagrams: 09/06/18 15:21 09/06/18 15:21 Lab Interpretation: Normal ECG: Interpreted By Me ECG Rhythm: Sinus Rhythm ECG Interpretation: No Acute Changes Rate From EC O2 Sat by Pulse Oximetry: 95 (RA) Pulse Ox Interpretation: Normal - Radiology CXR: Interpreted by Ri CXR Interpretation: Yes: No Acute Disease - CT Scan/US No standard instances Other Rad Studies (CT/US): Read By Radiologist, Radiology Report Reviewed CT/US Interpretation: FINDINGS: Mild streak artifact limits evaluation of the skull base. HEMORRHAGE: No intracranial hemorrhage. BRAIN: No mass effect or edema. The campbell-white matter differentiation appears intact. Please note that MRI with diffusion imaging is more sensitive in the detection of acute ischemic event. VENTRICLES: No hydrocephalus. CALVARIUM: Unremarkable. PARANASAL SINUSES: Unremarkable as visualized. No significant inflammatory changes. MASTOID AIR CELLS: Unremarkable as visualized. No inflammatory changes. OTHER FINDINGS: None. IMPRESSION: No acute intracranial pathology identified. Progress Note: on re-evaluation alert and awake. Call placed to Dr Rowe Reassessment Condition: Improved - Physician Consult Information Physician Contacted: Jluis Schneider Outcome Of Conversation: admit to OBS NIHSS Stroke Scale - Date/Time Evaluation Performed Date Performed: 09/06/18 When Was NIHSS Performed: Baseline - How Severe is the Stroke Level of Consciousness: 0=Alert LOC to Questions: 0=Both comments correct LOC to commands: 0=Obeys both correctly Best Gaze: 0=Normal Visual: 0=No visual loss Facial: 0=Normal Motor Arm - Left: 0=No drift Motor Arm - Right: 0=No drift Motor Leg - Left: 0=No drift Motor Leg - Right: 0=No drift Limb Ataxia: 0=Absent Sensory: 0=Normal Best Language: 0=No aphasia Dysarthia: 0=Normal articulation Extinction & Inattention (Neglect): 0=Normal, no object Score: 0 Medical Decision Making Medical Decision Making: Plan: --Labs --ECG --UA --IV Fluids --Zofran IV --Tylenol PO Disposition Discussed With Dr.: Jluis Schneider Doctor Will See Patient In The: Hospital - Disposition Disposition: HOSPITALIZED Disposition Time: 18:00 Condition: STABLE Instructions: Transient Ischemic Attack Forms: [employer] (Uzbek) - POA Present On Arrival: None - Clinical Impression Clinical Impression: TIA (transient ischemic attack) - PA / TANDEM OPERATOR / Resident Statement MD/DO has reviewed & agrees with the documentation as recorded. - Scribe Statement The provider has reviewed the documentation as recorded by the Scribe Prachi Mccabe Provider Attestation All medical record entries made by the Scribe were at my direction and personally dictated by me. I have reviewed the chart and agree that the record accurately reflects my personal performance of the history, physical exam, medical decision making, and the department course for this patient. I have also personally directed, reviewed, and agree with the discharge instructions and disposition. Decision To Admit - Pt Status Changed To: Hospital Disposition Of: Observation - . Bed Request Type: Telemetry Admitting Physician: Jluis Schneider Patient Diagnosis: TIA (transient ischemic attack)
[2018-09-06 15:41] LABS: SQUAMOUS EPITHIAL < 1 /hpf (0-5); URINE BILIRUBIN NEGATIVE (NEGATIVE); URINE BLOOD NEGATIVE (NEGATIVE); URINE CLARITY Clear (Clear); URINE COLOR Colorless (YELLOW); URINE GLUCOSE (UA) NORMAL (Normal); URINE LEUKOCYTE ESTERASE NEG Leu/uL (Negative); URINE PROTEIN NEGATIVE (NEGATIVE); URINE UROBILINOGEN NORMAL mg/dL (0.2-1.0)
[2018-09-06 15:56] LABS: ALB/GLOB RATIO 1.5 (1.0-2.1); ALBUMIN 4.3 g/dL (3.5-5.0); ALT/SGPT 41 U/L (9-52); AST/SGOT 28 U/L (14-36); BLOOD UREA NITROGEN 13 mg/dL (7-17); GFR NON-AFRICAN AMERICAN > 60
[2018-09-06] MEDS ORDERED: Sodium Chloride 0.9% 1,000 ML ONE (15:57)
--- NOTE | 2018-09-06 15:57 | CT ---
Date of service: 09/06/2018 PROCEDURE: CT HEAD WITHOUT CONTRAST. HISTORY: R/O Bleed COMPARISON: None available. TECHNIQUE: Axial computed tomography images were obtained through the head/brain without intravenous contrast. Radiation dose: Total exam DLP = 1026.45 mGy-cm. This CT exam was performed using one or more of the following dose reduction techniques: Automated exposure control, adjustment of the mA and/or kV according to patient size, and/or use of iterative reconstruction technique. FINDINGS: Mild streak artifact limits evaluation of the skull base. HEMORRHAGE: No intracranial hemorrhage. BRAIN: No mass effect or edema. The campbell-white matter differentiation appears intact. Please note that MRI with diffusion imaging is more sensitive in the detection of acute ischemic event. VENTRICLES: No hydrocephalus. CALVARIUM: Unremarkable. PARANASAL SINUSES: Unremarkable as visualized. No significant inflammatory changes. MASTOID AIR CELLS: Unremarkable as visualized. No inflammatory changes. OTHER FINDINGS: None. IMPRESSION: No acute intracranial pathology identified.
--- NOTE | 2018-09-06 16:02 | RAD ---
HISTORY: SOB COMPARISON: Chest x-ray performed 05/03/18 TECHNIQUE: Chest, one view. FINDINGS: Examination limited by habitus. LUNGS: No focal consolidation. Please note that chest x-ray has limited sensitivity for the detection of pulmonary masses. PLEURA: No significant pleural effusion identified. No definite pneumothorax . CARDIOVASCULAR: Heart size appears within normal limits. Atherosclerotic calcification present. OSSEOUS STRUCTURES: Degenerative changes. VISUALIZED UPPER ABDOMEN: Unremarkable. OTHER FINDINGS: None. IMPRESSION: No focal consolidation.
[2018-09-06 16:11] LABS: CK-MB < 0.22 ng/mL (0.0-3.38)
--- NOTE | 2018-09-06 21:36 | CP.PCM.HP ---
History of Present Illness - History of Present Illness History of Present Illness: Chief complaint: Weakness, hypoglycemic attack. HPI: Patient is a 68-year-old female with a history of hypertension high cholesterol diabetes CAD status post stent came to see electrical and radio aircraft mechanic today, and the electrical and radio aircraft mechanic office she was complaining of dizziness, blurring of vision. This morning when she wake up her blood sugar was on the low side. Again while she was waiting for the electrical and radio aircraft mechanic office she started having low blood sugar, and she was sent to the emergency room for further monitoring. Patient was also complaining of increasing dizziness, weakness, and feeling like she is passing out. In the emergency room patient was evaluated had extensive workup, so further workup were negative but she still feeling blurring of vision, and dizziness. Right now patient is not feeling well again. Her blood sugar is in the 90s. But she was able to eat, she has no nausea, no vomiting mild headache noted. She is also complaining of increasing bilateral leg pain, knee pain noted Past medical history: Hypertension Hypercholesterolemia CAD Status post a stent Surgical history: Bilateral knee surgery. Patient had a history of a stent placement. Patient has no known drug allergy Personal history: Patient used to be a heavy smoker in the past. Used to be smoking at least 25 packs of cigarettes in the past, for more than 20 years, quit 30 years ago no drug abuse Family history noncontributory Patient has 7 kids, many grandkids Review of system: Complaining of some headache. Blurring vision occasionally noted. When the blood sugar level is low patient is feeling increasing blurring. No chest pain. Denies any nausea vomiting. No GI symptoms otherwise. Physical examination: Vital signs stable chest good air entry bilaterally regular heart sound nontender abdomen no pedal edema Patient labs reviewed Mild hypoglycemia noted. CAT scan of the head is negative. I spoke to the emergency room attending. I also spoke to the patient. Patient is able to stand up and walk. Neurologically currently intact. Assessment/recommendation: 67-year-old female with a history of hypertension, asthma, bipolar disease, diabetes, gastritis. CAD. Status post a stent now a Admitted to the hospital with hypoglycemic episodes. Possible transient ischemic changes cannot be ruled out. Neurological watch. Accu-Chek monitoring. Repeat CT scan in the morning Carotid Doppler. GI and DVT prophylaxis. We will follow the patient Present on Admission - Present on Admission Any Indicators Present on Admission: No History of DVT/PE: No History of Uncontrolled Diabetes: No Urinary Catheter: No Decubitus Ulcer Present: No Past Patient History - Past Medical History & Family History Past Medical History?: Yes - Past Social History Smoking Status: Never Smoked - CARDIAC Hx Hypertension: Yes - PULMONARY Hx Asthma: Yes - NEUROLOGICAL Hx Alzheimer's Disease: No Hx Dementia: No Hx Migraine: No Hx Multiple Sclerosis: No Hx Parkinson's Disease: No Hx Seizures: No Hx Transient Ischemic Attacks (TIA): No - HEENT Hx HEENT Problems: No Hx Blind: No Hx Cataracts: No Hx Deafness: No Hx Difficulty Chewing: No Hx Epistaxis: No Hx Glaucoma: No Hx Macular Degeneration: No - RENAL Hx Chronic Kidney Disease: No Hx Kidney Stones: No - ENDOCRINE/METABOLIC Hx Hyperthyroidism: No Hx Hypothyroidism: Yes - HEMATOLOGICAL/ONCOLOGICAL Hx Anemia: No Hx Human Immunodeficiency Virus (HIV): No Hx Sickle Cell Disease: No - INTEGUMENTARY Hx Dermatological Problems: No Hx Basil Cell: No Hx Whatley: No Hx Cellulitis: No Hx Eczema: No Hx Melanoma: No Hx Psoriasis: No Hx Squamous Cell: No - MUSCULOSKELETAL/RHEUMATOLOGICAL Hx Arthritis: Yes - GASTROINTESTINAL Hx Gastritis: Yes - GENITOURINARY/GYNECOLOGICAL Hx Sexually Transmitted Disorders: No - PSYCHIATRIC Hx Anxiety: Yes Hx Bipolar Disorder: Yes Hx Schizophrenia: Yes Hx Substance Use: No - SURGICAL HISTORY Hx Cholecystectomy: Yes Hx Coronary Stent: Yes - ANESTHESIA Hx Anesthesia: Yes Hx Anesthesia Reactions: No Hx Malignant Hyperthermia: No Meds Allergies/Adverse Reactions: Allergies Allergy/AdvReac Type Severity Reaction Status Date / Time seafood Allergy Severe hives Uncoded 09/06/18 14:38 Results - Vital Signs Recent Vital Signs: Last Vital Signs Temp 97.8 F 09/06/18 19:55 Pulse 70 09/06/18 19:55 Resp 20 09/06/18 19:55 BP 144/69 09/06/18 19:55 Pulse Ox 96 09/06/18 19:55 - Labs Result Diagrams: 09/06/18 15:21 09/06/18 15:21 Labs: Laboratory Results - last 24 hr 09/06/18 09/06/18 09/06/18 15:05 15:21 15:21 WBC 6.3 RBC 4.28 Hgb 12.3 Hct 36.4 MCV 85.1 MCH 28.9 MCHC 33.9 RDW 13.8 Plt Count 210 MPV 7.5 Neut % (Auto) 60.5 Lymph % (Auto) 27.6 [place] % (Auto) 7.7 Eos % (Auto) 3.4 Baso % (Auto) 0.8 Neut # (Auto) 3.8 Lymph # (Auto) 1.7 [place] # (Auto) 0.5 Eos # (Auto) 0.2 Baso # (Auto) 0.1 Sodium 137 Potassium 4.0 Chloride 103 Carbon Dioxide 24 Anion Gap 15 BUN 13 Creatinine 0.8 Est GFR ( Amer) > 60 Est GFR (Non-Af Amer) > 60 POC Glucose (mg/dL) 100 Random Glucose 94 D Calcium 9.0 Total Bilirubin 0.5 AST 28 ALT 41 Alkaline Phosphatase 99 CK-MB (Mass) < 0.22 Troponin I < 0.0120 Total Protein 7.2 Albumin 4.3 Globulin 2.9 Albumin/Globulin Ratio 1.5 Urine Color Urine Clarity Urine pH Ur Specific [place] Urine Protein Urine Glucose (UA) Urine Ketones Urine Blood Urine Nitrate Urine Bilirubin Urine Urobilinogen Ur Leukocyte Esterase Urine RBC (Auto) Ur Squamous Epith Cells 09/06/18 09/06/18 15:34 20:55 WBC RBC Hgb Hct MCV MCH MCHC RDW Plt Count MPV Neut % (Auto) Lymph % (Auto) [place] % (Auto) Eos % (Auto) Baso % (Auto) Neut # (Auto) Lymph # (Auto) [place] # (Auto) Eos # (Auto) Baso # (Auto) Sodium Potassium Chloride Carbon Dioxide Anion Gap BUN Creatinine Est GFR ( Amer) Est GFR (Non-Af Amer) POC Glucose (mg/dL) 97 Random Glucose Calcium Total Bilirubin AST ALT Alkaline Phosphatase CK-MB (Mass) Troponin I Total Protein Albumin Globulin Albumin/Globulin Ratio Urine Color Colorless Urine Clarity Clear Urine pH 6.0 Ur Specific [place] 1.002 L Urine Protein Negative Urine Glucose (UA) Normal Urine Ketones Negative Urine Blood Negative Urine Nitrate Negative Urine Bilirubin Negative Urine Urobilinogen Normal Ur Leukocyte Esterase Neg Urine RBC (Auto) < 1 Ur Squamous Epith Cells < 1
[2018-09-07] MEDS ORDERED: Levothyroxine 25 MCG TAB PO SCH (06:30)
--- NOTE | 2018-09-07 07:45 | CP.PCM.CON ---
History of Present Illness - History of Present Illness History of Present Illness: CONSULTATION DICTATED VBI CAROTID/MRI/BLOOD WORK UP ? IATROGENIC - GABAPENTIN Past Patient History - Past Medical History & Family History Past Medical History?: Yes - Past Social History Smoking Status: Never Smoked - CARDIAC Hx Hypertension: Yes - PULMONARY Hx Asthma: Yes - NEUROLOGICAL Hx Alzheimer's Disease: No Hx Dementia: No Hx Migraine: No Hx Multiple Sclerosis: No Hx Parkinson's Disease: No Hx Seizures: No Hx Transient Ischemic Attacks (TIA): No - HEENT Hx HEENT Problems: No Hx Blind: No Hx Cataracts: No Hx Deafness: No Hx Difficulty Chewing: No Hx Epistaxis: No Hx Glaucoma: No Hx Macular Degeneration: No - RENAL Hx Chronic Kidney Disease: No Hx Kidney Stones: No - ENDOCRINE/METABOLIC Hx Hyperthyroidism: No Hx Hypothyroidism: Yes - HEMATOLOGICAL/ONCOLOGICAL Hx Anemia: No Hx Human Immunodeficiency Virus (HIV): No Hx Sickle Cell Disease: No - INTEGUMENTARY Hx Dermatological Problems: No Hx Basil Cell: No Hx [place]: No Hx Cellulitis: No Hx Eczema: No Hx Melanoma: No Hx Psoriasis: No Hx Squamous Cell: No - MUSCULOSKELETAL/RHEUMATOLOGICAL Hx Arthritis: Yes - GASTROINTESTINAL Hx Gastritis: Yes - GENITOURINARY/GYNECOLOGICAL Hx Sexually Transmitted Disorders: No - PSYCHIATRIC Hx Anxiety: Yes Hx Bipolar Disorder: Yes Hx Schizophrenia: Yes Hx Substance Use: No - SURGICAL HISTORY Hx Cholecystectomy: Yes Hx Coronary Stent: Yes - ANESTHESIA Hx Anesthesia: Yes Hx Anesthesia Reactions: No Hx Malignant Hyperthermia: No Meds Allergies/Adverse Reactions: Allergies Allergy/AdvReac Type Severity Reaction Status Date / Time seafood Allergy Severe hives Uncoded 09/06/18 14:38 - Medications Medications: Current Medications Aspirin (Ecotrin) 81 mg PO DAILY [facility] Clonazepam (Klonopin) 0.5 mg PO TID [facility] Clopidogrel Bisulfate (Plavix) 75 mg PO DAILY [facility] Gabapentin (Neurontin) 1,200 mg PO BID [facility] Heparin Sodium (Porcine) (Heparin) 5,000 units IVP Q12 [facility] Last Admin: 09/06/18 22:30 Dose: 5,000 units Dextrose (Dextrose 5% In Water) 500 mls @ 40 mls/hr IV .[id number] [facility] Stop: 09/07/18 10:14 Last Admin: 09/06/18 22:30 Dose: 40 mls/hr Levothyroxine Sodium (Synthroid) 25 mcg PO DAILY@0630 [facility] Last Admin: 09/07/18 05:39 Dose: 25 mcg Metoprolol Tartrate (Lopressor) 50 mg PO BID [facility] Rosuvastatin Calcium (Crestor) 10 mg PO [facility] Last Admin: 09/06/18 22:30 Dose: 10 mg Results - Vital Signs Recent Vital Signs: Last Vital Signs Temp 98.1 F 09/07/18 04:20 Pulse 83 09/07/18 04:20 Resp 20 09/07/18 04:20 BP 132/73 09/07/18 04:20 Pulse Ox 96 09/07/18 04:20 - Labs Result Diagrams: 09/06/18 15:21 09/06/18 15:21 Labs: Laboratory Results - last 24 hr 09/06/18 09/06/18 09/06/18 15:05 15:21 15:21 WBC 6.3 RBC 4.28 Hgb 12.3 Hct 36.4 MCV 85.1 MCH 28.9 MCHC 33.9 RDW 13.8 Plt Count 210 MPV 7.5 Neut % (Auto) 60.5 Lymph % (Auto) 27.6 [place] % (Auto) 7.7 Eos % (Auto) 3.4 Baso % (Auto) 0.8 Neut # (Auto) 3.8 Lymph # (Auto) 1.7 [place] # (Auto) 0.5 Eos # (Auto) 0.2 Baso # (Auto) 0.1 Sodium 137 Potassium 4.0 Chloride 103 Carbon Dioxide 24 Anion Gap 15 BUN 13 Creatinine 0.8 Est GFR ( Amer) > 60 Est GFR (Non-Af Amer) > 60 POC Glucose (mg/dL) 100 Random Glucose 94 D Calcium 9.0 Total Bilirubin 0.5 AST 28 ALT 41 Alkaline Phosphatase 99 CK-MB (Mass) < 0.22 Troponin I < 0.0120 Total Protein 7.2 Albumin 4.3 Globulin 2.9 Albumin/Globulin Ratio 1.5 Urine Color Urine Clarity Urine pH Ur Specific [place] Urine Protein Urine Glucose (UA) Urine Ketones Urine Blood Urine Nitrate Urine Bilirubin Urine Urobilinogen Ur Leukocyte Esterase Urine RBC (Auto) Ur Squamous Epith Cells 09/06/18 09/06/18 09/07/18 15:34 20:55 03:19 WBC RBC Hgb Hct MCV MCH MCHC RDW Plt Count MPV Neut % (Auto) Lymph % (Auto) [place] % (Auto) Eos % (Auto) Baso % (Auto) Neut # (Auto) Lymph # (Auto) [place] # (Auto) Eos # (Auto) Baso # (Auto) Sodium Potassium Chloride Carbon Dioxide Anion Gap BUN Creatinine Est GFR ( Amer) Est GFR (Non-Af Amer) POC Glucose (mg/dL) 97 155 H Random Glucose Calcium Total Bilirubin AST ALT Alkaline Phosphatase CK-MB (Mass) Troponin I Total Protein Albumin Globulin Albumin/Globulin Ratio Urine Color Colorless Urine Clarity Clear Urine pH 6.0 Ur Specific [place] 1.002 L Urine Protein Negative Urine Glucose (UA) Normal Urine Ketones Negative Urine Blood Negative Urine Nitrate Negative Urine Bilirubin Negative Urine Urobilinogen Normal Ur Leukocyte Esterase Neg Urine RBC (Auto) < 1 Ur Squamous Epith Cells < 1 09/07/18 06:45 WBC RBC Hgb Hct MCV MCH MCHC RDW Plt Count MPV Neut % (Auto) Lymph % (Auto) [place] % (Auto) Eos % (Auto) Baso % (Auto) Neut # (Auto) Lymph # (Auto) [place] # (Auto) Eos # (Auto) Baso # (Auto) Sodium Potassium Chloride Carbon Dioxide Anion Gap BUN Creatinine Est GFR ( Amer) Est GFR (Non-Af Amer) POC Glucose (mg/dL) 138 H Random Glucose Calcium Total Bilirubin AST ALT Alkaline Phosphatase CK-MB (Mass) Troponin I Total Protein Albumin Globulin Albumin/Globulin Ratio Urine Color Urine Clarity Urine pH Ur Specific [place] Urine Protein Urine Glucose (UA) Urine Ketones Urine Blood Urine Nitrate Urine Bilirubin Urine Urobilinogen Ur Leukocyte Esterase Urine RBC (Auto) Ur Squamous Epith Cells
[2018-09-07 08:18] LABS: FREE T4 0.77 ng/dL (0.78-2.19)
--- NOTE | 2018-09-07 08:45 | CON ---
DATE: 09/07/2018ATTENDING PHYSICIAN: Jluis Schneider MD LOCATION: Room #661, bed A. REASON FOR THE CONSULTATION: Blurred vision. CHIEF COMPLAINT: The patient was brought into [facility] from nude model's office with a history of blurred vision while she woke up this morning. From neurological point of view, I was called into evaluate her for further management. HISTORY OF PRESENT ILLNESS: Ms. Isaura Astudillo is a 68-year-old right-handed male, presenting with yesterday woke up with blurred vision, seeing nothing clear, all shadows. The symptoms not associating with any other visual changes such as double vision, speech impairment, problem in swallow, or any focal weakness. However, she has been admitting losing balance for the last few months. These episodes are not associating with the headache. However, the whole episode lasted when she woke up this morning. She feels normal to her baseline. PAST MEDICAL HISTORY: Hypertension, dyslipidemia, coronary artery disease, status post stent. PAST SURGICAL HISTORY: Bilateral knee surgery, using a cane at times, uses a walker. ALLERGIES: NO KNOWN ALLERGIES. PERSONAL HISTORY: Denies smoking or alcohol use. REVIEW OF SYSTEMS: A 12-point system being reviewed; from neuro, blurred vision. MEDICATION: Crestor, Ecotrin, Klonopin, Lopressor, Neurontin, clopidogrel, and Synthroid. PHYSICAL EXAMINATION: VITAL SIGNS: Blood pressure 132/73, mean artery pressure of 92, respiratory 16, temperature afebrile. NECK: Supple. No carotid bruits. HEART: Sounds regular. CHEST: Fair air entry. EXTREMITIES: No edema in legs. NEUROLOGIC EXAMINATION: Mental Status Examination: She is awake, alert and oriented to person, place and time. Speech is clear. Naming, repetition, fluency, comprehension all within normal. The patient is examined in the presence of her son. Cranial Nerve Examination: Visual field intact. Pupils reactive. Extraocular movement normal. No nystagmus. No facial sensory deficit. No facial asymmetry. Hearing is normal. Tongue is midline. Good gag. Motor Examination: Outstretched hand with eyes closed, no drift noted. Power is symmetric on either side. She is able to lift both lower extremities against the gravity; however, the pain limited the exam. Deep Tendon Reflexes: Biceps, brachialis, triceps at 2+ on either side. Both knees are 1+. Both ankles are absent. Plantars are downgoing. Sensory examination grossly intact. Coordination: Finger-nose test is intact. CONCLUSION: Ms. Isaura Astudillo has been presenting with as per neurological examination transient blurred vision. It could be iatrogenic of medication which she has been taking, gabapentin probably the higher dose or other medication could be a contributing the presenting problem. However, other possible causes should be ruled out from neurological point of view including carotid artery disease versus vertebrobasilar insufficiency. 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 WORKUP: CT of the head being reviewed, no acute pathology is noted. EKG, normal sinus rhythm. BLOOD WORKUP: WBC 6.3, hemoglobin 12.3, hematocrit 36.4, platelet 210. Sodium 137, potassium 4, chloride 103, bicarbonate 24, BUN 13 and creatinine 0.8, GFR more than 60, glucose 138. Urinalysis shows normal exam. RECOMMENDATION: 1. MRI of the brain to rule out any posterior cerebral artery territory ischemic process. 2. Carotid Doppler to rule out any stenosis. 3. Rule out any paroxysmal activities. 4. Continue aspirin and Plavix with a statin and blood pressure control to keep mean artery pressure around 100. 5. Neurontin dose, however, can be decreased the dose. I will discuss with the patient personally if I do not find any obvious source for her problem. The patient will be followed closely with you. Magdiel Quiroz MD
[2018-09-07 09:04] LABS: FOLATE 7.8 ng/mL
--- NOTE | 2018-09-07 11:00 | CARD ---
APPROVED REPORT Date of service: 09/06/2018 EKG Measurement Heart [id number] <Conclusion> Sinus rhythm with premature atrial complexes Otherwise normal ECG
--- NOTE | 2018-09-07 14:14 | CT ---
Date of service: 09/07/2018 CT chest without IV contrast Indication: lung mass Technique: Contiguous axial images were obtained through the chest without intravenous contrast enhancement. Sagittal and coronal reconstructions were generated and reviewed. This CT exam was performed using 1 or more of the following dose reduction techniques: Automated exposure control, adjustment of the MAA and/or kV according to patient size, and/or use of iterative reconstruction technique. Radiation dose (DLP): 658.7 MGy-cm. Comparison: Chest CT without contrast performed 01/05/18 Findings: Visualized portions of the inferior thyroid gland appear unremarkable. The mediastinal and hilar vascular structures appear within normal limits. The heart appears within normal limits of size. Coronary artery calcifications. Atherosclerotic calcifications of the aorta. No focal consolidation. No pleural effusion. No pneumothorax. 3 mm right middle lobe pulmonary nodule, stable. Limited visualization of the noncontrast upper abdomen: Cholecystectomy clips. 10 mm probable splenule. Mild degenerative changes. Impression: Stable 3 mm right middle lobe pulmonary nodule. Additional incidental findings as above.
--- NOTE | 2018-09-07 14:41 | VASCLAB ---
Date of service: 09/07/2018 PROCEDURE: Carotid Duplex Exam. HISTORY: ASSESS STENOSIS COMPARISON: None available. TECHNIQUE: Grayscale and duplex Doppler evaluation of the cervical carotid and vertebral arteries were performed. The common carotid, carotid bifurcations and cervical Internal Carotid Artery (ICA) and proximal External Carotid Artery (ECA) were evaluated. The vertebral arteries were evaluated for gross patency and flow direction. Report prepared by Virgilio Jasso, BS, RVT FINDINGS: RIGHT CAROTID ARTERIES: 1. Common Carotid Artery: No significant focal plaque formation of the right common carotid artery. Maximum Peak Systolic velocity: 92 cm/sec: End-diastolic velocity 18 cm/sec. 2. Carotid Bifurcation: plaque formation. Maximum Peak Systolic velocity: 158 cm/sec: End-diastolic velocity 24 cm/sec. 3. Internal Carotid Artery: Plaque description: 3.1. Proximal Segment: Peak systolic velocity 133 cm/sec: End-diastolic velocity 32 cm/sec - % stenosis 0-15% 3.2. Middle Segment: Peak systolic velocity 119 cm/sec: End-diastolic velocity 32 cm/sec - % stenosis 0-15% 3.3. Distal Segment: Peak systolic velocity 59 cm/sec: End-diastolic velocity 20 cm/sec - % stenosis 0-15% 4. External Carotid Artery: No significant focal plaque formation. Peak systolic velocity 158 cm/sec 5. ICA/CCA Ratio: 1.7 LEFT CAROTID ARTERIES: 1. Common Carotid Artery: No significant focal plaque formation of the left common carotid artery. Maximum Peak Systolic velocity: 121 cm/sec: End-diastolic velocity 19 cm/sec. 2. Carotid Bifurcation: plaque formation. Maximum Peak Systolic velocity: 106 cm/sec: End-diastolic velocity 15 cm/sec. 3. Internal Carotid Artery: Plaque description: 3.1. Proximal Segment: Peak systolic velocity 100 cm/sec: End-diastolic velocity 21 cm/sec - % stenosis 0-15% 3.2. Middle Segment: Peak systolic velocity 55 cm/sec: End-diastolic velocity 13 cm/sec - % stenosis 0-15% 3.3. Distal Segment: Peak systolic velocity 72 cm/sec: End-diastolic velocity 19 cm/sec - % stenosis 0-15% 4. External Carotid Artery: No significant focal plaque formation. Peak systolic velocity 105 cm/sec 5. ICA/CCA Ratio: 161 VERTEBRAL ARTERIES: 1. Right Vertebral Artery: The right vertebral artery flow direction is antegrade. 2. Left Vertebral Artery: The left vertebral artery flow direction is antegrade. OTHER FINDINGS: 1. Right Brachial Blood pressure: 142 mmHg. 2. Left Brachial Blood pressure: 134 mmHg. 3. No atherosclerotic calcification present IMPRESSION: RIGHT: Duplex scan does not suggest hemodynamically significant stenosis of the right extracranial carotid arteries. LEFT: Duplex scan does not suggest hemodynamically significant stenosis of the left extracranial carotid arteries.
[2018-09-07 16:30] VITALS: BP 131/76; PULSE 73; RESP 20; TEMP 97.9; O2SAT 95
--- NOTE | 2018-09-07 16:39 | CP.PCM.PN ---
Subjective - Date & Time of Evaluation Date of Evaluation: 09/07/18 Time of Evaluation: 15:20 - Subjective Subjective: Patient seen today , denies any chest pain, sob, weakness , numbness , tinglings , dizziness or blurred vision , C/O nervousness , oob ambulating the hallway without any problems BS stable and neurological deficit noted vss and labs reviewed- stable No overnight events reported by RN Objective - Vital Signs/Intake and Output Vital Signs (last 24 hours): Temp Pulse Resp BP Pulse Ox 97.9 F 73 20 131/76 95 09/07/18 15:15 09/07/18 15:15 09/07/18 15:15 09/07/18 15:15 09/07/18 15:15 Intake and Output: 09/07/18 09/07/18 06:59 18:59 Intake Total 570 350 Balance 570 350 - Medications Medications: Current Medications Aspirin (Ecotrin) 81 mg PO DAILY [facility] Last Admin: 09/07/18 11:00 Dose: 81 mg Clonazepam (Klonopin) 0.5 mg PO TID [facility] Last Admin: 09/07/18 14:01 Dose: 0.5 mg Clopidogrel Bisulfate (Plavix) 75 mg PO DAILY [facility] Last Admin: 09/07/18 11:46 Dose: 75 mg Gabapentin (Neurontin) 1,200 mg PO BID [facility] Last Admin: 09/07/18 11:45 Dose: 1,200 mg Heparin Sodium (Porcine) (Heparin) 5,000 units IVP Q12 [facility] Last Admin: 09/07/18 11:44 Dose: 5,000 units Influenza Virus Vaccine (Fluzone Quad [id number]) 60 mcg IM .ONCE ONE Stop: 09/08/18 10:01 Levothyroxine Sodium (Synthroid) 25 mcg PO DAILY@0630 [facility] Last Admin: 09/07/18 05:39 Dose: 25 mcg Metoprolol Tartrate (Lopressor) 50 mg PO BID [facility] Last Admin: 09/07/18 11:43 Dose: 50 mg Rosuvastatin Calcium (Crestor) 10 mg PO HS [facility] Last Admin: 09/06/18 22:30 Dose: 10 mg - Labs Labs: 09/06/18 15:21 09/06/18 15:21 - Constitutional Appears: Well, No Acute Distress - Respiratory Exam Respiratory Exam: Clear to Ausculation Bilateral, NORMAL BREATHING PATTERN - Cardiovascular Exam Cardiovascular Exam: REGULAR RHYTHM, +S1, +S2 - Neurological Exam Neurological Exam: Alert, Awake, Oriented x3 Assessment and Plan - Assessment and Plan (Free Text) Assessment: A/P 68-year-old female with pmhx of of hypertension high cholesterol diabetes CAD status post stent admitted with hypoglycemic event an d possible TIA BS stable and no neurological deficit noted CT HEAD- negative carotid doppler- negative CT- chest -Stable 3 mm right middle lobe pulmonary nodule. D/w with Dr. Schneider , cleared for discharge home today and f/u with Dr. Schneider office in 1 week discharge plan discussed with patient who understand s and agrees with plan
--- NOTE | 2018-09-07 19:20 | CP.PCM.DIS ---
Provider - Provider Date of Admission: 09/06/18 18:02 Attending physician: Jluis Schneider MD Consults: 09/06/18 21:52 Neurology Consult Routine Comment: Consulting Provider: Magdiel Quiroz Consulting Physician: Magdiel Quiroz Reason for Consult: tia Time Spent in preparation of Discharge (in minutes): 45 Hospital Course - Lab Results Lab Results: Most Recent Lab Values WBC 6.3 K/uL (4.8-10.8) 09/06/18 15:21 RBC 4.28 Mil/uL (3.80-5.20) 09/06/18 15:21 Hgb 12.3 g/dL (11.0-16.0) 09/06/18 15:21 Hct 36.4 % (34.0-47.0) 09/06/18 15:21 MCV 85.1 fL (81.0-99.0) 09/06/18 15:21 MCH 28.9 pg (27.0-31.0) 09/06/18 15:21 MCHC 33.9 g/dL (33.0-37.0) 09/06/18 15:21 RDW 13.8 % (11.5-14.5) 09/06/18 15:21 Plt Count 210 K/uL (130-400) 09/06/18 15:21 MPV 7.5 fL (7.2-11.7) 09/06/18 15:21 Neut % (Auto) 60.5 % (50.0-75.0) 09/06/18 15:21 Lymph % (Auto) 27.6 % (20.0-40.0) 09/06/18 15:21 [place] % (Auto) 7.7 % (0.0-10.0) 09/06/18 15:21 Eos % (Auto) 3.4 % (0.0-4.0) 09/06/18 15:21 Baso % (Auto) 0.8 % (0.0-2.0) 09/06/18 15:21 Neut # (Auto) 3.8 K/uL (1.8-7.0) 09/06/18 15:21 Lymph # (Auto) 1.7 K/uL (1.0-4.3) 12/19/18 15:21 [place] # (Auto) 0.5 K/uL (0.0-0.8) 09/06/18 15:21 Eos # (Auto) 0.2 K/uL (0.0-0.7) 09/06/18 15:21 Baso # (Auto) 0.1 K/uL (0.0-0.2) 09/06/18 15:21 ESR 5 mm/hr (0-20) 09/07/18 07:17 Sodium 137 mmol/L (132-148) 09/06/18 15:21 Potassium 4.0 mmol/L (3.6-5.2) 09/06/18 15:21 Chloride 103 mmol/L (98-107) 09/06/18 15:21 Carbon Dioxide 24 mmol/L (22-30) 09/06/18 15:21 Anion Gap 15 (10-20) 09/06/18 15:21 BUN 13 mg/dL (7-17) 09/06/18 15:21 Creatinine 0.8 mg/dL (0.7-1.2) 09/06/18 15:21 Est GFR ( Amer) > 60 09/06/18 15:21 Est GFR (Non-Af Amer) > 60 09/06/18 15:21 POC Glucose (mg/dL) 100 mg/dL (65-110) 09/07/18 11:59 Random Glucose 94 mg/dL (65-105) D 09/06/18 15:21 Hemoglobin A1c 6.6 % (4.2-6.5) H D 09/07/18 07:17 Calcium 9.0 mg/dl (8.6-10.4) 09/06/18 15:21 Total Bilirubin 0.5 mg/dL (0.2-1.3) 09/06/18 15:21 AST 28 U/L (14-36) 09/06/18 15:21 ALT 41 U/L (9-52) 09/06/18 15:21 Alkaline Phosphatase 99 U/L (38-126) 09/06/18 15:21 CK-MB (Mass) < 0.22 ng/mL (0.0-3.38) 09/06/18 15:21 Troponin I < 0.0120 ng/mL (0.00-0.120) 09/06/18 15:21 C-React Prot High Sens 1.46 mg/L (1.00-3.00) 09/07/18 07:17 Total Protein 7.2 g/dL (6.3-8.3) 09/06/18 15:21 Albumin 4.3 g/dL (3.5-5.0) 09/06/18 15:21 Globulin 2.9 gm/dL (2.2-3.9) 09/06/18 15:21 Albumin/Globulin Ratio 1.5 (1.0-2.1) 09/06/18 15:21 Triglycerides 112 mg/dL (0-149) D 09/07/18 07:17 Cholesterol 111 mg/dL (0-199) 09/07/18 07:17 LDL Cholesterol Direct 55 mg/dL (0-129) 09/07/18 07:17 HDL Cholesterol 51 mg/dL (30-70) 09/07/18 07:17 Vitamin B12 293 pg/mL (239-931) 09/07/18 07:17 Folate 7.8 ng/mL 09/07/18 07:17 Homocysteine 12.2 umol/L (4.7-12.6) 09/07/18 07:17 Free T4 0.77 ng/dL (0.78-2.19) L 09/07/18 07:17 TSH 3rd Generation 2.05 mIU/L (0.46-4.68) 09/07/18 07:17 Urine Color Colorless (YELLOW) 09/06/18 15:34 Urine Clarity Clear (Clear) 09/06/18 15:34 Urine pH 6.0 (5.0-8.0) 09/06/18 15:34 Ur Specific [place] 1.002 (1.003-1.030) L 09/06/18 15:34 Urine Protein Negative mg/dL (NEGATIVE) 09/06/18 15:34 Urine Glucose (UA) Normal mg/dL (Normal) 09/06/18 15:34 Urine Ketones Negative mg/dL (NEGATIVE) 09/06/18 15:34 Urine Blood Negative (NEGATIVE) 09/06/18 15:34 Urine Nitrate Negative (NEGATIVE) 09/06/18 15:34 Urine Bilirubin Negative (NEGATIVE) 09/06/18 15:34 Urine Urobilinogen Normal mg/dL (0.2-1.0) 09/06/18 15:34 Ur Leukocyte Esterase Neg [place]/uL (Negative) 09/06/18 15:34 Urine RBC (Auto) < 1 /hpf (0-3) 09/06/18 15:34 Ur Squamous Epith Cells < 1 /hpf (0-5) 09/06/18 15:34 - Hospital Course Hospital Course: Chief complaint: Weakness, hypoglycemic attack. HPI: Patient is a 68-year-old female with a history of hypertension high cholesterol diabetes CAD status post stent came to see service desk team lead today, and the service desk team lead office she was complaining of dizziness, blurring of vision. This morning when she wake up her blood sugar was on the low side. Again while she was waiting for the service desk team lead office she started having low blood sugar, and she was sent to the emergency room for further monitoring. Patient was also complaining of increasing dizziness, weakness, and feeling like she is passing out. In the emergency room patient was evaluated had extensive workup, so further workup were negative but she still feeling blurring of vision, and dizziness. Right now patient is not feeling well again. Her blood sugar is in the 90s. But she was able to eat, she has no nausea, no vomiting mild headache noted. She is also complaining of increasing bilateral leg pain, knee pain noted Past medical history: Hypertension Hypercholesterolemia CAD Status post a stent Surgical history: Bilateral knee surgery. Patient had a history of a stent placement. Patient has no known drug allergy Personal history: Patient used to be a heavy smoker in the past. Used to be smoking at least 25 packs of cigarettes in the past, for more than 20 years, quit 30 years ago no drug abuse Family history noncontributory Patient has 7 kids, many grandkids Review of system: Complaining of some headache. Blurring vision occasionally noted. When the blood sugar level is low patient is feeling increasing blurring. No chest pain. Denies any nausea vomiting. No GI symptoms otherwise. Physical examination: Vital signs stable chest good air entry bilaterally regular heart sound nontender abdomen no pedal edema Patient labs reviewed Mild hypoglycemia noted. CAT scan of the head is negative. I spoke to the emergency room attending. I also spoke to the patient. Patient is able to stand up and walk. Neurologically currently intact. Assessment/recommendation: 67-year-old female with a history of hypertension, asthma, bipolar disease, diabetes, gastritis. CAD. Status post a stent now a Admitted to the hospital with hypoglycemic episodes. Possible transient ischemic changes cannot be ruled out. Neurological watch. Accu-Chek monitoring. Repeat CT scan in the morning Carotid Doppler. GI and DVT prophylaxis. We will follow the patient Course in the hospital: Patient was seen in the emergency room Intravenous IV fluids started with a dextrose. The blood sugar started slowly improving. Patient today was seen by neurologist, I also recommended a repeat CAT scan/MRI but the patient was reluctant to do this procedure. She underwent a CAT scan of the chest which is showing 3 mm nodules in the left middle lung zone. Patient is otherwise feeling well. Blood sugar stable today. She is able to walk without any difficulty. Patient is clinically stable to go home today. Assessment and recommendation: Patient is a 67-year-old female with a history of hypertension asthma bipolar disease diabetes gastritis as well as CAD status post a stent admitted with a significant hypoglycemic episode associated with the dizziness. Less likely cardiac, will less likely neurological Clinically stable. She will be discharged home, she will follow-up as an outpatient. I recommended to continue her home medications. Discharge Plan - Discharge Medications Prescriptions: clonazePAM [Klonopin] 0.5 mg PO TID #30 tab - Follow Up Plan Condition: STABLE Disposition: HOME/ ROUTINE Instructions: Transient Ischemic Attack, Heart Healthy Diet, Coronary Heart Disease (DC), Clonazepam Additional Instructions: Please follow up with Dr. Schneider office in 1 week- call and make appointment - [phone] Please continue medication as per med. rec. Referrals: Jluis Schneider MD [Staff Provider] -
[2018-09-08] MEDS ORDERED: Influenza Vaccine 60 MCG/0.5 ML SYR (3 yr & up) IM ONE (10:00)
--- NOTE | 2018-09-08 10:30 | EEG ---
DATE: 09/07/2018 This is a 16-channel electroencephalogram of awake and drowsy adult. During the study, photic stimulation was performed. Hyperventilation was not performed. The resting electroencephalogram consists of 20 to 30 microvolt, 9 to 11 Hertz alpha activities seen at parietal and occipital leads. Anteriorly, fast activity superimposed with 2 to 3 Hz delta activity seen. Intermittent movement artifact contaminated the background rhythm. Photic stimulation did not evoke driving response noted at 2 to 20 Hertz. IMPRESSION: This is a normal electroencephalogram of awake and drowsy adult. During the study, neither electroencephalographic paroxysmal activities nor focal slowing noted. Magdiel Quiroz MD
== END 2018-09-07 20:55 | disposition home or self-care (01) ==
LOC: C.ER 14:31 → C.6T 18:02
PROVIDERS: ADMIT Internal Medicine; ATTEND Internal Medicine
DX: E11.649 Type 2 diabetes mellitus with hypoglycemia without coma (principal); E11.42 Type 2 diabetes mellitus with diabetic polyneuropathy; I10 Essential (primary) hypertension; I25.10 Atherosclerotic heart disease of native coronary artery without angina pectoris; E03.9 Hypothyroidism, unspecified; F31.9 Bipolar disorder, unspecified; J45.909 Unspecified asthma, uncomplicated; E78.5 Hyperlipidemia, unspecified; E78.00 Pure hypercholesterolemia, unspecified; F20.9 Schizophrenia, unspecified; Z87.891 Personal history of nicotine dependence; Z90.49 Acquired absence of other specified parts of digestive tract; Z95.5 Presence of coronary angioplasty implant and graft
CPT/HCPCS: 36415; 70450; 71045; 71250; 80053; 80061; 81001; 82553; 82607; 82746; 82948; 83036; 83090; 84439; 84443; 84484; 85025; 85651; 86140; 93005; 93880; 95812; 96360; 96374; 97166; 97530; 99285; G0378; G8987; G8988; J1644; J2405; J7030; J7060